=== PATIENT | male | born 1980 | race Caucasian/White ===

== ENCOUNTER 2016-09-06 03:46 | Inpatient (IN) | payer OTHER ==
[~2016-09-06] VITALS: Ht 157.5 cm; Wt 67.4 kg
--- NOTE | 2016-09-06 03:48 | ED.ADGEN ---
Adult General Chief Complaint Chief Complaint chest pain HPI HPI Patient is a 35 year old male who presents with with chest pressure that started about 2 hours ago. He states nothing makes it better or worse. Facial short of breath even sitting. He states it feels like somebody sitting on his chest. She's either had this sensation before. He denies any calf pain or long car trips prior to this. He did just get out of emergency department after trying to cut his wrist yesterday for suicide attempt. He states he was cleared by and didn't need hospitalization for psychiatric illness. He does smoke cigarettes and has since the age of 13 and averages about half a pack per day. He states is on no medications. Has a family history of coronary disease with his dad who got a stent about 5 years ago. Review of Systems Review of Systems Constitutional: Denies fever or chills [] Eyes: Denies change in visual acuity, redness, or eye pain [] HENT: Denies nasal congestion or sore throat [] Respiratory: Denies cough or shortness of breath [] Cardiovascular: No additional information not addressed in HPI [] GI: Denies abdominal pain, nausea, vomiting, bloody stools or diarrhea [] : Denies dysuria or hematuria [] Musculoskeletal: Denies back pain or joint pain [] Integument: Denies rash or skin lesions [] Neurologic: Denies headache, focal weakness or sensory changes [] Endocrine: Denies polyuria or polydipsia [] Current Medications Current Medications Current Medications Medications (Trade) Dose Ordered Sig/Harry Start Time Stop Time Status Last Admin Dose Admin Albuterol Sulfate (Ventolin) 2.5 mg STK-MED ONCE 09/06/16 04:43 09/06/16 04:44 DC Albuterol/ Ipratropium (Duoneb) 3 ml 1X ONCE 09/06/16 04:30 09/06/16 04:51 DC 09/06/16 04:30 3 ML Info (Do NOT chart on this entry -- for MONITORING) 1 each PRN DAILY PRN 09/06/16 05:00 09/08/16 04:59 Iohexol (Omnipaque 300 Mg/ml) 75 ml 1X ONCE 09/06/16 05:00 09/06/16 05:01 DC 09/06/16 04:56 75 ML Morphine Sulfate (Morphine 4mg Syringe) 4 mg PRN Q15MIN PRN 09/06/16 04:30 09/07/16 04:29 09/06/16 04:35 4 MG Ondansetron HCl (Zofran) 4 mg PRN Q4HRS PRN 09/06/16 06:15 09/07/16 06:14 Sodium Chloride 1,000 ml @ 1,000 mls/hr 1X ONCE 09/06/16 05:30 09/06/16 06:29 09/06/16 04:45 1,000 MLS/HR Allergies Allergies Allergies Uncoded Allergies Type Severity Reaction Last Updated Verified NOVACAINE Allergy Unknown 09/06/16 Physical Exam Physical Exam Constitutional: Well developed, well nourished, no acute distress, non-toxic appearance. [] HENT: Normocephalic, atraumatic, bilateral external ears normal, oropharynx moist, no oral exudates, nose normal. [] Eyes: PERRLA, EOMI, conjunctiva normal, no discharge. [] Neck: Normal range of motion, no tenderness, supple, no stridor. [] Cardiovascular:Heart rate regular rhythm, no murmur [] Lungs & Thorax: Mild expiratory wheezing bilaterally, good air flow bilaterally [] Abdomen: Bowel sounds normal, soft, no tenderness, no masses, no pulsatile masses. [] Skin: Warm, dry, no erythema, no rash. [] Back: No tenderness, no CVA tenderness. [] Extremities: No tenderness, no cyanosis, no clubbing, ROM intact, no edema. [] Neurologic: Alert and oriented X 3, normal motor function, normal sensory function, no focal deficits noted. [] Psychologic: Affect normal, judgement normal, mood normal. [] Current Patient Data Vital Signs Vital Signs Date Time Temp Pulse Resp B/P (MAP) Pulse Ox O2 Delivery O2 Flow Rate FiO2 09/06/16 04:35 22 96 Room Air Lab Results Laboratory Tests Test 09/06/16 04:15 White Blood Count 9.7 x10^3/uL (4.0-11.0) Red Blood Count 2.98 x10^6/uL (4.30-5.70) L Hemoglobin 9.5 g/dL (13.0-17.5) L Hematocrit 27.5 % (39.0-53.0) L Mean Corpuscular Volume 92 fL (79-100) Mean Corpuscular Hemoglobin 32 pg (25-35) Mean Corpuscular Hemoglobin Concent 35 g/dL (31-37) Red Cell Distribution Width 13.2 % (11.5-14.5) Platelet Count 200 x10^3/uL (140-400) Neutrophils (%) (Auto) 69 % (31-73) Lymphocytes (%) (Auto) 22 % (24-48) L Monocytes (%) (Auto) 6 % (0-9) Eosinophils (%) (Auto) 2 % (0-3) Basophils (%) (Auto) 1 % (0-3) Neutrophils # (Auto) 6.7 x10^3uL (1.8-7.7) Lymphocytes # (Auto) 2.2 x10^3/uL (1.0-4.8) Monocytes # (Auto) 0.6 x10^3/uL (0.0-1.1) Eosinophils # (Auto) 0.2 x10^3/uL (0.0-0.7) Basophils # (Auto) 0.0 x10^3/uL (0.0-0.2) Prothrombin Time 9.9 SEC (9.4-11.4) Prothrombin Time INR 1.0 (0.9-1.1) PTT 26 SEC (23-33) Urine Collection Type Unknown Urine Color Yellow Urine Clarity Clear Urine pH 5.5 Urine Specific [place] 1.010 Urine Protein 30 mg/dl (NEG-TRACE) Urine Glucose (UA) Neg mg/dL (NEG) Urine Ketones (Stick) Neg mg/dL (NEG) Urine Blood Small (NEG) Urine Nitrite Neg (NEG) Urine Bilirubin Neg (NEG) Urine Urobilinogen Dipstick 0.2 mg/dL (0.2 mg/dL) Urine Leukocyte Esterase Neg (NEG) Urine RBC 0 /HPF (0-2) Urine WBC Occ /HPF (0-4) Urine Squamous Epithelial Cells Occ /LPF Urine Bacteria Few /HPF (0-FEW) Sodium Level 140 mmol/L (136-145) Potassium Level 3.8 mmol/L (3.5-5.1) Chloride Level 106 mmol/L (98-107) Carbon Dioxide Level 26 mmol/L (21-32) Anion Gap 8 (6-14) Blood Urea Nitrogen 12 mg/dL (8-26) Creatinine 1.1 mg/dL (0.7-1.3) Estimated GFR (Cockcroft-Gault) 75.7 Glucose Level 105 mg/dL (70-99) H Calcium Level 8.1 mg/dL (8.5-10.1) L Magnesium Level 1.5 mg/dL (1.8-2.4) L Total Bilirubin 0.3 mg/dL (0.2-1.0) Direct Bilirubin 0.1 mg/dL (0.0-0.2) Aspartate Amino Transferase (AST) 63 U/L (15-37) H Alanine Aminotransferase (ALT) 32 U/L (16-63) Alkaline Phosphatase 65 U/L (46-116) Creatine Kinase 2888 U/L (39-308) H Creatine Kinase MB (Mass) 6.6 ng/mL (0.0-3.6) H Creatine Kinase MB Relative Index 0.2 % (0-4) Troponin I Quantitative < 0.017 ng/mL (0-0.055) JA-Uhf-M-Type Natriuretic Peptide 59 pg/mL (0-124) Total Protein 6.3 g/dL (6.4-8.2) L Albumin 3.0 g/dL (3.4-5.0) L Lipase 240 U/L (73-393) Urine Opiates Screen Pos (NEG) Urine Methadone Screen Neg (NEG) Urine Barbiturates Neg (NEG) Urine Phencyclidine Screen Neg (NEG) Urine Amphetamine/Methamphetamine Neg (NEG) Urine Benzodiazepines Screen Neg (NEG) Urine Cocaine Screen Neg (NEG) Urine Cannabinoids Screen Pos (NEG) Urine Ethyl Alcohol Neg (NEG) EKG EKG EKG shows sinus tachycardia the rate of 115 bpm, no ST elevations or T-wave inversions appreciated, normal axis, QTC 414 ms, as interpreted by me. Radiology/Procedures Radiology/Procedures [address] [address] IMAGING REPORT Signed PATIENT: ALLI RITTER ACCOUNT: [id number] : 1980 LOCATION: ER AGE: 35 SEX: M EXAM STATUS: PRE ER ORD. PHYSICIAN: MAGDALENA NIX MD REASON: soa, tachy, chest pain PROCEDURE: CT ANGIOGRAPHY CHEST PROCEDURE CT chest with contrast, pulmonary angiogram. HISTORY Chest pain, shortness of air, dizziness, tachycardia. Recent surgery of wrist. TECHNIQUE Helical CT imaging of the chest is performed after 75 cc Omnipaque 300 IV contrast using pulmonary angiogram protocol. A coronal 3D MIP reconstruction is performed to better evaluate the pulmonary arteries. PQRS: One or more the following individualized dose reduction techniques were utilized for the study: 1. Automated exposure control. 2. Adjustment of the mA and/or kV according to patient size. 3. Use of iterative reconstruction technique. COMPARISON None. FINDINGS Pulmonary arteries are adequately contrast opacified. There is partial filling defect in 2 subsegmental pulmonary arteries in the left upper lobe, image 57. No other filling defect is seen. No thoracic aortic dissection. There is ectasia of the ascending thoracic aorta. Thyroid is symmetric. Subcentimeter mediastinal lymph nodes. No hilar adenopathy. Cardiac size normal, no pericardial effusion. Respiratory motion artifact. Central airways are patent. Small areas of ground-glass opacity are seen in the left upper lobe and superior segment of right lower lobe and in the bilateral lower lobes. Discoid atelectasis in the bilateral basilar lower lobes. Mild mucous plugging basilar right lower lobe. No pleural effusion. Visualized upper abdomen is unremarkable. No compression fracture in the thoracic spine. IMPRESSION 1. Study is mildly positive for pulmonary embolus. There are partial filling defects in 2 subsegmental pulmonary arteries in the left upper lobe. 2. Mild right lower lobe bronchitis. 3. There are mild scattered ground-glass opacities in the lungs. Finding may be infectious/inflammatory or atelectatic. Electronically signed by: Tae Rodriguez MD (September 06, 2016 05:20:27) DICTATED AND SIGNED BY: TAE RODRIGUEZ MD DATE: 09/06/16 0520 CC: MAGDALENA NIX MD; PCP,NO ~ Course & Med Decision Making Course & Med Decision Making Pertinent Labs and Imaging studies reviewed. (See chart for details) CT angiogram confirms 2 small PEs. Patient is tachycardic and needed oxygen when he was sleeping. He received DuoNeb's, 2 L IV fluids and is being started on heparin and be admitted to Dr. Mosqueda. He is in stable condition at this time. Final Impression Final Impression Chest pain Pulmonary embolism Rhabdomyolysis Problems: Dragon Disclaimer Dragon Disclaimer This electronic medical record was generated, in whole or in part, using a voice recognition dictation system. MAGDALENA NIX MD September 06, 2016 03:48
[2016-09-06] MEDS ORDERED: IV NORMAL SALINE 1,000ML 1,000 ML IV SCH (04:05)
[2016-09-06] MEDS ORDERED: ONDANSETRON PF 4 MG/2 ML VIAL. IV ONE (04:30)
[2016-09-06] MEDS ORDERED: MORPHINE SULFATE 4 MG/ML DISP.SYRIN. IV/SQ PRN (04:30)
[2016-09-06] MEDS ORDERED: IPRATRPIUM/ALBUTEROL 0.5/2.5MG 3 ML NEBU. NEB ONE (04:30)
[2016-09-06 04:32] LABS: BASO % 1 % (0-3); EOS # 0.2 x10^3/uL (0.0-0.7); EOS % 2 % (0-3); HEMATOCRIT 27.5 % (39.0-53.0); HEMOGLOBIN 9.5 g/dL (13.0-17.5); LYMPH # 2.2 x10^3/uL (1.0-4.8); LYMPH % 22 % (24-48); MEAN CORPUSCULAR HEMOGLOBIN 32 pg (25-35); MEAN CORPUSCULAR HGB CONC 35 g/dL (31-37); MEAN CORPUSCULAR VOLUME 92 fL (79-100); MONO # 0.6 x10^3/uL (0.0-1.1); MONO % 6 % (0-9); NEUT # 6.7 x10^3uL (1.8-7.7); NEUT % 69 % (31-73); PLATELET COUNT 200 x10^3/uL (140-400); RED BLOOD COUNT 2.98 x10^6/uL (4.30-5.70); RED CELL DISTRIBUTION WIDTH 13.2 % (11.5-14.5); WHITE BLOOD COUNT 9.7 x10^3/uL (4.0-11.0)
[2016-09-06 04:40] LABS: BILIRUBIN,URINE NEG (NEG); CLARITY,URINE CLEAR; COLOR,URINE YELLOW; GLUCOSE,URINE NEG (NEG)
[2016-09-06 04:41] LABS: BACTERIA,URINE FEW /HPF (0-FEW); NITRITE,URINE NEG (NEG); RBC,URINE 0 /HPF (0-2); SQUAMOUS EPITHELIAL CELL,UR OCC /LPF; UROBILINOGEN,URINE 0.2 mg/dL (0.2 mg/dL); WBC,URINE OCC /HPF (0-4)
[2016-09-06] MEDS ORDERED: ALBUTEROL SULFATE 2.5 MG/3 ML NEBU. ONE (04:43)
[2016-09-06 04:51] LABS: BARBITURATES NEG (NEG); BENZODIAZEPINES NEG (NEG); CANNABINOIDS POS (NEG); COCAINE NEG (NEG); METHADONE NEG (NEG); OPIATES POS (NEG); PHENCYCLIDINE NEG (NEG)
[2016-09-06 04:54] LABS: AMPHETAMINE/METHAMPHETAMINE NEG (NEG)
[2016-09-06] MEDS ORDERED: CONTRAST GIVEN MC PRN (05:00)
[2016-09-06] MEDS ORDERED: IOHEXOL 300 MG/ML 75 ML VIAL. IV ONE (05:00)
[2016-09-06 05:05] LABS: CALCIUM 8.1 mg/dL (8.5-10.1); CREATININE 1.1 mg/dL (0.7-1.3); DIRECT BILIRUBIN 0.1 mg/dL (0.0-0.2); GFR 75.7; MAGNESIUM 1.5 mg/dL (1.8-2.4); POTASSIUM 3.8 mmol/L (3.5-5.1); TOTAL BILIRUBIN 0.3 mg/dL (0.2-1.0); TOTAL PROTEIN 6.3 g/dL (6.4-8.2)
--- NOTE | 2016-09-06 05:22 | RAD ---
PROCEDURE CT chest with contrast, pulmonary angiogram. HISTORY Chest pain, shortness of air, dizziness, tachycardia. Recent surgery of wrist. TECHNIQUE Helical CT imaging of the chest is performed after 75 cc Omnipaque 300 IV contrast using pulmonary angiogram protocol. A coronal 3D MIP reconstruction is performed to better evaluate the pulmonary arteries. PQRS: One or more the following individualized dose reduction techniques were utilized for the study: 1. Automated exposure control. 2. Adjustment of the mA and/or kV according to patient size. 3. Use of iterative reconstruction technique. COMPARISON None. FINDINGS Pulmonary arteries are adequately contrast opacified. There is partial filling defect in 2 subsegmental pulmonary arteries in the left upper lobe, image 57. No other filling defect is seen. No thoracic aortic dissection. There is ectasia of the ascending thoracic aorta. Thyroid is symmetric. Subcentimeter mediastinal lymph nodes. No hilar adenopathy. Cardiac size normal, no pericardial effusion. Respiratory motion artifact. Central airways are patent. Small areas of ground-glass opacity are seen in the left upper lobe and superior segment of right lower lobe and in the bilateral lower lobes. Discoid atelectasis in the bilateral basilar lower lobes. Mild mucous plugging basilar right lower lobe. No pleural effusion. Visualized upper abdomen is unremarkable. No compression fracture in the thoracic spine. IMPRESSION 1. Study is mildly positive for pulmonary embolus. There are partial filling defects in 2 subsegmental pulmonary arteries in the left upper lobe. 2. Mild right lower lobe bronchitis. 3. There are mild scattered ground-glass opacities in the lungs. Finding may be infectious/inflammatory or atelectatic. Electronically signed by: Tae Rodriguez MD (September 06, 2016 05:20:27)
[2016-09-06] MEDS ORDERED: IV NORMAL SALINE 1,000ML 1,000 ML IV ONE (05:30)
[2016-09-06] MEDS ORDERED: ONDANSETRON PF 4 MG/2 ML VIAL. IV PRN (06:15)
[2016-09-06] MEDS ORDERED: HEPARIN for IV BOLUS 10,000 UNIT/10 ML VIAL. IV PRN ×2 (06:30)
[2016-09-06] MEDS ORDERED: HEPARIN for IV BOLUS 10,000 UNIT/10 ML VIAL. IV ONE ×2 (06:30→09:00)
[2016-09-06] MEDS ORDERED: HEPARIN 25,000UTS/500ML PREMIX 500 ML IV PRN (06:30)
--- NOTE | 2016-09-06 06:41 | EKG ---
[address] [address] Test Date: 2016-09-06 Test Time: 04:11:03 Pat Name: ALLI RITTER Department: Room: 111 A Gender: M Frame Nailer: JESSICA : 1980 Requested By: MAGDALENA NIX Order Number: [id number] Reading MD: Ned Carrizales Measurements Intervals [place] Rate: 115 P: 60 IA: 108 QRS: 42 QRSD: 82 T: 39 QT: 298 QTc: 414 Interpretive Statements SINUS TACHYCARDIA Electronically Signed On 09-12-2016 9:03:04 CDT by Ned Carrizales
--- NOTE | 2016-09-06 06:59 | RAD ---
Indication: Chest pain and shortness of air. Time of exam 0431 hours. FINDINGS: The heart size is normal. The lungs are clear. No pleural effusion or pneumothorax is identified. The pulmonary vascularity is normal. IMPRESSION: No acute abnormality detected.
--- NOTE | 2016-09-06 07:47 | ACF ---
Admission Criteria Forms PULMONARY EMBOLISM Clinical Indications for Admission to Inpatient Care (Place 'X' for any and all applicable criteria): Admission is indicated by ANY ONE of the following 1,2,3,4,5 [ ]I. Onset of hypoxia [ ]II. Hemodynamic instability 5 [ ]III. Massive pulmonary embolism (eg, acute embolism causing sustained hypotension, pulselessness, or bradycardia)5 [ ]IV. Need for IV narcotics (eg, to treat dyspnea) [ ]V. Current use of home oxygen therapy [ ]. Active bleeding [ ]VII. Recent surgery [ ]VIII. Active peptic ulcer disease [ ]IX. Documented extensive thrombosis (eg, clot in vena cava or above iliofemoral bifurcation) [ ]X. Embolism while on anticoagulation [ ]XI. 6 [X]XII. Appropriate monitoring and therapy cannot be provided in home or outpatient setting. [ ]XIII. Systemic or catheter-directed thrombolysis 5,7 [ ]XIV. Catheter embolectomy and fragmentation 6 [ ]XV. Vena cava filter placement5 [ ]XVI. Severely diminished cardiopulmonary reserve (eg, cor pulmonale, pulmonary hypertension) [ ]XVII. Severe renal failure (eg, GFR less than 30 mL/min/1.73m2 (0.5 mL/sec/ 1.73m2)) [ ]XVIII.Right ventricular dysfunction (eg, by echocardiogram) 6,11 [ ]XIX. Positive cardiac biomarker (eg, troponin T or I > 0.1 ng/mL (mcg/L), highly sensitive troponin I assay greater than 0.014 ng/mL (mcg/L), BNP or NT proBNP > assay threshold)5,8,9 [ ]XX. Known clotting abn or def (eg, liver disease, antithrombin III, protein C, or protein S abnormality) [ ]XXI. History of heparin-induced thrombocytopenia [ ]XXII. Inpatient admission required rather than observation care (Also use Pulmonary Embolism: Observation Care guideline as appropriate) because of ANY ONE of the following: [ ] a) Significant autoimmune (thrombocytopenia) or coagulopathic reaction occurs in response to anticoagulation [ ] b) Respiratory symptoms (eg, tachypnea, dyspnea) that are severe or persistent [ ] c) Other condition, treatment, or monitoring requiring inpatient admission Extended stay beyond goal length of stay may be needed for 3,28 [ ]a) Hemorrhage or recent surgery [ ]b) Recurrent thromboembolism [ ]c) Persistent hypoxemia [ ]d) Heparin-induced thrombocytopenia The original [facility] content created by [facility] has been revised. The portions of the content which have been revised are identified through the use of italic text or in bold, and [facility] has neither reviewed nor approved the modified material. All other unmodified content is copyright [facility]. Please see references footnoted in the original [facility] edition 2016 Admission Criteria Met?: Yes NOLBERTO YOUNG September 06, 2016 07:47
[2016-09-06] MEDS ORDERED: DOXY100C PO (08:54)
[2016-09-06] MEDS ORDERED: SENN-37 PO (08:54)
[2016-09-06] MEDS ORDERED: OXYC5TAB PO (08:56)
[2016-09-06 09:31] VITALS: BP 120/82
--- NOTE | 2016-09-06 09:41 | PDOC2 ---
LEONEL FARMER PROJECT MANAGEMENT INSTRUCTOR 09/06/16 0941: CONSULT Date of Admission DATE: 09/06/16 TIME: 09:38 Reason for Consult: cp Problem List Problems Medical Problems: (1) Pulmonary emboli Status: Acute History of Present Illness Mr Nation is a 35 year old male just discharged from yesterday after suicide attempt and surgical repair of left wrist. He presents today with complaints of chest pressure and sharp pain. Discomfort is worsened with deep inspiration. He denies discomfort if he lays quietly. He denies increase with exertion or position change. He denies any other complaints. Pulmonary: Asthma Psych: Other (recent suicide attempt) Past Surgical History surgical repair left wrist post suicide attempt, completed at in the last 48 hours. Past Surgical History: Appendectomy Family History CAD - father Mother - diabetes and cancer Social History + smoker, denies illicit drugs or significant ETOH, suicide attempt requiring surgical repair left wrist at within the last 48 hours. treated and released by . Current Medications Current Medications Sodium Chloride 1,000 ml @ 1,000 mls/hr Q1H IV Last administered on 09/06/16 04:35; Start 09/06/16 at 04:05; Stop 09/06/16 at 05:04; Status DC Morphine Sulfate (Morphine 4mg Syringe) 4 mg PRN Q15MIN PRN IV/SQ PAIN GREATER THAN 3/10 Last administered on 09/06/16 04:35; Start 09/06/16 at 04:30; Stop 02/14 at 04:29 Ondansetron HCl (Zofran) 4 mg 1X ONCE IV Last administered on 09/06/16 04:35; Start 09/06/16 at 04:30; Stop 09/06/16 at 04:51; Status DC Iohexol (Omnipaque 300 Mg/ml) 75 ml 1X ONCE IV Last administered on 09/06/16 04:56; Start 09/06/16 at 05:00; Stop 09/06/16 at 05:01; Status DC Albuterol/ Ipratropium (Duoneb) 3 ml 1X ONCE NEB Last administered on 04:30; Start 09/06/16 at 04:30; Stop 09/06/16 at 04:51; Status DC Albuterol Sulfate (Ventolin) 2.5 mg STK-MED ONCE .ROUTE ; Start 09/06/16 at 04:43 ; Stop 09/06/16 at 04:44; Status DC Info (Do NOT chart on this entry -- for MONITORING) 1 each PRN DAILY PRN MC SEE COMMENTS; Start 09/06/16 at 05:00; Stop 09/08/16 at 04:59 Sodium Chloride 1,000 ml @ 1,000 mls/hr 1X ONCE IV Last administered on 04:45; Start 09/06/16 at 05:30; Stop 09/06/16 at 06:29; Status DC Ondansetron HCl (Zofran) 4 mg PRN Q4HRS PRN IV NAUSEA/VOMITING; Start 09/06/16 at 06:15; Stop 09/07/16 at 06:14 Heparin Sodium/ Dextrose 500 ml @ 0 mls/hr CONT PRN IV SEE I/O RECORD Last administered on 09/06/16 09:07; Start 09/06/16 at 06:30 Heparin Sodium (Porcine) 5,000 unit 1X ONCE IV ; Start 09/06/16 at 06:30; Stop 09/06/16 at 06:34; Status DC Heparin Sodium (Porcine) 2,000 unit PRN Q6HRS PRN IV FOLLOW PROTOCOL GUIDELINES ; Start 09/06/16 at 06:30 Heparin Sodium (Porcine) 1,000 unit PRN Q6HRS PRN IV FOLLOW PROTOCOL GUIDELINES ; Start 09/06/16 at 06:30 Heparin Sodium (Porcine) 5,000 unit 1X ONCE IV Last administered on 09/06/16 09:10; Start 09/06/16 at 09:00; Stop 09/06/16 at 09:01; Status DC Active Scripts Active Reported Oxycodone Hcl 5 Mg Tablet 1-2 Tab PO PRN Q6HRS PRN Vibramycin (Doxycycline Hyclate) 100 Mg Capsule 1 Cap PO BID 10 Days Senokot-S Tablet (Sennosides/Docusate Sodium) 1 Each Tablet 1 Tab PO BID Allergies: Uncoded Allergies: NOVACAINE (Allergy, Unknown, 09/06/16) Review of System as per HPI General: Alert, Oriented X3, Cooperative, No acute distress HEENT: Atraumatic, EOMI, Mucous membr. moist/pink Lungs: Other (expiratory wheezing throughout) Heart: Regular rate, Normal S1, Normal S2, Other (no gallops, clicks or rubs) Abdomen: Normal bowel sounds, Soft, No tenderness Extremities: No clubbing, No cyanosis, Normal pulses, Other (left wrist splint and ACEI in place) Neuro: Normal speech, Strength at 5/5 X4 ext Psych/Mental Status: Mental status NL, Mood NL VITALS Vital Signs Date Time Temp Pulse Resp B/P (MAP) Pulse Ox O2 Delivery O2 Flow Rate FiO2 09/06/16 09:31 98.5 106 20 120/82 (95) 94 Room Air 09/06/16 06:24 3.0 Labs Laboratory Tests Test 09/06/16 04:15 White Blood Count 9.7 x10^3/uL (4.0-11.0) Red Blood Count 2.98 x10^6/uL (4.30-5.70) Hemoglobin 9.5 g/dL (13.0-17.5) Hematocrit 27.5 % (39.0-53.0) Mean Corpuscular Volume 92 fL (79-100) Mean Corpuscular Hemoglobin 32 pg (25-35) Mean Corpuscular Hemoglobin Concent 35 g/dL (31-37) Red Cell Distribution Width 13.2 % (11.5-14.5) Platelet Count 200 x10^3/uL (140-400) Neutrophils (%) (Auto) 69 % (31-73) Lymphocytes (%) (Auto) 22 % (24-48) Monocytes (%) (Auto) 6 % (0-9) Eosinophils (%) (Auto) 2 % (0-3) Basophils (%) (Auto) 1 % (0-3) Neutrophils # (Auto) 6.7 x10^3uL (1.8-7.7) Lymphocytes # (Auto) 2.2 x10^3/uL (1.0-4.8) Monocytes # (Auto) 0.6 x10^3/uL (0.0-1.1) Eosinophils # (Auto) 0.2 x10^3/uL (0.0-0.7) Basophils # (Auto) 0.0 x10^3/uL (0.0-0.2) Prothrombin Time 9.9 SEC (9.4-11.4) Prothromb Time International Ratio 1.0 (0.9-1.1) Activated Partial Thromboplast Time 26 SEC (23-33) Urine Collection Type Unknown Urine Color Yellow Urine Clarity Clear Urine pH 5.5 Urine Specific [place] 1.010 Urine Protein 30 mg/dl (NEG-TRACE) Urine Glucose (UA) Neg mg/dL (NEG) Urine Ketones (Stick) Neg mg/dL (NEG) Urine Blood Small (NEG) Urine Nitrite Neg (NEG) Urine Bilirubin Neg (NEG) Urine Urobilinogen Dipstick 0.2 mg/dL (0.2 mg/dL) Urine Leukocyte Esterase Neg (NEG) Urine RBC 0 /HPF (0-2) Urine WBC Occ /HPF (0-4) Urine Squamous Epithelial Cells Occ /LPF Urine Bacteria Few /HPF (0-FEW) Sodium Level 140 mmol/L (136-145) Potassium Level 3.8 mmol/L (3.5-5.1) Chloride Level 106 mmol/L (98-107) Carbon Dioxide Level 26 mmol/L (21-32) Anion Gap 8 (6-14) Blood Urea Nitrogen 12 mg/dL (8-26) Creatinine 1.1 mg/dL (0.7-1.3) Estimated GFR (Cockcroft-Gault) 75.7 Glucose Level 105 mg/dL (70-99) Calcium Level 8.1 mg/dL (8.5-10.1) Magnesium Level 1.5 mg/dL (1.8-2.4) Total Bilirubin 0.3 mg/dL (0.2-1.0) Direct Bilirubin 0.1 mg/dL (0.0-0.2) Aspartate Amino Transf (AST/SGOT) 63 U/L (15-37) Alanine Aminotransferase (ALT/SGPT) 32 U/L (16-63) Alkaline Phosphatase 65 U/L (46-116) Creatine Kinase 2888 U/L (39-308) Creatine Kinase MB (Mass) 6.6 ng/mL (0.0-3.6) Creatine Kinase MB Relative Index 0.2 % (0-4) Troponin I Quantitative < 0.017 ng/mL (0-0.055) HT-Glz-N-Type Natriuretic Peptide 59 pg/mL (0-124) Total Protein 6.3 g/dL (6.4-8.2) Albumin 3.0 g/dL (3.4-5.0) Lipase 240 U/L (73-393) Urine Opiates Screen Pos (NEG) Urine Methadone Screen Neg (NEG) Urine Barbiturates Neg (NEG) Urine Phencyclidine Screen Neg (NEG) Urine Amphetamine/Methamphetamine Neg (NEG) Urine Benzodiazepines Screen Neg (NEG) Urine Cocaine Screen Neg (NEG) Urine Cannabinoids Screen Pos (NEG) Urine Ethyl Alcohol Neg (NEG) Images EKG - sinus tachycardia, no acute ischemic changes. CTA - 1. Study is mildly positive for pulmonary embolus. There are partial filling defects in 2 subsegmental pulmonary arteries in the left upper lobe. 2. Mild right lower lobe bronchitis. 3. There are mild scattered ground-glass opacities in the lungs. Finding may be infectious/inflammatory or atelectatic. CXR - IMPRESSION: No acute abnormality detected. Assessment/Plan 1. Chest pain, pleuritic - normal EKG. initial troponin normal. Suggest echocardiogram to evaluate LV function and pulmonary pressure. 2. PE - on heparin. 2 partial subsegmental PE noted on CT. MGMT per PCP 3. family history of CAD 4. asthma- per PCP 5. tobaccoism - cessation encouraged Problems: JOSE MONGE MD 09/06/16 1340: CONSULT Allergies: Uncoded Allergies: NOVACAINE (Allergy, Unknown, 09/06/16) Assessment/Plan Patient seen and examined. Agree with ALFALFA DEHYDRATOR OPERATOR's assessment and plan. CP pleuritic probably related to PE CT ruled out Check 2D echo to assess LV function and r/o wall motion abnormalities Thank you for your consultation Problems: LEONEL FARMER APRN September 06, 2016 09:41 JOSE MONGE MD September 06, 2016 13:40
[2016-09-06 10:15] VITALS: BP 135/90
[2016-09-06] MEDS ORDERED: MAGNESIUM SULFATE 2GM 50 ML IV ONE (10:30)
[2016-09-06] MEDS: oxyCODONE IR 5 MG TABLET PO PRN ×2 (11:54→18:13)
--- NOTE | 2016-09-06 14:48 | CARD ---
APPROVED REPORT EXAM: Two-dimensional and M-mode echocardiogram with Doppler and color Doppler. Other Information Quality : GoodHR: 103bpm Rhythm : Tachycardia INDICATION Chest Pain Pulmonary embolism LEFT VENTRICLE The left ventricle is normal size. There is normal left ventricular wall thickness. The left ventricu lar systolic function is normal and the ejection fraction is within normal range. The Ejection Fracti on is 60-65%. There is normal LV segmental wall motion. The left ventricular diastolic function and f illing is normal for age. RIGHT VENTRICLE The right ventricle is normal size. There is normal right ventricular wall thickness. The right ventr icular systolic function is normal. ATRIA The left atrium size is normal. The right atrium size is normal. The interatrial septum is intact wit h no evidence for an atrial septal defect or patent foramen ovale as noted on 2-D or Doppler imaging. AORTIC VALVE The aortic valve is normal in structure and function. Doppler and Color Flow revealed no significant aortic regurgitation. There is no significant aortic valvular stenosis. MITRAL VALVE The mitral valve is normal in structure and function. There is no evidence of mitral valve prolapse. There is no mitral valve stenosis. TRICUSPID VALVE Doppler and Color Flow revealed no tricuspid valve regurgitation noted. Unable to calculate the pulmo nary artery pressure. PULMONIC VALVE Doppler and Color Flow revealed trace pulmonic valvular regurgitation. There is no pulmonic valvular stenosis. GREAT VESSELS The aortic root is normal in size. The ascending aorta is mildly dilated at 3.5 cm. The pulmonary art maverick is normal. The IVC is normal in size and collapses >50% with inspiration. PERICARDIAL EFFUSION There is no evidence of significant pericardial effusion. Critical Notification Critical Value: No <Conclusion> The left ventricular systolic function is normal and the ejection fraction is within normal range. Th e Ejection Fraction is 60-65%. There is normal LV segmental wall motion. The ascending aorta is mildly dilated at 3.5 cm.
[2016-09-06 15:26] VITALS: BP 154/86
[2016-09-06] MEDS: IV NORMAL SALINE 1,000ML 1,000 ML IV SCH (16:41)
[2016-09-06] MEDS: RIVAROXABAN 15 MG TABLET. PO SCH (16:42)
[2016-09-06] MEDS: NICOTINE 14MG PATCH. TD SCH (17:33)
[2016-09-06 18:28] VITALS: BP 153/73
--- NOTE | 2016-09-06 18:50 | HP ---
ADMIT DATE: 09/06/2016 HISTORY OF PRESENT ILLNESS: The patient is a 35-year-old male patient who was just discharged from [facility] yesterday after suicidal attempt and surgical repair of his left chest. He presents today with a complaint of chest pressure and sharp pain, discomfort is worse with deep inspiration. He denies any discomfort. He relays quietly. Denies increased with exertion or position changes. Denies any other complaints. He apparently was evaluated in the Emergency Room and a CT scan of the chest with PE protocol showed that he has pulmonary emboli with feeling defect in ____ pulmonary artery in his left upper lobe. He was also noted to have mild elevated CK and mild rhabdomyolysis and was admitted with diagnosis of PE and rhabdomyolysis. PAST MEDICAL HISTORY: Significant for bronchial asthma. PAST SURGICAL HISTORY: Significant for surgical repair of left chest, post-suicide attempt completed in less than 48 hours. He has also had appendectomy. FAMILY HISTORY: Significant for coronary artery disease and bronchial asthma in his father. The mother has had diabetes and cancer. SOCIAL HISTORY: He is has a son and daughter. He smokes, but denied any illicit drugs or significant ETOH. He has had a suicidal attempt requiring surgical repair of his left chest at [facility] within the last 48 hours. ALLERGIES: He is allergic to NOVOCAIN. MEDICATIONS: He is currently on following medications: He was at least on doxycycline 100 mg p.o. b.i.d., oxycodone 5 mg tablet every 6 hours, senna docusate 1 tablet twice a day. PHYSICAL EXAMINATION: GENERAL: On examining him, he looked well and was clearly in no apparent respiratory distress. He was pale, but no jaundice, cyanosis, or thyromegaly. No jugular venous distention. No limb edema. VITAL SIGNS: His heart rate was 121, blood pressure was 127/85, temperature was 98.8, respiratory rate 22, and oxygen saturation was 96% on 3 liters of oxygen by nasal cannula. HEAD, EYES, EARS, NOSE AND THROAT: Showed normocephalic, atraumatic. NECK: Supple. HEART: Showed normal first and second heart sounds with no gallop, rub or murmur. CHEST: Shows central trachea, equal bilateral expansion, air entry, expansion. Bilateral scattered rhonchi. I could not appreciate any crepitation. ABDOMEN: Distended, soft, nontender. No guarding or rigidity. No organomegaly. Hernial orifices intact. Bowel sounds normal. NEUROLOGIC: He was awake, alert, responding appropriately. Cranial nerves intact. EXTREMITIES: He moves extremities without difficulty. His left ____ is covered with dressing. LABORATORY DATA: His lab work on admission showed a white cell count of 9700, hemoglobin 9.5, hematocrit 37.5, MCV 92, and platelet count 200,000. His chemistry showed a serum sodium 140, potassium 3.8, chloride 106, bicarbonate 26, anion gap of 8, BUN 12, creatinine 1.2, estimated GFR was 76 mL per minute, his glucose was 105, calcium was 8.1, magnesium 1.5. Total bilirubin, AST, ALT, alkaline phosphatase were normal. His CPK was high at 2888. His total protein was 6.3, albumin was 3 and lipase was 114. TSH was 1.720. His first set of troponin was less than 0.017. ASSESSMENT AND PLAN: The patient was admitted and started on heparin as per protocol. Continue with pain medication and we will continue also his doxycycline and decide on further management accordingly. CANDE MCKINNEY MD DR: NILES/valdo JOB#: [id number] / [id number]
[2016-09-06] MEDS: DOXYCYCLINE HYCLATE 100 MG TABLET PO SCH (20:27)
[2016-09-06] MEDS: SENNOSIDES/DOCUSATE 8.6/50MG TABLET. PO SCH (20:27)
[2016-09-06 22:56] VITALS: BP 168/82
[2016-09-07 01:00] VITALS: BP 138/89
[2016-09-07] MEDS: IV NORMAL SALINE 1,000ML 1,000 ML IV SCH (01:06)
[2016-09-07] MEDS: oxyCODONE IR 5 MG TABLET PO PRN ×2 (01:06→08:23)
[2016-09-07 05:01] VITALS: BP 118/85
[2016-09-07 06:31] LABS: BASO # 0.1 x10^3/uL (0.0-0.2); BASO % 1 % (0-3); EOS # 0.3 x10^3/uL (0.0-0.7); EOS % 4 % (0-3); HEMATOCRIT 24.7 % (39.0-53.0); HEMOGLOBIN 8.5 g/dL (13.0-17.5); LYMPH # 2.1 x10^3/uL (1.0-4.8); LYMPH % 27 % (24-48); MEAN CORPUSCULAR HEMOGLOBIN 32 pg (25-35); MEAN CORPUSCULAR HGB CONC 35 g/dL (31-37); MEAN CORPUSCULAR VOLUME 92 fL (79-100); MONO # 0.5 x10^3/uL (0.0-1.1); MONO % 7 % (0-9); NEUT # 4.9 x10^3uL (1.8-7.7); NEUT % 62 % (31-73); PLATELET COUNT 186 x10^3/uL (140-400); RED BLOOD COUNT 2.69 x10^6/uL (4.30-5.70); RED CELL DISTRIBUTION WIDTH 13.7 % (11.5-14.5); WHITE BLOOD COUNT 7.9 x10^3/uL (4.0-11.0)
[2016-09-07 06:49] LABS: ALBUMIN 2.6 g/dL (3.4-5.0); ALBUMIN/GLOBULIN RATIO 0.8 (1.0-1.7); C REACTIVE PROTEIN 81.3 mg/L (0-3.3); CALCIUM 7.8 mg/dL (8.5-10.1); GFR 84.5; POTASSIUM 3.9 mmol/L (3.5-5.1); TOTAL BILIRUBIN 0.3 mg/dL (0.2-1.0); TOTAL PROTEIN 5.9 g/dL (6.4-8.2)
[2016-09-07] MEDS: RIVAROXABAN 15 MG TABLET. PO SCH (08:23)
[2016-09-07] MEDS: DOXYCYCLINE HYCLATE 100 MG TABLET PO SCH (08:24)
[2016-09-07] MEDS: NICOTINE 14MG PATCH. TD SCH (08:24)
[2016-09-07] MEDS: SENNOSIDES/DOCUSATE 8.6/50MG TABLET. PO SCH (08:26)
--- NOTE | 2016-09-07 10:49 | PDOC ---
PROGRESS NOTES Diagnosis Problem Problems Medical Problems: (1) Pulmonary emboli Status: Acute Assessment Problems Medical Problems: (1) Pulmonary emboli Status: Acute 1. PE - mgmt per PCP. 2. chest pain, pleuritic - normal LVEF and wall motion. SC ruled out. 3. asthma - mgmt per PCP No further cardiac recommendations. FU PRN. Problems: Subjective chest pain improved. no dyspnea. wants to go home. Objective Vital Signs Date Time Temp Pulse Resp B/P (MAP) Pulse Ox O2 Delivery O2 Flow Rate FiO2 09/07/16 07:45 Room Air 09/07/16 05:01 97.6 96 20 118/85 (96) 97 2.0 Intake and Output 09/07/16 07:00 Intake Total 779.31 ml Balance 779.31 ml Intake Oral 460 ml IV Total 319.31 ml # Voids 5 Abdomen: Normal bowel sounds, Soft, No tenderness Heart: Regular rate, Normal S1, Normal S2, No murmurs, Gallops Extremities: No cyanosis, No edema, Normal pulses, Other (left wrist splinted and estefanía wrapped) General: Alert, Oriented X3, Cooperative, No acute distress HEENT: Atraumatic, EOMI, Mucous membr. moist/pink Lungs: Other (decreased with expiratory wheezing throughout) Neuro: Normal speech, Reflexes 2+ Psych/Mental Status: Mental status NL, Mood NL Review of Relevant I have reviewed the following items patricia (where applicable) has been applied. Labs Laboratory Tests Test 09/06/16 04:15 09/06/16 11:00 09/06/16 15:00 09/06/16 17:00 White Blood Count 9.7 x10^3/uL (4.0-11.0) Red Blood Count 2.98 x10^6/uL (4.30-5.70) Hemoglobin 9.5 g/dL (13.0-17.5) Hematocrit 27.5 % (39.0-53.0) Mean Corpuscular Volume 92 fL (79-100) Mean Corpuscular Hemoglobin 32 pg (25-35) Mean Corpuscular Hemoglobin Concent 35 g/dL (31-37) Red Cell Distribution Width 13.2 % (11.5-14.5) Platelet Count 200 x10^3/uL (140-400) Neutrophils (%) (Auto) 69 % (31-73) Lymphocytes (%) (Auto) 22 % (24-48) Monocytes (%) (Auto) 6 % (0-9) Eosinophils (%) (Auto) 2 % (0-3) Basophils (%) (Auto) 1 % (0-3) Neutrophils # (Auto) 6.7 x10^3uL (1.8-7.7) Lymphocytes # (Auto) 2.2 x10^3/uL (1.0-4.8) Monocytes # (Auto) 0.6 x10^3/uL (0.0-1.1) Eosinophils # (Auto) 0.2 x10^3/uL (0.0-0.7) Basophils # (Auto) 0.0 x10^3/uL (0.0-0.2) Prothrombin Time 9.9 SEC (9.4-11.4) Prothromb Time International Ratio 1.0 (0.9-1.1) Activated Partial Thromboplast Time 26 SEC (23-33) 43 SEC (23-33) Urine Collection Type Unknown Urine Color Yellow Urine Clarity Clear Urine pH 5.5 Urine Specific [place] 1.010 Urine Protein 30 mg/dl (NEG-TRACE) Urine Glucose (UA) Neg mg/dL (NEG) Urine Ketones (Stick) Neg mg/dL (NEG) Urine Blood Small (NEG) Urine Nitrite Neg (NEG) Urine Bilirubin Neg (NEG) Urine Urobilinogen Dipstick 0.2 mg/dL (0.2 mg/dL) Urine Leukocyte Esterase Neg (NEG) Urine RBC 0 /HPF (0-2) Urine WBC Occ /HPF (0-4) Urine Squamous Epithelial Cells Occ /LPF Urine Bacteria Few /HPF (0-FEW) Sodium Level 140 mmol/L (136-145) Potassium Level 3.8 mmol/L (3.5-5.1) Chloride Level 106 mmol/L (98-107) Carbon Dioxide Level 26 mmol/L (21-32) Anion Gap 8 (6-14) Blood Urea Nitrogen 12 mg/dL (8-26) Creatinine 1.1 mg/dL (0.7-1.3) Estimated GFR (Cockcroft-Gault) 75.7 Glucose Level 105 mg/dL (70-99) Calcium Level 8.1 mg/dL (8.5-10.1) Magnesium Level 1.5 mg/dL (1.8-2.4) Total Bilirubin 0.3 mg/dL (0.2-1.0) Direct Bilirubin 0.1 mg/dL (0.0-0.2) Aspartate Amino Transf (AST/SGOT) 63 U/L (15-37) Alanine Aminotransferase (ALT/SGPT) 32 U/L (16-63) Alkaline Phosphatase 65 U/L (46-116) Creatine Kinase 2888 U/L (39-308) Creatine Kinase MB (Mass) 6.6 ng/mL (0.0-3.6) Creatine Kinase MB Relative Index 0.2 % (0-4) Troponin I Quantitative < 0.017 ng/mL (0-0.055) < 0.017 ng/mL (0-0.055) < 0.017 ng/mL (0-0.055) SC-Uyd-R-Type Natriuretic Peptide 59 pg/mL (0-124) Total Protein 6.3 g/dL (6.4-8.2) Albumin 3.0 g/dL (3.4-5.0) Lipase 240 U/L (73-393) Thyroid Stimulating Hormone (TSH) 1.720 uIU/mL (0.358-3.740) Urine Opiates Screen Pos (NEG) Urine Methadone Screen Neg (NEG) Urine Barbiturates Neg (NEG) Urine Phencyclidine Screen Neg (NEG) Urine Amphetamine/Methamphetamine Neg (NEG) Urine Benzodiazepines Screen Neg (NEG) Urine Cocaine Screen Neg (NEG) Urine Cannabinoids Screen Pos (NEG) Urine Ethyl Alcohol Neg (NEG) Test 09/07/16 06:10 White Blood Count 7.9 x10^3/uL (4.0-11.0) Red Blood Count 2.69 x10^6/uL (4.30-5.70) Hemoglobin 8.5 g/dL (13.0-17.5) Hematocrit 24.7 % (39.0-53.0) Mean Corpuscular Volume 92 fL (79-100) Mean Corpuscular Hemoglobin 32 pg (25-35) Mean Corpuscular Hemoglobin Concent 35 g/dL (31-37) Red Cell Distribution Width 13.7 % (11.5-14.5) Platelet Count 186 x10^3/uL (140-400) Neutrophils (%) (Auto) 62 % (31-73) Lymphocytes (%) (Auto) 27 % (24-48) Monocytes (%) (Auto) 7 % (0-9) Eosinophils (%) (Auto) 4 % (0-3) Basophils (%) (Auto) 1 % (0-3) Neutrophils # (Auto) 4.9 x10^3uL (1.8-7.7) Lymphocytes # (Auto) 2.1 x10^3/uL (1.0-4.8) Monocytes # (Auto) 0.5 x10^3/uL (0.0-1.1) Eosinophils # (Auto) 0.3 x10^3/uL (0.0-0.7) Basophils # (Auto) 0.1 x10^3/uL (0.0-0.2) Erythrocyte Sedimentation Rate 38 (0-15) Activated Partial Thromboplast Time 25 SEC (23-33) Sodium Level 141 mmol/L (136-145) Potassium Level 3.9 mmol/L (3.5-5.1) Chloride Level 106 mmol/L (98-107) Carbon Dioxide Level 28 mmol/L (21-32) Anion Gap 7 (6-14) Blood Urea Nitrogen 8 mg/dL (8-26) Creatinine 1.0 mg/dL (0.7-1.3) Estimated GFR (Cockcroft-Gault) 84.5 BUN/Creatinine Ratio 8 (6-20) Glucose Level 92 mg/dL (70-99) Calcium Level 7.8 mg/dL (8.5-10.1) Total Bilirubin 0.3 mg/dL (0.2-1.0) Aspartate Amino Transf (AST/SGOT) 37 U/L (15-37) Alanine Aminotransferase (ALT/SGPT) 28 U/L (16-63) Alkaline Phosphatase 61 U/L (46-116) Creatine Kinase 980 U/L (39-308) C-Reactive Protein 81.3 mg/L (0-3.3) Total Protein 5.9 g/dL (6.4-8.2) Albumin 2.6 g/dL (3.4-5.0) Albumin/Globulin Ratio 0.8 (1.0-1.7) Medications Current Medications Sodium Chloride 1,000 ml @ 1,000 mls/hr Q1H IV Last administered on 5/9/17at 04:35; Start 09/06/16 at 04:05; Stop 09/06/16 at 05:04; Status DC Morphine Sulfate (Morphine 4mg Syringe) 4 mg PRN Q15MIN PRN IV/SQ PAIN GREATER THAN 3/10 Last administered on 09/06/16 04:35; Start 09/06/16 at 04:30; Stop 02/14 at 04:29; Status DC Ondansetron HCl (Zofran) 4 mg 1X ONCE IV Last administered on 09/06/16 04:35; Start 09/06/16 at 04:30; Stop 09/06/16 at 04:51; Status DC Iohexol (Omnipaque 300 Mg/ml) 75 ml 1X ONCE IV Last administered on 09/06/16 04:56; Start 09/06/16 at 05:00; Stop 09/06/16 at 05:01; Status DC Albuterol/ Ipratropium (Duoneb) 3 ml 1X ONCE NEB Last administered on 04:30; Start 09/06/16 at 04:30; Stop 09/06/16 at 04:51; Status DC Albuterol Sulfate (Ventolin) 2.5 mg STK-MED ONCE .ROUTE ; Start 09/06/16 at 04:43 ; Stop 09/06/16 at 04:44; Status DC Info (Do NOT chart on this entry -- for MONITORING) 1 each PRN DAILY PRN MC SEE COMMENTS; Start 09/06/16 at 05:00; Stop 09/08/16 at 04:59 Sodium Chloride 1,000 ml @ 1,000 mls/hr 1X ONCE IV Last administered on 04:45; Start 09/06/16 at 05:30; Stop 09/06/16 at 06:29; Status DC Ondansetron HCl (Zofran) 4 mg PRN Q4HRS PRN IV NAUSEA/VOMITING; Start 09/06/16 at 06:15; Stop 09/07/16 at 06:14; Status DC Heparin Sodium/ Dextrose 500 ml @ 0 mls/hr CONT PRN IV SEE I/O RECORD Last administered on 09/06/16 09:07; Start 09/06/16 at 06:30; Stop 09/06/16 at 16:19; Status DC Heparin Sodium (Porcine) 5,000 unit 1X ONCE IV ; Start 09/06/16 at 06:30; Stop 09/06/16 at 16:19; Status DC Heparin Sodium (Porcine) 2,000 unit PRN Q6HRS PRN IV FOLLOW PROTOCOL GUIDELINES ; Start 09/06/16 at 06:30; Stop 09/06/16 at 16:19; Status DC Heparin Sodium (Porcine) 1,000 unit PRN Q6HRS PRN IV FOLLOW PROTOCOL GUIDELINES ; Start 09/06/16 at 06:30; Stop 09/06/16 at 16:19; Status DC Heparin Sodium (Porcine) 5,000 unit 1X ONCE IV Last administered on 09/06/16 09:10; Start 09/06/16 at 09:00; Stop 09/06/16 at 09:01; Status DC Magnesium Sulfate 50 ml @ 25 mls/hr 1X ONCE IV Last administered on 09/06/16 10:45; Start 09/06/16 at 10:30; Stop 09/06/16 at 12:29; Status DC Oxycodone HCl (Roxicodone) 5 mg PRN Q6HRS PRN PO PAIN Last administered on 09/07 08:23; Start 09/06/16 at 12:00 Senna/Docusate Sodium (Senna Plus) 1 tab BID PO Last administered on 09/07/16 08:26; Start 09/06/16 at 21:00 Doxycycline Hyclate (Vibra-Tab) 100 mg BID PO Last administered on 09/07/16 08 :24; Start 09/06/16 at 21:00 Rivaroxaban (Xarelto) 15 mg BIDWMEALS PO Last administered on 09/07/16 08:23; Start 09/06/16 at 17:00 Sodium Chloride 1,000 ml @ 100 mls/hr Q10H IV Last administered on 09/07/16 01:06; Start 09/06/16 at 16:30 Nicotine (Nicoderm Cq 14mg) 1 patch DAILY TD Last administered on 09/07/16 08: 24; Start 09/06/16 at 17:45 Active Scripts Active Reported Oxycodone Hcl 5 Mg Tablet 1 Tab PO PRN Q6HRS PRN Vibramycin (Doxycycline Hyclate) 100 Mg Capsule 1 Cap PO BID 10 Days Senokot-S Tablet (Sennosides/Docusate Sodium) 1 Each Tablet 1 Tab PO BID Vitals/I & O Vital Sign - Last 24 Hours 09/06/16 09/06/16 09/06/16 09/06/16 11:15 15:26 18:28 20:30 Temp 98.7 98.9 Pulse 103 105 Resp 20 20 B/P (MAP) 154/86 (108) 153/73 (99) Pulse Ox 4 92 O2 Delivery Nasal Cannula Room Air Room Air Room Air O2 Flow Rate 1.0 09/06/16 09/07/16 09/07/16 09/07/16 22:56 01:00 01:05 01:06 Pulse 92 115 Resp 14 24 22 B/P (MAP) 168/82 (110) 138/89 (105) Pulse Ox 95 92 95 O2 Delivery Room Air Room Air Nasal Cannula Room Air O2 Flow Rate 2.0 09/07/16 09/07/16 09/07/16 02:06 05:01 07:45 Temp 97.6 Pulse 96 Resp 20 B/P (MAP) 118/85 (96) Pulse Ox 97 O2 Delivery Nasal Cannula Nasal Cannula Room Air O2 Flow Rate 2.0 Intake and Output 09/06/16 09/06/16 09/07/16 15:00 23:00 07:00 Intake Total 220 ml 559.31 ml 0 ml Balance 220 ml 559.31 ml 0 ml LEONEL FARMER APRN September 07, 2016 10:49
[2016-09-07 10:54] VITALS: BP 137/76
[2016-09-07] MEDS ORDERED: RIVA10TA PO (13:10)
--- NOTE | 2016-09-07 20:32 | DS ---
DATE OF DISCHARGE: 09/07/2016 HOSPITAL COURSE: The patient is a 35-year-old male patient who came to the Emergency Room complaining of chest pain. He was just discharged from [facility] after a suicidal attempt and surgical repair of his left chest and in the Emergency Room he complained of chest pressure and sharp pain and discomfort that is worse with deep breath. He denied any cough, phlegm or hemoptysis. He did have a CT scan of the chest with PE protocol, which showed he has pulmonary emboli with filling defects in the pulmonary artery of his left upper lobe. He was also noted to have mildly elevated CK and mild rhabdomyolysis and was admitted, started on heparin and IV fluid and he actually did very well. We did switch him to Xarelto 15 mg twice a day for 3 weeks and then subsequently to go on 20 mg once a day. CK came down nicely, although not yet completely from almost 3000 to 980. PHYSICAL EXAMINATION: GENERAL: When I examined him this afternoon, he looked well and was clearly in no apparent respiratory distress, slightly pale, but no jaundice, cyanosis, or thyromegaly. No jugular venous distention. No limb edema. VITAL SIGNS: His heart rate was 106, blood pressure 137/76, temperature was 98.4, respiratory rate 20 and oxygen saturation was 94% on room air. The rest of clinical examination is unremarkable, has not really changed. His left chest is covered with dressing with the strict order from the surgical team not to change the dressing. LABORATORY DATA: His lab work this morning showed a serum sodium 141, potassium 3.9, chloride 106, bicarbonate 28, anion gap of 7, BUN 8, creatinine 1, estimated GFR was 85 mL per minute. His glucose was 92, calcium was 7.8. Total bilirubin, AST, ALT, alkaline phosphatase were normal. CK is down at 980. His total protein was 5.9, albumin was 2.6. His TSH was 1.72. White cell count 7900, hemoglobin 8.5, hematocrit 24.7, MCV 92 and platelet count of 186,000. Sedimentation rate was high at 38. C-reactive protein was 81 mg/dL. DISCHARGE MEDICATIONS: The patient was discharged home to continue on rivaroxaban, Xarelto 15 mg twice a day for 3 weeks and then 20 mg once a day. He was given a month's supply with 5 refills. He should continue on doxycycline 100 mg twice a day for 10 days, Oxycodone 5 mg every 6 hours for pain and Senna-S 1 tablet twice a day. FINAL DISCHARGE DIAGNOSES: 1. Unprovoked pulmonary embolism. 2. Bronchial asthma. 3. Suicidal attempt slashing his left chest that was surgically repaired at [facility]. CANDE MCKINNEY MD DR: NILES/valdo JOB#: [id number] / [id number]
== END 2016-09-07 13:35 | disposition home or self-care (01) | DRG 176 ==
LOC: ER 03:46 → 1 SOUTH 06:15
PROVIDERS: ADMIT Internal Medicine; ATTEND Internal Medicine
DX: I26.99 Other pulmonary embolism without acute cor pulmonale (principal); M62.82 Rhabdomyolysis; F17.210 Nicotine dependence, cigarettes, uncomplicated; J45.909 Unspecified asthma, uncomplicated; R07.89 Other chest pain; T14.91 Suicide attempt; Z82.49 Family history of ischemic heart disease and other diseases of the circulatory system; Z82.5 Family history of asthma and other chronic lower respiratory diseases; Z83.3 Family history of diabetes mellitus; Z88.7 Allergy status to serum and vaccine; Z90.49 Acquired absence of other specified parts of digestive tract
CPT/HCPCS: 36415; 71010; 71275; 80048; 80053; 80076; 81001; 82550; 82553; 83690; 83735; 83880; 84443; 84484; 85027; 85610; 85651; 85730; 86140; 93005; 93306; 94640; 96361; 96374; 99406; G0481; J1644; J2270; J2405; J3475; J7620; Q9967; 99285-25; J7030

== ENCOUNTER 2017-09-20 11:09 | Emergency (ER) | payer OTHER ==
[~2017-09-20] VITALS: Ht 157.5 cm; Wt 67.1 kg
[~2017-09-20 11:09] MED LIST: DOXY100C PO; OXYC5TAB95 PO; RIVA10TA PO; SENN-37 PO
[2017-09-20] MEDS ORDERED: IV NORMAL SALINE 1,000ML 1,000 ML IV ONE (11:30)
[2017-09-20 11:49] LABS: BASO # 0.1 x10^3/uL (0.0-0.2); BASO % 1 % (0-3); EOS # 0.2 x10^3/uL (0.0-0.7); EOS % 4 % (0-3); HEMOGLOBIN 15.8 g/dL (13.0-17.5); LYMPH # 1.7 x10^3/uL (1.0-4.8); LYMPH % 31 % (24-48); MEAN CORPUSCULAR HEMOGLOBIN 32 pg (25-35); MEAN CORPUSCULAR HGB CONC 34 g/dL (31-37); MEAN CORPUSCULAR VOLUME 93 fL (79-100); MONO # 0.4 x10^3/uL (0.0-1.1); MONO % 8 % (0-9); NEUT % 56 % (31-73); PLATELET COUNT 253 x10^3/uL (140-400); RED BLOOD COUNT 4.94 x10^6/uL (4.30-5.70); RED CELL DISTRIBUTION WIDTH 13.9 % (11.5-14.5); WHITE BLOOD COUNT 5.4 x10^3/uL (4.0-11.0)
[2017-09-20 11:58] LABS: ALBUMIN 3.6 g/dL (3.4-5.0); ALK PHOS 81 U/L (46-116); ALT (SGPT) 34 U/L (16-63); ANION GAP 9 (6-14); AST (SGOT) 18 U/L (15-37); BLOOD UREA NITROGEN 19 mg/dL (8-26); CALCIUM 8.5 mg/dL (8.5-10.1); CARBON DIOXIDE 26 mmol/L (21-32); CHLORIDE 106 mmol/L (98-107); CREATININE 1.6 mg/dL (0.7-1.3); DIRECT BILIRUBIN < 0.1 mg/dL (0.0-0.2); GFR 48.9; GLUCOSE 109 mg/dL (70-99); POTASSIUM 4.2 mmol/L (3.5-5.1); SODIUM 141 mmol/L (136-145); TOTAL BILIRUBIN 0.2 mg/dL (0.2-1.0)
[2017-09-20] MEDS ORDERED: DEXAMETHASONE SOD PHOS 10 MG/ML VIAL IV ONE (12:00)
[2017-09-20] MEDS ORDERED: METOCLOPRAMIDE HCL 10 MG/2 ML VIAL. IV ONE (12:00)
[2017-09-20] MEDS ORDERED: diphenhydrAMINE 50 MG/ML VIAL IVP ONE (12:00)
--- NOTE | 2017-09-20 12:20 | RAD ---
PQRS Compliance Statement: One or more of the following individualized dose reduction techniques were utilized for this examination: 1. Automated exposure control 2. Adjustment of the mA and/or kV according to patient size 3. Use of iterative reconstruction technique CT HEAD WITHOUT CONTRAST History: HEADACHE WITH LIGHT SENSITIVITY TIMES 3 DAYS Comparison: None. Procedure: Axial images are obtained of the head from the skull base through the vertex without IV contrast. Findings: There are 2 7 mm indeterminate hypodensities in the left cerebellum. The ventricles and sulci are normal for the patient's age. No mass-effect, midline shift, hemorrhage, or extra-axial fluid collection is identified. Basilar cisterns are patent. Bone windows demonstrate no acute calvarial abnormality. Mucosal thickening bilateral ethmoid sinuses. The other visualized paranasal sinuses are clear. Mastoid air cells are well aerated. IMPRESSION: There are 2 subcentimeter hypodensities in the left cerebellum. Considerations include age-indeterminate infarcts versus nonspecific edema versus subacute trauma. Recommend further evaluation with MR brain. Electronically signed by: Tae Rodriguez MD (09/20/2017 12:16 PM) [id number]
--- NOTE | 2017-09-20 12:29 | PHYS DOC ---
Past History Past Medical History: Asthma, Bronchitis Past Surgical History: Appendectomy, Other Alcohol Use: Occasionally Drug Use: Marijuana Adult General Chief Complaint Chief Complaint: HEADACHE HPI HPI 36-year-old male presenting to the emergency department today with a headache. His headache was slow in onset and not sudden in onset. He is tried Aleve and ibuprofen home with mild relief. He reports pain as moderate to severe. The headache is a sharp shooting pain nonradiating intermittent. He denies any neck stiffness or fevers. He denies any new rashes. He denies any recent tick bites. He denies a family history of brain aneurysms or subarachnoid hemorrhage. Review of systems is negative for chest pain shortness of breath abdominal pain nausea vomiting fevers or chills. All other review of systems is negative unless otherwise noted in history of present illness. ED course: 36-year-old male presenting the emergency department with a headache. On arrival the patient is afebrile and well-appearing with mild tachycardia likely secondary to headache. On examination he is well-appearing and nontoxic. No nuchal rigidity. Lungs are clear bilaterally. Normal neurologic exam. Abdomen is soft and nontender. IV established. Headache medications ordered. Head CT and blood work obtained which show mildly increased Cr without recent for comparison (1 year ago was around 1, now 1.6). Otherwise bloodwork was unremarkable. On reexamination, the patient is feeling better. head ct shows 2 subcentimeter hypodensities in the cerebellum. I discussed the case with our neurologist Dr. Franco. I instructed him that the patient is neurologically intact without any recent head injury and read the radiology report to him asking him for his position consultation and further consultation on the care of the patient. He recommends to have the patient follow-up with him in clinic tomorrow or the next day. On reexamination the patient he continues to be neurologically intact. He will follow-up with our neurologist tomorrow for probable MRI and further referral for evaluation treatment and care. [id number] discharge instructions and return precautions were given. Patient's questions were answered to their satisfaction. Patient is comfortable with plan. Review of Systems Review of Systems SEE ABOVE. Current Medications Current Medications Current Medications Medications (Trade) Dose Ordered Sig/Harry Start Time Stop Time Status Last Admin Dose Admin Dexamethasone Sodium Phosphate (Decadron) 10 mg 1X ONCE 09/20/17 12:00 09/20/17 12:01 DC 09/20/17 11:44 10 MG Diphenhydramine HCl (Benadryl) 25 mg 1X ONCE 09/20/17 12:00 09/20/17 12:01 DC 09/20/17 11:46 25 MG Metoclopramide HCl (Reglan Vial) 10 mg 1X ONCE 09/20/17 12:00 09/20/17 12:01 DC 09/20/17 11:45 10 MG Sodium Chloride 1,000 ml @ 1,000 mls/hr 1X ONCE 09/20/17 11:30 09/20/17 12:29 09/20/17 11:42 1,000 MLS/HR Allergies Allergies Allergies Coded Allergies Type Severity Reaction Last Updated Verified procaine Allergy Unknown 09/06/16 Yes Physical Exam Physical Exam SEE ABOVE Constitutional: Well developed, well nourished, no acute distress, non-toxic appearance. [] HENT: Normocephalic, atraumatic, bilateral external ears normal, oropharynx moist, no oral exudates, nose normal. [] Eyes: PERRLA, EOMI, conjunctiva normal, no discharge. [] Neck: Normal range of motion, no tenderness, supple, no stridor. [] Cardiovascular:Heart rate regular rhythm, no murmur [] Lungs & Thorax: Bilateral breath sounds clear to auscultation [] Abdomen: Bowel sounds normal, soft, no tenderness, no masses, no pulsatile masses. [] Skin: Warm, dry, no erythema, no rash. [] Back: No tenderness, no CVA tenderness. [] Extremities: No tenderness, no cyanosis, no clubbing, ROM intact, no edema. [] Neurologic: Mental status: Awake oriented and alert x3 Cranial nerves: Extraocular movements intact, eyebrows cynthia bilaterally, smile symmetric, uvula elevation nl, shoulder shrug intact bilaterally, tongue protrusion normal DTRs: 2+ Sensation: equal and normal in all extremities Strength: 5/5 in upper and lower extremities bilaterally Psychologic: Affect normal, judgement normal, mood normal. [] Current Patient Data Vital Signs Vital Signs Date Time Temp Pulse Resp B/P (MAP) Pulse Ox O2 Delivery O2 Flow Rate FiO2 09/20/17 11:45 98 16 124/84 (97) 97 Room Air 09/20/17 11:15 98.5 Lab Results Laboratory Tests Test 09/20/17 11:32 White Blood Count 5.4 x10^3/uL (4.0-11.0) Red Blood Count 4.94 x10^6/uL (4.30-5.70) Hemoglobin 15.8 g/dL (13.0-17.5) Hematocrit 46.0 % (39.0-53.0) Mean Corpuscular Volume 93 fL (79-100) Mean Corpuscular Hemoglobin 32 pg (25-35) Mean Corpuscular Hemoglobin Concent 34 g/dL (31-37) Red Cell Distribution Width 13.9 % (11.5-14.5) Platelet Count 253 x10^3/uL (140-400) Neutrophils (%) (Auto) 56 % (31-73) Lymphocytes (%) (Auto) 31 % (24-48) Monocytes (%) (Auto) 8 % (0-9) Eosinophils (%) (Auto) 4 % (0-3) H Basophils (%) (Auto) 1 % (0-3) Neutrophils # (Auto) 3.0 x10^3uL (1.8-7.7) Lymphocytes # (Auto) 1.7 x10^3/uL (1.0-4.8) Monocytes # (Auto) 0.4 x10^3/uL (0.0-1.1) Eosinophils # (Auto) 0.2 x10^3/uL (0.0-0.7) Basophils # (Auto) 0.1 x10^3/uL (0.0-0.2) Sodium Level 141 mmol/L (136-145) Potassium Level 4.2 mmol/L (3.5-5.1) Chloride Level 106 mmol/L (98-107) Carbon Dioxide Level 26 mmol/L (21-32) Anion Gap 9 (6-14) Blood Urea Nitrogen 19 mg/dL (8-26) Creatinine 1.6 mg/dL (0.7-1.3) H Estimated GFR (Cockcroft-Gault) 48.9 Glucose Level 109 mg/dL (70-99) H Calcium Level 8.5 mg/dL (8.5-10.1) Total Bilirubin 0.2 mg/dL (0.2-1.0) Direct Bilirubin < 0.1 mg/dL (0.0-0.2) Aspartate Amino Transferase (AST) 18 U/L (15-37) Alanine Aminotransferase (ALT) 34 U/L (16-63) Alkaline Phosphatase 81 U/L (46-116) Total Protein 7.0 g/dL (6.4-8.2) Albumin 3.6 g/dL (3.4-5.0) EKG EKG [] Radiology/Procedures Radiology/Procedures [] Course & Med Decision Making Course & Med Decision Making Pertinent Labs and Imaging studies reviewed. (See chart for details) [] Dragon Disclaimer Dragon Disclaimer This electronic medical record was generated, in whole or in part, using a voice recognition dictation system. Departure Departure: Impression: Primary Impression: Headache Additional Impression: Complicated headache syndromes Disposition: HOME, SELF-CARE Condition: STABLE Referrals: PCP,NO (PCP) DIANA DOUGLAS MD, FARIZ MD in 1-2 days. Patient Instructions: General Headache Without Cause Additional Instructions: Thank you for allowing us to participate in your care today. Followup with Dr. Franco tomorrow or the next day for ct head results and possible MRI. Call your Primary Doctor tomorrow and inform them of your visit today. If you do not have a primary care provider you can ask for a list of our primary care providers. Return to the emergency department you have any new or concerning findings. This should be evaluated by the primary care physician and any necessary consulting services for continued management within a few days after discharge. Return to emergency room if you have any new or concerning symptoms including but not limited to fever, chills, nausea, vomiting, intractable pain, any new rashes, chest pain, shortness of air, uncontrolled bleeding, difficulty breathing, and/or vision loss. If at any time, you are having difficulty getting into your primary care doctor or a specialist, return to the emergency department. Problem Qualifiers EVELYN RICARDO MD September 20, 2017 12:29
[2017-09-20 12:50] VITALS: BP 127/53
== END 2017-09-20 12:56 | disposition home or self-care (01) ==
LOC: ER 11:09
DX: G44.59 Other complicated headache syndrome (principal); J45.909 Unspecified asthma, uncomplicated; F12.10 Cannabis abuse, uncomplicated; Z88.4 Allergy status to anesthetic agent
CPT/HCPCS: 36415; 70450; 80048; 80076; 85025; 96374; 96375; 99285; J1100; J1200; J2765; J7030

== ENCOUNTER 2019-01-08 17:34 | Emergency (ER) | payer SELFPAY ==
[~2019-01-08] VITALS: Ht 157.5 cm; Wt 66.2 kg
[~2019-01-08 17:34] MED LIST changes: +OXYC5TAB4 PO; -OXYC5TAB95 PO
[2019-01-08] MEDS ORDERED: IV NORMAL SALINE 1,000ML 1,000 ML IV ONE (18:15)
[2019-01-08] MEDS ORDERED: KETOROLAC 30 MG/ML VIAL. IV ONE (18:30)
[2019-01-08] MEDS ORDERED: BUTORPHANOL 2 MG VIAL. IV ONE (18:30)
[2019-01-08] MEDS ORDERED: DEXAMETHASONE SOD PHOS 10 MG/ML VIAL IV ONE (18:30)
[2019-01-08] MEDS ORDERED: METOCLOPRAMIDE HCL 10 MG/2 ML VIAL. IV ONE (18:30)
[2019-01-08] MEDS ORDERED: SUMAtriptan SUCC 6 MG/0.5 ML VIAL SQ ONE (18:30)
[2019-01-08] MEDS ORDERED: diphenhydrAMINE 50 MG/ML VIAL IVP ONE (18:30)
--- NOTE | 2019-01-08 18:59 | PHYS DOC ---
Past History Past Medical History: Asthma, Bronchitis, Depression, Diabetes Past Surgical History: Appendectomy, Other Additional Past Surgical Histo: left wrist Alcohol Use: None Drug Use: None, Marijuana Adult General Chief Complaint Chief Complaint: HEADACHE HPI HPI Patient is a 38-year-old male presents with complaint of headache for the last 4 days. Patient states that he has a history of migraine headaches and this once different from his typical migraines, stating that this time his headache is throughout his entire head. He reports photosensitivity. He rates headache is severe and states that he has been nauseated for the majority of the time but denies having had any vomiting. He states that pain is worsened with noise and with walking or bending over. He does indicate that he felt like he was given a pass out at work a couple of days ago. He states that nothing is helping with the headache.[] Review of Systems Review of Systems Constitutional: Denies fever or chills [] Eyes: Denies change in visual acuity, redness, or eye pain [] Respiratory: Denies cough or shortness of breath [] Cardiovascular: No additional information not addressed in HPI [] Neurologic: Complains of headache without focal weakness or sensory changes [] All other systems were reviewed and found to be within normal limits, except as documented in this note. Current Medications Current Medications Current Medications Medications (Trade) Dose Ordered Sig/[facility] Start Time Stop Time Status Last Admin Dose Admin Butorphanol Tartrate (Stadol) 1 mg 1X ONCE 01/08/19 18:30 01/08/19 18:31 DC 01/08/19 18:42 1 MG Dexamethasone Sodium Phosphate (Decadron) 10 mg 1X ONCE 01/08/19 18:30 01/08/19 18:31 DC 01/08/19 18:42 10 MG Diphenhydramine HCl (Benadryl) 25 mg 1X ONCE 01/08/19 18:30 01/08/19 18:31 DC 01/08/19 18:42 25 MG Ketorolac Tromethamine (Toradol 30mg Vial) 30 mg 1X ONCE 01/08/19 18:30 01/08/19 18:31 DC 01/08/19 18:42 30 MG Metoclopramide HCl (Reglan Vial) 10 mg 1X ONCE 01/08/19 18:30 01/08/19 18:31 DC 9/10/19 18:42 10 MG Sodium Chloride 1,000 ml @ 1,000 mls/hr 1X ONCE 01/08/19 18:15 01/08/19 19:14 01/08/19 18:42 1,000 MLS/HR Sumatriptan Succinate (Imitrex) 6 mg 1X ONCE 01/08/19 18:30 01/08/19 18:31 DC 01/08/19 18:42 6 MG Allergies Allergies Allergies Coded Allergies Type Severity Reaction Last Updated Verified procaine Allergy Unknown 09/06/16 Yes Physical Exam Physical Exam Constitutional: Well developed, well nourished, no acute distress, non-toxic appearance. [] HENT: Normocephalic, atraumatic, bilateral external ears normal, oropharynx moist, no oral exudates, nose normal. [] Eyes: PERRLA, EOMI, conjunctiva normal, no discharge. [] Neck: Normal range of motion, no tenderness, supple, no stridor. [] Cardiovascular: Regular rate and rhythm[] Lungs & Thorax: Bilateral breath sounds clear to auscultation [] Abdomen: Bowel sounds normal, soft. [] Skin: Warm, dry, no erythema, no rash. [] Extremities: No tenderness, no cyanosis, no clubbing, ROM intact, no edema. [] Neurologic: Alert and oriented X 3, no focal deficits noted. [] Current Patient Data Vital Signs Vital Signs Date Time Temp Pulse Resp B/P (MAP) Pulse Ox O2 Delivery O2 Flow Rate FiO2 01/08/19 17:41 98.4 97 18 96 Room Air EKG EKG [] Radiology/Procedures Radiology/Procedures [] Impressions: PROCEDURE: CT HEAD WO CONTRAST Exam: CT head INDICATION: Severe headaches for 3 or 4 days TECHNIQUE: Sequential axial images through the head were obtained without the administration of IV contrast. Comparisons: 09/20/2017 FINDINGS: No focal parenchymal lesion or hemorrhage is identified. There is no midline shift or sulcal effacement. 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 No acute vascular territory infarction is identified. Quinn-white distinction is preserved. The ventricular system is within normal limits without compression hydrocephalus. The basal cisterns are well maintained. The visualized portions of the paranasal sinuses and mastoid air cells are well-pneumatized. No acute fractures. IMPRESSION: No acute intracranial abnormality. Exposure: One or more of the following in the visualized dose reduction techniques were utilized for this examination: 1. Automated exposure control 2. Adjustment of the MA and/or KV according to patient size Use of iterative of reconstructive technique Electronically signed by: Nicole Crenshaw MD (01/08/2019 7:05 PM) [facility] DICTATED AND SIGNED BY: NICOLE CRENSHAW MD DATE: 01/08/19 190 Course & Med Decision Making Course & Med Decision Making Pertinent Labs and Imaging studies reviewed. (See chart for details) [] Dragon Disclaimer Dragon Disclaimer This electronic medical record was generated, in whole or in part, using a voice recognition dictation system. Departure Departure: Impression: Primary Impression: Migraine headache Disposition: HOME, SELF-CARE Condition: STABLE Referrals: PCP,NO (PCP) Patient Instructions: Form - Excuse from Work, School, or Physical Activity, Migraine Headache Scripts Butalbital/Aspirin/Caffeine (FIORINAL 50-325-40 MG CAPSULE) 1 Each Capsule 1 EACH PO Q6HRS PRN for HEADACHE, #20 CAP Prov: JACLYN LYON Jr. DO 01/08/19 Problem Qualifiers Primary Impression: Migraine headache Migraine type: unspecified Status migrainosus presence: without status migrainosus Intractability: not intractable Qualified Codes: G43.909 - Migraine, unspecified, not intractable, without status migrainosus JACLYN LYON Jr. DO Jan 08, 2019 18:59
--- NOTE | 2019-01-08 19:08 | RAD ---
Exam: CT head INDICATION: Severe headaches for 3 or 4 days TECHNIQUE: Sequential axial images through the head were obtained without the administration of IV contrast. Comparisons: 09/20/2017 FINDINGS: No focal parenchymal lesion or hemorrhage is identified. There is no midline shift or sulcal effacement. 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 No acute vascular territory infarction is identified. Quinn-white distinction is preserved. The ventricular system is within normal limits without compression hydrocephalus. The basal cisterns are well maintained. The visualized portions of the paranasal sinuses and mastoid air cells are well-pneumatized. No acute fractures. IMPRESSION: No acute intracranial abnormality. Exposure: One or more of the following in the visualized dose reduction techniques were utilized for this examination: 1. Automated exposure control 2. Adjustment of the MA and/or KV according to patient size Use of iterative of reconstructive technique Electronically signed by: Beatrice Carter MD (01/08/2019 7:05 PM) [facility]
[2019-01-08 20:09] VITALS: BP 109/74
[2019-01-08] MEDS ORDERED: BUTA1CAP31 PO (20:42)
== END 2019-01-08 20:55 | disposition home or self-care (01) ==
LOC: ER 17:34
DX: G43.909 Migraine, unspecified, not intractable, without status migrainosus (principal); J45.909 Unspecified asthma, uncomplicated; E11.9 Type 2 diabetes mellitus without complications; Z90.89 Acquired absence of other organs; Z88.4 Allergy status to anesthetic agent
CPT/HCPCS: 70450; 96372; 96374; 96375; 99284; J0595; J1100; J1200; J1885; J2765; J3030; J7030

== ENCOUNTER 2019-05-31 22:14 | Emergency (ER) | payer SELFPAY ==
[~2019-05-31] VITALS: Ht 157.5 cm; Wt 70.1 kg
[~2019-05-31 22:14] MED LIST changes: +BUTA1CAP31 PO
[2019-05-31 22:30] VITALS: BP 130/99
[2019-05-31] MEDS ORDERED: HYDROcodone/APAP 5/325MG 1 TAB TABLET ONE (22:40)
[2019-05-31] MEDS ORDERED: ONDANSETRON ODT 4 MG TAB.RAPDIS PO ONE (23:00)
[2019-05-31] MEDS ORDERED: DEXAMETHASONE 4 MG TABLET PO ONE (23:00)
[2019-05-31] MEDS ORDERED: ALBU2.5V8 IH (23:20)
[2019-05-31] MEDS ORDERED: PRED20TA PO (23:20)
[2019-05-31] MEDS ORDERED: ONDA4TAB12 PO (23:20)
--- NOTE | 2019-05-31 23:21 | PHYS DOC ---
Past History Past Medical History: Asthma, Bronchitis, Depression, Diabetes Past Surgical History: Appendectomy, Other Additional Past Surgical Histo: left wrist Smoking: Cigarettes Alcohol Use: None Drug Use: None, Marijuana Adult General Chief Complaint Chief Complaint: FLU SYMPTOM HPI HPI 38-year-old male presents with 2 day history of URI-type symptoms including nasal congestion, cough, and body aches. Denies known sick contacts. Patient does report some associated nausea and vomiting. Reports not feeling well and his girlfriend "made him come up here ". Denies trauma. Denies fever. Review of Systems Review of Systems Constitutional: Denies fever or chills; reports body aches and malaise Eyes: Denies redness or eye pain HENT: Reports nasal congestion and sore throat Respiratory: Reports cough; denies shortness of breath Cardiovascular: Denies chest pain or palpitations GI: Denies abdominal pain; reports nausea and vomiting : Denies dysuria or hematuria Musculoskeletal: Denies back pain or joint pain Integument: Denies rash or skin lesions Neurologic: Denies headache, focal weakness or sensory changes Complete systems were reviewed and found to be within normal limits, except as documented in this note. Current Medications Current Medications Current Medications Medications (Trade) Dose Ordered Sig/Harry Start Time Stop Time Status Last Admin Dose Admin Acetaminophen/ Hydrocodone Bitart (Lortab 5/325) 1 tab STK-MED ONCE 05/31/19 22:40 05/31/19 22:41 DC Dexamethasone (Decadron) 10 mg 1X ONCE 05/31/19 23:00 05/31/19 23:01 DC Ondansetron HCl (Zofran Odt) 4 mg 1X ONCE 05/31/19 23:00 05/31/19 23:01 DC Allergies Allergies Allergies Coded Allergies Type Severity Reaction Last Updated Verified procaine Allergy Unknown 09/06/16 Yes Physical Exam Physical Exam Constitutional: Well developed, well nourished, uncomfortable, non-toxic appearance HENT: Normocephalic, atraumatic, oropharynx moist, pharynx erythematous consistent for postnasal drip, no tonsillar exudate, TMs clear bilaterally Eyes: Conjunctiva normal, no discharge Neck: Normal range of motion, no tenderness, supple, no meningeal signs Cardiovascular: Heart rate normal, regular rhythm Lungs & Thorax: Bilateral breath sounds equal, scattered wheezing Abdomen: Soft, no tenderness, no guarding/rebound tenderness/distention Skin: Warm, dry, no erythema, no rash Extremities: No tenderness, ROM intact Neurologic: Alert and oriented X 3, no focal deficits noted Psychologic: Affect normal, judgement normal EKG EKG [] Radiology/Procedures Radiology/Procedures [] Course & Med Decision Making Course & Med Decision Making Pertinent Lab studies reviewed. (See chart for details) Patient presents with URI type symptoms with associated nausea and vomiting. Abdomen non-peritoneal. Patient currently afebrile. Symptomatic treatment provided with oral steroid and Zofran ODT. Rapid influenza negative. Likely viral in nature. Patient stable for discharge with outpatient follow-up with PCP. Discussed findings and plan with patient, who acknowledges understanding and agreement. Kenzie Disclaimer Kenzie Disclaimer This electronic medical record was generated, in whole or in part, using a voice recognition dictation system. Departure Departure: Impression: Primary Impression: Bronchitis Additional Impression: Nausea & vomiting Disposition: 01 HOME, SELF-CARE Condition: STABLE Referrals: PCP,VITALIY (PCP) Patient Instructions: Acute Bronchitis, [id number], Nausea and Vomiting, [id number] Scripts Albuterol Sulfate (PROAIR HFA INHALER) 8.5 Gm Hfa.aer.ad 2 PUFF IH PRN Q4-6HRS PRN for wheezing, #1 INHALER 0 Refills Prov: RODOLFO MOORE DO 05/31/19 Ondansetron (ONDANSETRON ODT) 4 Mg Tab.rapdis 1 TAB PO PRN Q6-8HRS PRN for NAUSEA, #16 TAB Prov: RODOLFO MOORE DO 05/31/19 Prednisone (PREDNISONE) 20 Mg Tablet 2 TAB PO DAILY for Bronchitis, #8 TAB Start this prescription tomorrow, 06/01/2019 Prov: RODOLFO MOORE DO 05/31/19 Problem Qualifiers Additional Impression: Nausea & vomiting Vomiting type: unspecified Vomiting Intractability: non-intractable Qualified Codes: R11.2 - Nausea with vomiting, unspecified RODOLFO MOORE DO May 31, 2019 23:20
[2019-05-31 23:30] LABS: INFLUENZA A PATIENT NEGATIVE (NEGATIVE); INFLUENZA B PATIENT NEGATIVE (NEGATIVE)
== END 2019-05-31 23:45 | disposition home or self-care (01) ==
LOC: ER 22:14
DX: J45.909 Unspecified asthma, uncomplicated (principal); R11.2 Nausea with vomiting, unspecified; E11.9 Type 2 diabetes mellitus without complications; F17.210 Nicotine dependence, cigarettes, uncomplicated; Z88.4 Allergy status to anesthetic agent
CPT/HCPCS: 87804; 99284; J8540; Q0162

== ENCOUNTER 2020-07-22 19:52 | Emergency (ER) | payer SELFPAY ==
[~2020-07-22] VITALS: Ht 157.5 cm; Wt 70.1 kg
[~2020-07-22 19:52] MED LIST changes: +ALBU2.5V8 IH; +ONDA4TAB12 PO; +PRED20TA PO
--- NOTE | 2020-07-22 19:55 | PHYS DOC ---
Past History Past Medical History: Asthma, Bronchitis, Depression, Diabetes Past Surgical History: Appendectomy, Other Additional Past Surgical Histo: left wrist Smoking: Cigarettes Alcohol Use: None Drug Use: None, Marijuana General Adult HPI: HPI: ".. I got one my migraines.. it been off and on the last three days... I took Tylenol and Ibuprofen..." Patient is a 39 year old male who presents with above hx and complaints of a migraine headache. Patient complains of photophobia, visual changes, nausea, malaise. Patient has had migraines all his life. Usually respond to Tylenol or ibuprofen. Patient denies any head trauma. No recent travel. No specific ill contacts. Does have a significant history for bronchial asthma, depression suicidal ideation, diabetes, chest pain, rhabdomyolysis, pulmonary embolism, pleurisy and migraines. Patient has past history of surgical repair left chest wall in a suicide attempt and appendectomy. Patient does smoke and use marijuana. The patient denies headache more severe than his usual migraine but similar characteristics. No history of immunosuppression. Review of Systems: Review of Systems: Constitutional: Denies fever or chills Eyes: Denies change in visual acuity HENT: Denies nasal congestion or sore throat Respiratory: Denies cough or shortness of breath Cardiovascular: Denies chest pain or edema GI: Denies abdominal pain, nausea, vomiting, bloody stools or diarrhea : Denies dysuria Musculoskeletal: Denies back pain or joint pain Integument: Denies rash Neurologic: Complains of headache,. Denies focal weakness or sensory changes Endocrine: Denies polyuria or polydipsia Lymphatic: Denies swollen glands Psychiatric: Denies depression or anxiety Family History: Family History: Family history of coronary artery disease and bronchial asthma father. Mother of diabetes and cancer. Current Medications: Current Meds: See nursing for home meds Allergies: Allergies: Allergies Coded Allergies Type Severity Reaction Last Updated Verified procaine Allergy Intermediate Unknown 06/01/19 Yes Physical Exam: PE: Constitutional: Moderate acute distress, non-toxic appearance. [] HENT: Normocephalic, atraumatic, bilateral external ears normal, oropharynx moist, no oral exudates, nose normal. [] Eyes: PERRLA, EOMI, conjunctiva normal, no discharge. Glasses. No field defect determined. Neck: Normal range of motion, no tenderness, supple, no stridor. [] Cardiovascular:Heart rate regular rhythm, no murmur [] Lungs & Thorax: Bilateral breath sounds equal apex with scattered wheezes auscultation [] old surgical scar. Abdomen: Bowel sounds normal, soft, no tenderness, no masses, no pulsatile masses. [] Skin: Warm, dry, no erythema, no rash. [] Back: No tenderness, no CVA tenderness. [] Extremities: No tenderness, no cyanosis, no clubbing, ROM intact, no edema. [] Neurologic: Alert and oriented X 3, normal motor function, normal sensory function, no focal deficits noted. [] DTRs +2 patella and brachial brachial. Has no drift. Amatory without problems. [place] equal. Right-hand dominant. Psychologic: Affect anxious judgement normal, mood normal. [] EKG: EKG: [] Radiology/Procedures: Radiology/Procedures: [][place] [address] IMAGING REPORT Signed PATIENT: ALLI CAST ACCOUNT: [id number] : 1980 LOCATION: ER AGE: 39 SEX: M EXAM STATUS: REG ER ORD. PHYSICIAN: ALLI WEISS MD REASON: Severe headahce, Hx intractable head ache PROCEDURE: CT HEAD WO CONTRAST Exam: CT head INDICATION: Severe headache TECHNIQUE: Sequential axial images through the head were obtained without the administration of IV contrast. Comparisons: 01/08/2019 FINDINGS: No focal parenchymal lesion or hemorrhage is identified. There is no midline shift or sulcal effacement. No acute vascular territory infarction is identified. Quinn-white distinction is preserved. The ventricular system is within normal limits without compression hydrocephalus. The basal cisterns are well maintained. The visualized portions of the paranasal sinuses and mastoid air cells are well- pneumatized. No acute fractures. IMPRESSION: No acute intracranial abnormality. Exposure: One or more of the following in the visualized dose reduction techniques were utilized for this examination: 1. Automated exposure control 2. Adjustment of the MA and/or KV according to patient size Use of iterative of reconstructive technique Electronically signed by: Nicole Crenshaw MD (07/22/2020 8:33 PM) [facility] DICTATED AND SIGNED BY: NICOLE CRENSHAW MD DATE: 07/22/202029 CC: ALLI WEISS MD; PCP,NO ~MTH0 0 Heart Score: C/O Chest Pain: N/A Risk Factors: Risk Factors: DM, Current or recent (<one month) smoker, HTN, HLP, family history of CAD, obesity. Risk Scores: Score 0 - 3: 2.5% MACE over next 6 weeks - Discharge Home Score 4 - 6: 20.3% MACE over next 6 weeks - Admit for Clinical Observation Score 7 - 10: 72.7% MACE over next 6 weeks - Early Invasive Strategies Course & Med Decision Making: Course & Med Decision Making Pertinent Labs and Imaging studies reviewed. (See chart for details) Patient reports complete resolution of headache at time of discharge. Patient offered spinal tap, risk and benefits discussed. Patient however declines at this time. Patient follow-up with primary care. Consider follow-up with neurology. Take Tylenol and ibuprofen for pain. May do a trial of Imitrex 100 mg to take at the beginning of the headache. Take no more than 200 mg in a 24-hour. Patient to follow-up primary care. Patient return if any concerns Impression 1. Migraine Head ache 2. Mild Elevation CRP 7.8 [] Dragon Disclaimer: Dragon Disclaimer: This electronic medical record was generated, in whole or in part, using a voice recognition dictation system. Departure Departure: Referrals: PCP,NO (PCP) Scripts Sumatriptan Succinate (IMITREX) 100 Mg Tablet 100 MG PO DAILY for migraine, #10 TAB Prov: ALLI WEISS MD 07/22/20 Dragon Disclaimer This chart was dictated in whole or in part using Voice Recognition software in a busy, high-work load, and often noisy Emergency Department environment. It may contain unintended and wholly unrecognized errors or omissions. ALLI WEISS MD Jul 22, 2020 19:55
[2020-07-22] MEDS ORDERED: PROCHLORPERAZINE 10 MG/2 ML VIAL. IV ONE (20:15)
[2020-07-22] MEDS ORDERED: diphenhydrAMINE 50 MG/ML VIAL IV ONE (20:15)
--- NOTE | 2020-07-22 20:35 | RAD ---
Exam: CT head INDICATION: Severe headache TECHNIQUE: Sequential axial images through the head were obtained without the administration of IV co ntrast. Comparisons: 01/08/2019 FINDINGS: No focal parenchymal lesion or hemorrhage is identified. There is no midline shift or sulcal effaceme nt. No acute vascular territory infarction is identified. Quinn-white distinction is preserved. The ventricular system is within normal limits without compression hydrocephalus. The basal cisterns are well maintained. The visualized portions of the paranasal sinuses and mastoid air cells are well-pneumatized. No acute fractures. IMPRESSION: No acute intracranial abnormality. Exposure: One or more of the following in the visualized dose reduction techniques were utilized for this examination: 1. Automated exposure control 2. Adjustment of the MA and/or KV according to patient size Use of iterative of reconstructive technique Electronically signed by: Beatrice Carter MD (07/22/2020 8:33 PM) [facility]
[2020-07-22 20:45] LABS: BASO # 0.1 x10^3/uL (0.0-0.2); BASO % 1 % (0-3); EOS # 0.3 x10^3/uL (0.0-0.7); EOS % 4 % (0-3); HEMATOCRIT 42.5 % (39.0-53.0); HEMOGLOBIN 14.2 g/dL (13.0-17.5); LYMPH # 2.8 x10^3/uL (1.0-4.8); LYMPH % 34 % (24-48); MEAN CORPUSCULAR HEMOGLOBIN 31 pg (25-35); MEAN CORPUSCULAR HGB CONC 33 g/dL (31-37); MEAN CORPUSCULAR VOLUME 91 fL (79-100); MONO # 0.7 x10^3/uL (0.0-1.1); MONO % 8 % (0-9); NEUT # 4.5 x10^3uL (1.8-7.7); NEUT % 54 % (31-73); PLATELET COUNT 287 x10^3/uL (140-400); RED BLOOD COUNT 4.65 x10^6/uL (4.30-5.70); WHITE BLOOD COUNT 8.3 x10^3/uL (4.0-11.0)
[2020-07-22 21:08] LABS: CALCIUM 9.4 mg/dL (8.5-10.1); CREATININE 1.3 mg/dL (0.7-1.3); GFR 61.1; POTASSIUM 3.8 mmol/L (3.5-5.1)
[2020-07-22 21:09] LABS: C REACTIVE PROTEIN 7.8 mg/L (0-3.3); MAGNESIUM 1.8 mg/dL (1.8-2.4)
[2020-07-22 21:17] VITALS: BP 126/71
[2020-07-22] MEDS ORDERED: SUMAtriptan SUCC 6 MG/0.5 ML VIAL SQ ONE (21:30)
[2020-07-22 22:05] LABS: BARBITURATES NEG (NEG); BENZODIAZEPINES NEG (NEG); CANNABINOIDS POS (NEG); COCAINE NEG (NEG); METHADONE NEG (NEG); OPIATES NEG (NEG); PHENCYCLIDINE NEG (NEG)
[2020-07-22] MEDS ORDERED: SUMA100T3 PO (22:10)
[2020-07-22 22:16] LABS: BACTERIA,URINE 0 /HPF (0-FEW); BILIRUBIN,URINE NEG (NEG); CLARITY,URINE CLEAR; COLOR,URINE COLORLESS; GLUCOSE,URINE NEG (NEG); NITRITE,URINE NEG (NEG); RBC,URINE RARE /HPF (0-2); UROBILINOGEN,URINE 0.2 mg/dL (0.2 mg/dL); WBC,URINE RARE /HPF (0-4)
[2020-07-22 22:18] LABS: AMPHETAMINE/METHAMPHETAMINE NEG (NEG)
== END 2020-07-22 22:20 | disposition home or self-care (01) ==
LOC: ER 19:52
DX: G43.909 Migraine, unspecified, not intractable, without status migrainosus (principal); R79.82 Elevated C-reactive protein (CRP); J45.909 Unspecified asthma, uncomplicated; F32.9 Major depressive disorder, single episode, unspecified; E11.9 Type 2 diabetes mellitus without complications; F17.210 Nicotine dependence, cigarettes, uncomplicated; Z88.4 Allergy status to anesthetic agent
CPT/HCPCS: 36415; 70450; 80048; 80307; 81001; 83735; 85025; 85610; 85730; 86140; 96372; 96374; 96375; 99284; J0780; J1200; J3030

== ENCOUNTER 2020-09-02 12:17 | Emergency (ER) | payer SELFPAY ==
[~2020-09-02] VITALS: Ht 157.5 cm; Wt 75.0 kg
[~2020-09-02 12:17] MED LIST changes: +SUMA100T3 PO
--- NOTE | 2020-09-02 12:39 | EKG ---
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
[2020-09-02] MEDS: ASPIRIN CHEWABLE 81 MG TABLET. PO ONE (12:46)
[2020-09-02] MEDS: IV NORMAL SALINE 1,000ML 1,000 ML IV SCH (12:47)
[2020-09-02] MEDS: 0.9 % SODIUM CHLORIDE 10 ML DISP.SYRIN. IV PRN (12:47)
[2020-09-02 12:49] LABS: BASO % 0 % (0-3); EOS % 0 % (0-3); HEMATOCRIT 39.1 % (39.0-53.0); LYMPH # 2.2 x10^3/uL (1.0-4.8); LYMPH % 12 % (24-48); MEAN CORPUSCULAR HEMOGLOBIN 31 pg (25-35); MEAN CORPUSCULAR HGB CONC 33 g/dL (31-37); MEAN CORPUSCULAR VOLUME 92 fL (79-100); MONO # 1.2 x10^3/uL (0.0-1.1); MONO % 6 % (0-9); NEUT # 15.1 x10^3uL (1.8-7.7); NEUT % 82 % (31-73); PLATELET COUNT 293 x10^3/uL (140-400); RED BLOOD COUNT 4.22 x10^6/uL (4.30-5.70); RED CELL DISTRIBUTION WIDTH 14.2 % (11.5-14.5); WHITE BLOOD COUNT 18.4 x10^3/uL (4.0-11.0)
[2020-09-02 12:59] LABS: CALCIUM 9.2 mg/dL (8.5-10.1); CREATININE 1.8 mg/dL (0.7-1.3); POTASSIUM 4.1 mmol/L (3.5-5.1)
--- NOTE | 2020-09-02 13:09 | PHYS DOC ---
Past History Past Medical History: Asthma, Other Additional Past Medical Histor: Blood clots in brain (RODOLFO MENSAH APRN) Past Surgical History: Appendectomy Additional Past Surgical Histo: ORIF wrist (RODOLFO MENSAH APRN) Smoking: Cigarettes Alcohol Use: Occasionally Drug Use: None, Marijuana (RODOLFO MENSAH APRN) Adult General Chief Complaint Chief Complaint: CHEST PAIN HPI HPI Patient is a 39-year-old male who presents emergency department with sudden onset of left-sided chest pain that radiates to his left shoulder and upper arm that started at approximately 1030 this morning while he was mowing his lawn. Patient denies any nausea vomiting diarrhea [place] abdominal pain or constipation. Patient states he is short of breath however he states he is often short of breath, patient states he noticed last night a runny nose with a nonproductive cough. Patient denies having any exposure to the COVID-19 virus and has not had a COVID-19 virus vaccine this year, denies having a flu vaccine in 2019. Patient states he has no allergies to medications, however had oral surgery yesterday with 3 teeth extractions, was prescribed oxycodone, 600 mg ibuprofen, and an oral antibiotic which she took this morning prior to his lawnmowing activity. Patient reports his chest pain was a 9/10 on a 1-10 pain scale, did not take any other medications or tried any other therapies to relieve pain and states it is now a 2/10 on a 1-10 pain scale. Patient reports a past medical history of blood clots in his brain and asthma. Patient states he is supposed to take a blood thinner, albuterol MDI, and other medications but quit taking his prescribed medications related to losing his job and losing his insurance last year. Patient states his primary care physician was Dr. Alan however has not seen Dr. Alan since losing his insurance. Patient denies any other physical complaints or physical concerns. Patient states he is a cigarette smoker, denies illicit drug use, states he drinks alcoholic beverages occasionally on the weekends. (RODOLFO MENSAH APRN) Review of Systems Review of Systems 14 body systems of review of systems have been reviewed. See HPI for pertinent positives and negative responses, otherwise all other systems are negative, nonpertinent or noncontributory. (RODOLFO MENSAH APRN) Current Medications Current Medications Current Medications Medications (Trade) Dose Ordered Sig/Harry Start Time Stop Time Status Last Admin Dose Admin Aspirin (Aspirin Chewable) 324 mg 1X ONCE 09/02/20 12:45 09/02/20 12:46 DC 09/02/20 12:46 324 MG Sodium Chloride (Normal Saline Flush) 10 ml QSHIFT PRN 09/02/20 12:45 09/02/20 12:47 10 ML (RODOLFO MENSAH APRN) Allergies Allergies Allergies Coded Allergies Type Severity Reaction Last Updated Verified No Known Drug Allergies 09/02/20 No (RODOLFO MENSAH APRN) Physical Exam Physical Exam Constitutional: Well developed, well nourished, no acute distress, non-toxic appearance. 39-year-old male in no apparent distress. HENT: Normocephalic, atraumatic, bilateral external ears normal, oropharynx mois t, no oral exudates, nose normal. Oropharynx moist, pink, no deep tissue infectious process appreciated, no postnasal drip appreciated, bilateral nasal turbinates moist, no drainage appreciated, no lymphadenopathy of the head or neck appreciated, no trismus, no drooling appreciated. Eyes: PERRLA, EOMI, conjunctiva normal, no discharge. Neck: Normal range of motion, no tenderness, supple, no stridor. No meningismus signs, no nuchal rigidity appreciated. Cardiovascular:Heart rate regular rhythm, no murmur, heart rate tachycardic, heart sounds S1-S2 to auscultation. Lungs & Thorax: Breath sounds coarse all lung chavis to auscultation. No other adventitious lung sounds appreciated. Abdomen: Bowel sounds normal, soft, no tenderness, no masses, no pulsatile masses. Skin: Warm, dry, no erythema, no rash. Back: No tenderness, no CVA tenderness. Extremities: No tenderness, no cyanosis, no clubbing, ROM intact, no edema. Distal cap refill less than 2 seconds, +2/4 pulses. Neurologic: Alert and oriented X 3, normal motor function, normal sensory function, no focal deficits noted. Psychologic: Affect normal, judgement normal, mood normal. (RODOLFO MENSAH APRN) Current Patient Data Vital Signs Vital Signs Date Time Temp Pulse Resp B/P (MAP) Pulse Ox O2 Delivery O2 Flow Rate FiO2 09/02/20 12:20 98.5 128 20 134/90 (105) 95 Lab Results Laboratory Tests Test 09/02/20 12:20 White Blood Count 18.4 x10^3/uL (4.0-11.0) H Red Blood Count 4.22 x10^6/uL (4.30-5.70) L Hemoglobin 13.0 g/dL (13.0-17.5) Hematocrit 39.1 % (39.0-53.0) Mean Corpuscular Volume 92 fL (79-100) Mean Corpuscular Hemoglobin 31 pg (25-35) Mean Corpuscular Hemoglobin Concent 33 g/dL (31-37) Red Cell Distribution Width 14.2 % (11.5-14.5) Platelet Count 293 x10^3/uL (140-400) Neutrophils (%) (Auto) 82 % (31-73) H Lymphocytes (%) (Auto) 12 % (24-48) L Monocytes (%) (Auto) 6 % (0-9) Eosinophils (%) (Auto) 0 % (0-3) Basophils (%) (Auto) 0 % (0-3) Neutrophils # (Auto) 15.1 x10^3uL (1.8-7.7) H Lymphocytes # (Auto) 2.2 x10^3/uL (1.0-4.8) Monocytes # (Auto) 1.2 x10^3/uL (0.0-1.1) H Eosinophils # (Auto) 0.0 x10^3/uL (0.0-0.7) Basophils # (Auto) 0.0 x10^3/uL (0.0-0.2) Platelet Estimate Pending (RODOLFO MENSAH APRN) EKG EKG EKG performed at 1221 by house respiratory therapy staff, shows sinus tachycardia without ectopy heart rate 132 bpm, NM interval 0.114, QTc interval 0.433, no acute STEMI, no ACS, no acute ischemia appreciated, EKG interpreted by ED attending physician Dr. Moore. (RODOLFO MENSAH APRN) Radiology/Procedures Radiology/Procedures PATIENT: ALLI CAST ACCOUNT: [id number] : 1980 LOCATION: ER AGE: 39 SEX: M EXAM STATUS: REG ER ORD. PHYSICIAN: RODOLFO MENSAH APRN REASON: CHEST PAIN PROCEDURE: CHEST PA & LATERAL XR CHEST 2V History: Reason: CHEST PAIN / Spl. Instructions: / History: Comparison: September 06, 2016 Findings: No consolidation or pleural effusion. Normal heart size. No pneumothorax. Impression: 1. No acute cardiopulmonary process. Electronically signed by: Jd Sanchez DO (09/02/2020 2:42 PM) [id number] DICTATED AND SIGNED BY: JD SANCHEZ DO DATE: 09/02/20 144 CC: RODOLFO MENSAH APRN; PCP,NO; RODOLFO MOORE DO ~MTH0 0 (RODOLFO MENSAH APRN) Heart Score C/O Chest Pain: Yes HEART Score for Chest Pain: HEART Score for Chest Pain Response (Comments) Value History Slighlty/Non-Suspicious 0 ECG Normal 0 Age < 45 0 Risk Factors 1 or 2 Risk Factors 1 Troponin < Normal Limit 0 Total 1 Risk Factors: Risk Factors: DM, Current or recent (<one month) smoker, HTN, HLP, family history of CAD, obesity. Risk Scores: Risk Factors: DM, Current or recent (<one month) smoker, HTN, HLP, family history of CAD, obesity. (RODOLFO MENSAH APRN) Course & Med Decision Making Course & Med Decision Making Pertinent Labs and Imaging studies reviewed. (See chart for details) 39-year-old male, vital signs reviewed, presents emergency department concerning sudden onset of chest pain this morning while mowing the lawn. Physical examination concerning for possible cardiorespiratory process, ED cardiac work- up ordered, will defer chest x-ray imaging pending D-dimer result, COVID-19 testing ordered. 30 mg IV Toradol given for pain. Pending results at this time. Patient denies illicit drug use, however patient has no history of tachycardic events, urine drug screen ordered to rule out illicit drug reasons for tachycardia and chest pain. Will initiate 1 L normal saline wide open bolus concerning possible dehydration related to physical activity with patient reporting no fluid intake prior to mowing his lawn. Patient is D-dimer negative, ordered PA lateral chest related to chest pain. Patient's second serial troponin enzyme elevated, discussed patient case with ED attending Dr. Moore, will call this an NSTEMI, will start on heparin protocol, discussed findings with patient, patient is amendable to being transferred to [facility] via ambulance for admission to inpatient management Dr. Mosqueda and cardiology consult for NSTEMI. Upon reevaluation of the patient the patient is pain-free and symptom-free. The patient remains nontoxic in appearance. Discussed patient case with hospital inpatient management Dr. Mosqueda who has agreed to accept patient in transfer to [facility] with the information he was given by me. Per Dr. Mosqueda's request, called and discussed case with [facility] software qa system specialist Dr. Renae who had no further orders or recommendations to given patient transfer to [facility]. Patient awaiting transfer to [facility] at this time, Dr. Mosqueda has assumed patient care. (RODOLFO MENSAH APRN) Dragon Disclaimer Dragon Disclaimer This electronic medical record was generated, in whole or in part, using a voice recognition dictation system. (RODOLFO MENSAH APRN) Departure Departure: Impression: Primary Impression: NSTEMI (non-ST elevated myocardial infarction) Disposition: 02 SHORT TERM HOSPITAL Admitting Physician: Evelin Mosqueda (Admit to [facility] and transfer to Dr. Mosqueda telemetry unit for NSTEMI.) (RODOLFO MENSAH APRN) Condition: GUARDED Referrals: PCP,NO (PCP) Attending Signature Attending Signature I have reviewed the PA/INFERTILITY MEDICAL ASSISTANT's note and plan of care. I was available for consultation as needed during the patient's visit in the emergency department. I agree with the clinical impression, plan, and disposition. (RODOLFO MOORE DO) RODOLFO MENSAH APRN September 02, 2020 13:09 RODOLFO MOORE DO September 03, 2020 06:16
[2020-09-02 13:16] LABS: ALBUMIN 3.6 g/dL (3.4-5.0); ALBUMIN/GLOBULIN RATIO 1.1 (1.0-1.7); DIRECT BILIRUBIN 0.1 mg/dL (0.0-0.2); MAGNESIUM 1.7 mg/dL (1.8-2.4); TOTAL BILIRUBIN 0.2 mg/dL (0.2-1.0); TOTAL PROTEIN 6.9 g/dL (6.4-8.2)
[2020-09-02] MEDS: KETOROLAC 30 MG/ML VIAL. IVP ONE (13:29)
--- NOTE | 2020-09-02 14:45 | RAD ---
XR CHEST 2V History: Reason: CHEST PAIN / Spl. Instructions: / History: Comparison: September 06, 2016 Findings: No consolidation or pleural effusion. Normal heart size. No pneumothorax. Impression: 1. No acute cardiopulmonary process. Electronically signed by: Jd Sanchez DO (09/02/2020 2:42 PM) [id number]
[2020-09-02 15:20] LABS: BARBITURATES NEG (NEG); BENZODIAZEPINES POS (NEG); CANNABINOIDS POS (NEG); COCAINE NEG (NEG); METHADONE NEG (NEG); OPIATES NEG (NEG); PHENCYCLIDINE NEG (NEG)
[2020-09-02 15:26] LABS: BILIRUBIN,URINE NEG (NEG); CLARITY,URINE CLEAR; COLOR,URINE YELLOW; GLUCOSE,URINE NEG (NEG); NITRITE,URINE NEG (NEG); UROBILINOGEN,URINE 0.2 mg/dL (0.2 mg/dL)
[2020-09-02 15:30] LABS: BACTERIA,URINE 0 /HPF (0-FEW); SQUAMOUS EPITHELIAL CELL,UR OCC /LPF
[2020-09-02 15:33] LABS: GRANULAR CASTS,URINE FEW /HPF; HYALINE CASTS, URINE MOD /HPF
[2020-09-02 15:35] LABS: AMPHETAMINE/METHAMPHETAMINE NEG (NEG)
[2020-09-02 16:46] LABS: % BANDS 2 % (0-9); % LYMPHS 11 % (24-48); % MONOS 6 % (0-10); % SEGS 81 % (35-66); PLT ESTIMATE ADEQUATE (ADEQUATE)
[2020-09-02] MEDS: HEPARIN for IV BOLUS 10,000 UNIT/10 ML VIAL. IV ONE (17:37)
[2020-09-02] MEDS: HEPARIN 25,000UTS/250ML PREMIX 250 ML IV PRN (17:41)
[2020-09-02 20:00] VITALS: BP 128/88
== END 2020-09-02 19:30 | disposition short-term general hospital (02) ==
LOC: ER 12:17
DX: I21.4 Non-ST elevation (NSTEMI) myocardial infarction (principal); J45.909 Unspecified asthma, uncomplicated; F17.210 Nicotine dependence, cigarettes, uncomplicated; Z20.822 Contact with and (suspected) exposure to COVID-19
CPT/HCPCS: 36415; 71046; 80053; 80076; 80307; 81001; 82553; 83690; 83735; 83880; 84484; 85007; 85025; 85379; 85610; 85730; 93005; 96361; 96365; 96375; 96376; 99285; J1644; J1885; J7030; U0003

== ENCOUNTER 2020-11-04 09:27 | Emergency (ER) | payer SELFPAY ==
[~2020-11-04] VITALS: Ht 157.5 cm; Wt 75.0 kg
--- NOTE | 2020-11-04 09:37 | PHYS DOC ---
Past History Past Medical History: Asthma, Other Additional Past Medical Histor: Blood clots in brain Past Surgical History: Appendectomy Additional Past Surgical Histo: ORIF wrist Smoking: Cigarettes Alcohol Use: Occasionally Drug Use: None, Marijuana Adult General Chief Complaint Chief Complaint: CHEST PAIN [facility] HPI Patient is a 40-year-old male presenting for chest pain. Onset was approxi mately 1-1/2 hours prior to arrival. 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 Reports numbness was transient in self resolved in 15 minutes, states his substernal chest pressure is still present and currently 3/10 severity but has lessened in severity since onset. Patient immediately sat down and told coworkers, was subsequently advised to present to the ER for evaluation. Patient took all home medications prior to work, he is on 81 mg aspirin daily, metoprolol and high intensity statin. He has known history of CAD with recent [facility], reports he had some blockage but no intervention performed. Denies any recent sick contacts or concerning exposures, no recent travel, fever, cough or other concerning signs or symptoms. Review of Systems Review of Systems Fourteen body systems of review of systems have been reviewed. See HPI for pertinent positives and negative responses, other [place] all other systems are negative, non-pertinent or non-contributory Allergies Allergies Allergies Coded Allergies Type Severity Reaction Last Updated Verified No Known Drug Allergies 09/02/20 No Physical Exam Physical Exam Constitutional: Well developed, well nourished, no acute distress, non-toxic appearance. HENT: Normocephalic, atraumatic, bilateral external ears normal, oropharynx melisa st, no oral exudates, nose normal. Eyes: PERRLA, EOMI, conjunctiva normal, no discharge. Neck: Normal range of motion, no tenderness, supple, no stridor. Cardiovascular: Heart rate regular, sinus rhythm, no murmurs rubs or gallops Lungs & Thorax: Bilateral breath sounds clear to auscultation Abdomen: Bowel sounds normal, soft, no tenderness, no masses, no pulsatile masses. Nonsurgical abdomen, no peritoneal signs Skin: Warm, dry, no erythema, no rash. Back: No tenderness, no CVA tenderness. Extremities: No tenderness, no cyanosis, no clubbing, ROM intact, no edema. Neurologic: Alert and oriented X 3, grossly normal motor & sensory function, no focal deficits noted. Psychologic: Affect normal, judgement normal, mood normal. Current Patient Data Vital Signs Vital Signs Date Time Temp Pulse Resp B/P (MAP) Pulse Ox O2 Delivery O2 Flow Rate FiO2 11/04/20 09:30 97.9 89 16 139/97 94 Room Air Vital Signs Date Time Temp Pulse Resp B/P (MAP) Pulse Ox O2 Delivery O2 Flow Rate FiO2 11/04/20 10:20 97 138/95 11/04/20 09:30 97.9 16 94 Room Air Lab Results Laboratory Tests Test 11/04/20 09:40 White Blood Count 6.1 x10^3/uL Red Blood Count 4.41 x10^6/uL Hemoglobin 13.8 g/dL Hematocrit 40.6 % Mean Corpuscular Volume 92 fL Mean Corpuscular Hemoglobin 31 pg Mean Corpuscular Hemoglobin Concent 34 g/dL Red Cell Distribution Width 14.6 % Platelet Count 251 x10^3/uL Neutrophils (%) (Auto) 58 % Lymphocytes (%) (Auto) 30 % Monocytes (%) (Auto) 8 % Eosinophils (%) (Auto) 4 % Basophils (%) (Auto) 1 % Neutrophils # (Auto) 3.5 x10^3uL Lymphocytes # (Auto) 1.8 x10^3/uL Monocytes # (Auto) 0.5 x10^3/uL Eosinophils # (Auto) 0.2 x10^3/uL Basophils # (Auto) 0.1 x10^3/uL Sodium Level 145 mmol/L Potassium Level 4.5 mmol/L Chloride Level 109 mmol/L Carbon Dioxide Level 25 mmol/L Anion Gap 11 Blood Urea Nitrogen 18 mg/dL Creatinine 1.6 mg/dL Estimated GFR (Cockcroft-Gault) 47.9 Glucose Level 111 mg/dL Calcium Level 8.8 mg/dL Troponin I Quantitative < 0.017 ng/mL PF-Lnv-Q-Type Natriuretic Peptide 39 pg/mL Current Medications Medications (Trade) Dose Ordered Sig/Harry Route PRN Reason Start Time Stop Time Status Last Admin Dose Admin Nitroglycerin (Nitrostat) 0.4 mg PRN Q5MIN PRN SL CP RATING > 1/10 11/04/20 10:00 11/04/20 11:34 DC 11/04/20 10:20 Aspirin (Aspirin Chewable) 162 mg 1X ONCE PO 11/04/20 10:00 11/04/20 10:17 DC 11/04/20 10:19 EKG EKG EKG ordered and interpreted by myself at 0940 hrs. as sinus rhythm at 96 bpm, unremarkable intervals, no axis deviation, no acute ischemic findings, no STEMI EKG ordered and interpreted by myself 1041 hrs. as sinus rhythm at 89 bpm, unremarkable intervals, no axis deviation, no acute ischemic findings, no STEMI Radiology/Procedures Radiology/Procedures AP portable chest radiograph 11/04/2020 Clinical History: Chest pain. An AP erect portable digital radiograph of the chest was obtained. Comparison study is dated 09/02/2020. The cardiac and mediastinal silhouettes are within normal limits in size and configuration. No pulmonary infiltrate is seen. No pleural effusion or pneumothorax is noted. The osseous structures are grossly intact. Impression: No acute abnormality is seen. Electronically signed by: Rodolfo Villareal MD (11/04/2020 10:13 AM) [id number] Heart Score C/O Chest Pain: Yes HEART Score for Chest Pain: HEART Score for Chest Pain Response (Comments) Value History Moderately Suspicious 1 ECG Normal 0 Age < 45 0 Risk Factors 1 or 2 Risk Factors 1 Troponin < Normal Limit 0 Total 2 Risk Factors: Risk Factors: DM, Current or recent (<one month) smoker, HTN, HLP, family history of CAD, obesity. Risk Scores: Risk Factors: DM, Current or recent (<one month) smoker, HTN, HLP, family history of CAD, obesity. Course & Med Decision Making Course & Med Decision Making ABCs unremarkable. I disclosed entirety of ER findings and discussed most likely diagnosis of chest pain. ER work-up unremarkable for any emergent or surgical issues. Nitroglycerin x1 administered while in ER improved patient's pain entirely. I discussed heart score, given his history of recent cardiac catheterization that was negative for any intervention he felt comfortable with work-up performed while in ER. 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 As such, I stressed need for close outpatient follow-up to review today's ER visit and have prescribed patient a new prescription for nitroglycerin. Strict return precautions were also discussed at length with good understanding by patient. Patient voiced under standing and agreement with the plan. Patient knows to come back for repeat evaluation if concerning signs or symptoms present prior to outpatient follow- up. Hemodynamically stable, ambulatory and well-appearing at time of disposition. Dragon Disclaimer Dragon Disclaimer This electronic medical record was generated, in whole or in part, using a voice recognition dictation system. Departure Departure: Impression: Primary Impression: Chest pain Disposition: HOME / SELF CARE / HOMELESS Condition: STABLE Referrals: PCP,VITALIY (PCP) Patient Instructions: Chest Pain (Nonspecific) Additional Instructions: You were seen for chest pain. Your workup did not show any acute abnormalities today, but does not indicate that you do not have underlying cardiovascular disease or will not suffer from an adverse cardiac event after ER departure. I discussed and recommended admission for cardiac observation but you deferred, as such, you do need to follow up with your primary doctor and route sales driver for further evaluation and treatment. You should return to the ED if you develop worsening chest pain, shortness of breath, fever, abnormal sweating, leg swelling, or any other new or concerning symptoms. Scripts Nitroglycerin (NITROGLYCERIN SubLingual) 0.4 Mg Tab.subl 1 TAB SL UD for chest pain, #25 TAB 0 Refills 1st sign of attack; may repeat every 5 mins; if pain persists after 3 in 15 min, medical attention is recommended Prov: REY CONCEPCION DO 11/04/20 REY CONCEPCION DO Nov 04, 2020 09:37
[2020-11-04] MEDS ORDERED: ASPIRIN CHEWABLE 81 MG TABLET. PO ONE (10:00)
[2020-11-04] MEDS ORDERED: NITROGLYCERIN SUBLINGUAL 0.4 MG BOTTLE OF 25. SL PRN (10:00)
[2020-11-04 10:04] LABS: BASO # 0.1 x10^3/uL (0.0-0.2); BASO % 1 % (0-3); EOS # 0.2 x10^3/uL (0.0-0.7); EOS % 4 % (0-3); HEMATOCRIT 40.6 % (39.0-53.0); HEMOGLOBIN 13.8 g/dL (13.0-17.5); LYMPH # 1.8 x10^3/uL (1.0-4.8); LYMPH % 30 % (24-48); MEAN CORPUSCULAR HEMOGLOBIN 31 pg (25-35); MEAN CORPUSCULAR HGB CONC 34 g/dL (31-37); MEAN CORPUSCULAR VOLUME 92 fL (79-100); MONO # 0.5 x10^3/uL (0.0-1.1); MONO % 8 % (0-9); NEUT # 3.5 x10^3uL (1.8-7.7); NEUT % 58 % (31-73); PLATELET COUNT 251 x10^3/uL (140-400); RED BLOOD COUNT 4.41 x10^6/uL (4.30-5.70); RED CELL DISTRIBUTION WIDTH 14.6 % (11.5-14.5); WHITE BLOOD COUNT 6.1 x10^3/uL (4.0-11.0)
[2020-11-04 10:15] LABS: CALCIUM 8.8 mg/dL (8.5-10.1); CREATININE 1.6 mg/dL (0.7-1.3); GFR 47.9; POTASSIUM 4.5 mmol/L (3.5-5.1)
--- NOTE | 2020-11-04 10:16 | RAD ---
AP portable chest radiograph 11/04/2020 Clinical History: Chest pain. An AP erect portable digital radiograph of the chest was obtained. Comparison study is dated 09/02/2020. The cardiac and mediastinal silhouettes are within normal limits in size and configuration. No pulmon hawa infiltrate is seen. No pleural effusion or pneumothorax is noted. The osseous structures are carey sly intact. Impression: No acute abnormality is seen. Electronically signed by: Rodolfo Villareal MD (11/04/2020 10:13 AM) [id number]
--- NOTE | 2020-11-04 10:39 | EKG ---
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
--- NOTE | 2020-11-04 10:40 | EKG ---
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
[2020-11-04] MEDS ORDERED: NITR0.4T22 SL (11:10)
[2020-11-04 11:29] VITALS: BP 125/87
== END 2020-11-04 11:34 | disposition home or self-care (01) ==
LOC: ER 09:27
DX: R07.2 Precordial pain (principal); R20.0 Anesthesia of skin; J45.909 Unspecified asthma, uncomplicated; F17.210 Nicotine dependence, cigarettes, uncomplicated
CPT/HCPCS: 36415; 71045; 80048; 83880; 84484; 85025; 93005; 99285

== ENCOUNTER 2021-02-01 20:41 | Emergency (ER) | payer SELFPAY ==
[~2021-02-01] VITALS: Ht 157.5 cm; Wt 77.0 kg
[~2021-02-01 20:41] MED LIST changes: +NITR0.4T22 SL
[2021-02-01] MEDS ORDERED: IV NORMAL SALINE 1,000ML 1,000 ML IV ONE (21:45)
[2021-02-01] MEDS ORDERED: ACETAMINOPHEN 325 MG TABLET PO ONE (21:45)
--- NOTE | 2021-02-01 21:53 | PHYS DOC ---
Past History Past Medical History: Asthma, Other Additional Past Medical Histor: Blood clots in brain Past Surgical History: Appendectomy Additional Past Surgical Histo: ORIF wrist Smoking: Cigarettes Alcohol Use: None Drug Use: None, Marijuana General Adult EDM: Chief Complaint: COUGH HPI: HPI: Patient is a 40-year-old male who presents to the ER for multiple complaints including a nonproductive cough, shortness of breath, generalized chest wall pain with cough, sore throat that started yesterday. Patient reports that he has had sick exposures at home, he states that his children have the same symptoms. Patient has been taking DayQuil and NyQuil without any relief in his symptoms. He is a current smoker. He is unvaccinated for COVID-19. Patient is noted to be tachycardic but not hypoxic. Patient denies fever, loss of taste or smell, nausea or vomiting. Review of Systems: Review of Systems: 14 body systems of the review of systems have been reviewed. See HPI for pertinent positive and negative responses, otherwise all other systems are negative, nonpertinent or noncontributory Allergies: Allergies: Allergies Coded Allergies Type Severity Reaction Last Updated Verified No Known Drug Allergies 09/02/20 No Physical Exam: PE: Constitutional: Well developed, well nourished, no acute distress, non-toxic appearance. [] HENT: Normocephalic, atraumatic, bilateral external ears normal, oropharynx moist, no oral exudates, nose normal. [] Eyes: PERRL, EOMI, conjunctiva normal, no discharge. [] Neck: Normal range of motion, no tenderness, supple, no stridor. [] Cardiovascular:Heart rate regular rhythm, no murmur [] Lungs & Thorax: Bilateral upper lobes clear, mild wheezes noted lower lobes Abdomen: Bowel sounds normal, soft, no tenderness, no masses, no pulsatile masses. [] Skin: Warm, dry, no erythema, no rash. [] Back: Normal range of motion Extremities: No tenderness, no cyanosis, no clubbing, ROM intact, no edema. [] Neurologic: Alert and oriented X 3, normal motor function, normal sensory function, no focal deficits noted. [] Psychologic: Affect normal, judgement normal, mood normal. [] EKG: EKG: EKG performed by ER staff at 2158 shows sinus tachycardia with a rate of 120, no STEMI read by physician at 2205[] Radiology/Procedures: Radiology/Procedures: [] Heart Score: C/O Chest Pain: Yes HEART Score for Chest Pain: HEART Score for Chest Pain Response (Comments) Value History Slighlty/Non-Suspicious 0 ECG Normal 0 Age < 45 0 Risk Factors 1 or 2 Risk Factors 1 Troponin < Normal Limit 0 Total 1 Risk Factors: Risk Factors: DM, Current or recent (<one month) smoker, HTN, HLP, family history of CAD, obesity. Risk Scores: Score 0 - 3: 2.5% MACE over next 6 weeks - Discharge Home Score 4 - 6: 20.3% MACE over next 6 weeks - Admit for Clinical Observation Score 7 - 10: 72.7% MACE over next 6 weeks - Early Invasive Strategies Course & Med Decision Making: Course & Med Decision Making Pertinent Labs and Imaging studies reviewed. (See chart for details) Patient is a 40-year-old male who presents to the ER for nonproductive cough, shortness of breath, sore throat, chest wall pain with cough and deep inspiration. Patient has sick exposures at home. Patient was noted to be tachycardic. Work-up in the ER consisted of chest x-ray, blood work, EKG. Patient has a history of a LA. Patient will be Covid tested, advised to self isolate until he receives these results. Patient treated with a liter of normal saline and Tylenol as his temperature in the ER was 99.9. Following treatment, patient's heart rate is within normal limits at a rate of 96. Patients oxygen saturation remains 97% on room air. His CBC and CMP are unremarkable. Negative troponin. Heart score is 1 due to prior history. Chest x-ray negative for any acute findings. It is likely that patient has a COVID-19 viral illness. He was advised to self isolate, increase fluids, take Tylenol or ibuprofen and follow- up with primary care provider. Patient discharged home with albuterol inhaler. Educated on smoking cessation. I discussed with patient all findings and diagnostic testing as well as the need to follow-up with PCP for further evaluation and treatment or return to the ER if any new or worsening symptoms. Strict return precautions were also discussed at length. Patient voiced understanding and agreement with the plan. Patient is hemodynamically stable at the time of disposition. Dragon Disclaimer: Dragon Disclaimer: This electronic medical record was generated, in whole or in part, using a voice recognition dictation system. Departure Departure: Impression: Primary Impression: Person under investigation for COVID-19 Disposition: 01 HOME / SELF CARE / HOMELESS Condition: GOOD Referrals: PCPVITALIY (PCP) Patient Instructions: Cough, Adult Additional Instructions: You were seen in the ER today for cough with sore throat and shortness of breath. Your work-up in the ER was unremarkable, your chest x-ray was negative for pneumonia. You were tested for COVID-19 in the ER. I think it is likely that you do have a COVID-19 viral illness. You will be notified of your results when they become available in approximately 2 days, please self isolate until you receive the results. You can take Tylenol or ibuprofen at home for any pain or fevers. You can take Delsym [id number] for your cough. I would advise you to discontinue smoking as that could be contributing to your shortness of breath. You are being discharged home with an inhaler that you can use for shortness of breath or wheezing. Use this as directed. Increase your fluids and rest. Follow-up with your primary care provider tomorrow regarding your ER visit. Return to the ER if you develop worsening of your shortness of breath, chest pain, worsening of your cough, high fevers refractory to treatment, intractable nausea or vomiting or any new or worsening concerns. EMERGENCY DEPARTMENT GENERAL DISCHARGE INSTRUCTIONS Thank you for coming to [facility] (ED) today and trusting us with you care. We trust that you had a positivie experience in our Emergency Department. If you wish to speak to the department management, you may call the director at [phone]. YOUR FOLLOW UP INSTRUCTIONS ARE FOLLOWS: 1. Do you have a private Doctor? If you do not have a private doctor, please ask for a resource list of physicians or clinics that may be able to assist you with follow up care. 2. The Emergency Physician has interpreted your x-rays. The X-Ray specialist will also review them. If there is a change in the findings, you will be notified in 48 hours when at all possible. 3. A lab test or culture has been done, your results will be reviewed and you will be notified if you need a change in treatment. ADDITIONAL INSTRUCTIONS AND INFORMATION: 1. Your care today has been supervised by a physician who is specially trained in emergency care. Many problems require more than one evaluation for a complete diagnosis and treatment. We recommend that you schedule your follow up appointment as recommended to ensure complete treatment of you illness or injury. If you are unable to obtain follow up care and continue to have a problem, or if your condition worsens, we recommend that you return to the ED. 2. We are not able to safely determine your condition over the phone nor are we able to give sound medical advice over the phone. For these safety reasons, if you call for medical advice we will ask you to come to the ED for further evaluation. 3. If you have any questions regarding these discharge instructions please call the ED at [phone]. SAFETY INFORMATION: In the interest of safety, wellness, and injury prevention; we encourage you to wear your sealbelt, if you smoke; quite smoking, and we encourage family to use a protective helmet for bicycling and other sporting events that present an increased risk for head injury. IF YOUR SYMPTOMS WORSEN OR NEW SYMPTOMS DEVELOP, OR YOU HAVE CONCERNS ABOUT YOUR CONDITION; OR IF YOUR CONDITION WORSENS WHILE YOU ARE WAITING FOR YOUR FOLLOW UP APPOINTMENT; EITHER CONTACT YOUR PRIMARY CARE DOCTOR, THE PHYSICIAN WHOSE NAME AND NUMBER YOU WERE GIVEN, OR RETURN TO THE ED IMMEDIATELY. Scripts Albuterol Sulfate (PROAIR HFA INHALER) 8.5 Gm Hfa.aer.ad 2 PUFF IH PRN Q4-6HRS PRN for wheezing for 21 Days, #1 INHALER 0 Refills as needed for wheezing Prov: ARCELIA HUFF APRN 02/01/21 ARCELIA HUFF APRN Feb 01, 2021 21:53
--- NOTE | 2021-02-01 22:32 | EKG ---
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
[2021-02-01 22:44] LABS: BASO # 0.1 x10^3/uL (0.0-0.2); BASO % 1 % (0-3); EOS # 0.4 x10^3/uL (0.0-0.7); EOS % 4 % (0-3); HEMATOCRIT 43.3 % (39.0-53.0); HEMOGLOBIN 14.6 g/dL (13.0-17.5); LYMPH # 1.3 x10^3/uL (1.0-4.8); LYMPH % 15 % (24-48); MEAN CORPUSCULAR HEMOGLOBIN 31 pg (25-35); MEAN CORPUSCULAR HGB CONC 34 g/dL (31-37); MEAN CORPUSCULAR VOLUME 92 fL (79-100); MONO # 0.8 x10^3/uL (0.0-1.1); MONO % 9 % (0-9); NEUT # 6.3 x10^3uL (1.8-7.7); NEUT % 71 % (31-73); PLATELET COUNT 265 x10^3/uL (140-400); RED BLOOD COUNT 4.71 x10^6/uL (4.30-5.70); RED CELL DISTRIBUTION WIDTH 14.6 % (11.5-14.5); WHITE BLOOD COUNT 8.8 x10^3/uL (4.0-11.0)
[2021-02-01 22:50] LABS: CALCIUM 8.9 mg/dL (8.5-10.1); CREATININE 1.3 mg/dL (0.7-1.3); GFR 60.8
[2021-02-01 22:56] LABS: ALBUMIN 3.6 g/dL (3.4-5.0); TOTAL BILIRUBIN 0.2 mg/dL (0.2-1.0); TOTAL PROTEIN 7.2 g/dL (6.4-8.2)
--- NOTE | 2021-02-01 23:17 | RAD ---
Single view chest dated 02/01/2021 11:14 PM: COMPARISON: 09/02/2020 and 11/04/2020 Clinical Indication: Cough and shortness of breath. Findings: Single upright portable exam of the chest was performed. Heart size and mediastinal contours are with in normal limits. Lungs are clear. No consolidation or pleural effusion. No pneumothorax. IMPRESSION: No acute radiographic abnormality. Electronically signed by: Erick Valverde MD (02/01/2021 11:14 PM) DENNY
[2021-02-01] MEDS ORDERED: ALBU2.5V8 IH (23:29)
[2021-02-01 23:40] VITALS: BP 126/72
== END 2021-02-01 23:44 | disposition home or self-care (01) ==
LOC: ER 20:41
DX: R05.9 Cough, unspecified (principal); R06.02 Shortness of breath; R07.89 Other chest pain; J02.9 Acute pharyngitis, unspecified; J45.909 Unspecified asthma, uncomplicated; F17.210 Nicotine dependence, cigarettes, uncomplicated; Z20.822 Contact with and (suspected) exposure to COVID-19
CPT/HCPCS: 71045; 80053; 84484; 85025; 93005; 96360; 99285; C9803; J7030; U0003

== ENCOUNTER 2021-05-17 00:08 | Emergency (ER) | payer SELFPAY ==
[~2021-05-17] VITALS: Ht 157.5 cm; Wt 79.0 kg
--- NOTE | 2021-05-17 00:16 | PHYS DOC ---
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 coughing ... I hurt all over.. got chest pain.. dizzy..." Patient is a 40 year old male who presents with above hx and complaints of fever, chills, malaise, arthralgia, myalgia, cough that is nonproductive, dizzy and fatigue. Patient states he only been sick for the last 24 hours. Patient has been exposed to daughter who had an upper respiratory infection his daughter was also exposed to COVID test results are pending on his daughter. Patient has not gotten COVID vaccination or flu vaccination . Patient has had previous OR and unprovoked pulmonary embolisms. Patient currently not on any anticoagulants. Patient does take a daily baby aspirin. 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 Patient does continue to smoke. Patient has past medical history of unprovoked pulmonary embolism, bronchial asthma, myocardial infarction, depression, and asthma.. Review of Systems: Review of Systems: Constitutional: Complains of fever or chills Eyes: Denies change in visual acuity HENT: Complains of nasal congestion Respiratory: Complains of cough or shortness of breath Cardiovascular: Complains of chest pain GI: Denies abdominal pain, vomiting, bloody stools or diarrhea. Complains of : Denies dysuria Musculoskeletal: Complains of generalized myalgia and arthralgia Integument: Denies rash Neurologic: Denies headache, focal weakness or sensory changes Endocrine: Denies polyuria or polydipsia Lymphatic: Denies swollen glands Psychiatric: Denies depression or anxiety Family History: Family History: Daughter was recently sick with an upper respiratory infection Current Medications: Current Meds: See nursing for home meds Allergies: Allergies: Allergies Coded Allergies Type Severity Reaction Last Updated Verified No Known Drug Allergies 09/02/20 No Physical Exam: PE: Constitutional: no acute distress, ill appearance. [] HENT: Normocephalic, atraumatic, bilateral external ears normal, oropharynx moist, no oral exudates, nose swollen turbinates clear rhinorrhea. Postnasal drip and mild erythema Eyes: PERRLA, EOMI, conjunctiva normal, no discharge. [] Neck: Normal range of motion, no tenderness, supple, no stridor. [] Cardiovascular tachycardia:Heart rate regular rhythm, no murmur [] bedside monitor shows sinus tachycardia. Lungs & Thorax: Bilateral breath sounds equal apex with scattered wheezes on auscultation [] Abdomen: Bowel sounds decreased, soft, no tenderness, no masses, no pulsatile masses. [] Skin: Warm, dry, no erythema, no rash. Tattoos Back: No tenderness, no CVA tenderness. [] Extremities: No tenderness, no cyanosis, no clubbing, ROM intact, no edema. No cording appreciated Neurologic: Alert and oriented X 3, normal motor function, normal sensory function, no focal deficits noted. [] Psychologic: Affect anxious, judgement normal, mood normal. [] EKG: EKG: My interpretation EKG shows a sinus tachycardia 120 bpm. No findings acute STEMI of contralateral changes. Time of EKG is 00 17 minutes .[] Radiology/Procedures: Radiology/Procedures: [address] [address] IMAGING REPORT Signed PATIENT: ALLI CAST ACCOUNT: [id number] : 1980 LOCATION: ER AGE: 40 SEX: M EXAM STATUS: REG ER ORD. PHYSICIAN: ALLI WEISS MD REASON: Chest pain, fever, PE hx Omni 350 100cc PROCEDURE: CT ANGIOGRAPHY CHEST CTA chest with contrast dated 05/17/2021. COMPARISON: None. CLINICAL INDICATION: Chest pain and fever. Possible pulmonary embolus. TECHNIQUE: Contiguous axial imaging the chest performed following the intravenous demonstration of 100 cc Omnipaque 350. Study was performed as dedicated PE protocol with thin cut coronal MIPS 3-D reconstruction. One or more of the following individualized dose reduction techniques were utilized for this examination: 1. Automated exposure control 2. Adjustment of the mA and/or kV according to patient size 3. Use of iterative reconstruction technique FINDINGS: Contrast bolus is adequate. No evidence of central, lobar or segmental pulmonary embolus. Subsegmental branches are not well evaluated based on technique. Heart size is within normal limits. No pericardial effusion. Scattered coronary calcifications. Mild aneurysmal dilation of the ascending thoracic aorta measuring 4.3 cm. No intimal flap. Borderline enlarged precarinal, subcarinal and bilateral hilar lymph nodes, unchanged. Central airways are patent. Lungs are clear. No consolidation or pleural effusion. No pneumothorax. Limited images of the upper abdomen are unremarkable. There is diffuse low- density liver suggesting mild fatty infiltration. No apparent mass. Bone window show no acute finding. Mild multilevel spondylosis. IMPRESSION: 1. No evidence of central, lobar or segmental pulmonary embolus. 2. Clear lungs. 3. Coronary artery calcifications and mild aneurysmal dilation of the ascending thoracic aorta. 4. Mild fatty infiltration of the liver. Electronically signed by: Erick Valverde MD (05/17/2021 1:21 AM) [facility] DICTATED AND SIGNED BY: ERICK VALVERDE MD DATE: 05/17/21116 CC: ALLI WEISS MD; PCP,NO ~MTH0 0 [][place] [id number] IMAGING REPORT Signed PATIENT: ALLI CAST ACCOUNT: [id number] : 1980 LOCATION: ER AGE: 40 SEX: M EXAM STATUS: DEP ER ORD. PHYSICIAN: ALLI WEISS MD REASON: Chest pain, fever PROCEDURE: PORTABLE CHEST 1V Single view chest dated 05/17/2021 2:51 AM: COMPARISON: 02/01/2021 Clinical Indication: Chest pain and fever. Findings: Single upright portable exam of the chest was performed. Heart size and mediastinal contours are within normal limits. Lungs are clear. No consolidation or pleural effusion. No pneumothorax. IMPRESSION: No acute radiographic abnormality. Electronically signed by: Erick Valverde MD (05/17/2021 2:51 AM) [facility] DICTATED AND SIGNED BY: ERICK VALVERDE MD DATE: 05/17/21250 CC: ALLI WEISS MD; PCP,NO ~MTH0 0 Heart Score: C/O Chest Pain: Yes HEART Score for Chest Pain: HEART Score for Chest Pain Response (Comments) Value History Slighlty/Non-Suspicious 0 ECG Nonspecific Repolarizatio 1 Age < 45 0 Risk Factors 1 or 2 Risk Factors 1 Troponin < Normal Limit 0 Total 2 Risk Factors: Risk Factors: DM, Current or recent (<one month) smoker, HTN, HLP, family history of CAD, obesity. Risk Scores: Score 0 - 3: 2.5% MACE over next 6 weeks - Discharge Home Score 4 - 6: 20.3% MACE over next 6 weeks - Admit for Clinical Observation Score 7 - 10: 72.7% MACE over next 6 weeks - Early Invasive Strategies Course & Med Decision Making: Course & Med Decision Making Pertinent Labs and Imaging studies reviewed. (See chart for details) Self isolate x5 days. Retest in 5 days if required for work. Wear a mask at all times to cover nose and mouth and interaction with others.. Use MDI 2 puffs 4 times a day. Take Zithromax 250 a day for the next 5 days. Push fluids. Tylenol ibuprofen for discomfort. Follow-up primary care. Return if any concerns. Stop smoking. Went over this acute illness. Get COVID vaccination in 4 to 6 months. Get Pneumovax. Get flu vaccination. Impression: 1. Chest Pain 2. COVID [] Dragon Disclaimer: Dragon Disclaimer: This electronic medical record was generated, in whole or in part, using a voice recognition dictation system. Departure Departure: Referrals: PCP,VITALIY (PCP) Scripts Apixaban (ELIQUIS) 5 Mg Tablet 5 MG PO BID for hx dvt, pe, covid for 14 Days, #28 TAB Prov: ALLI WEISS MD 05/17/21 Azithromycin (ZITHROMAX) 250 Mg Tablet 250 MG PO DAILY for ANTI-BIOTIC for 5 Days, #5 TAB 0 Refills Prov: ALLI WEISS MD 05/17/21 Kenzie Disclaimer This chart was dictated in whole or in part using Voice Recognition software in a busy, high-work load, and often noisy Emergency Department environment. It may contain unintended and wholly unrecognized errors or omissions. ALLI WEISS MD May 17, 2021 00:16
--- NOTE | 2021-05-17 00:29 | EKG ---
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
[2021-05-17] MEDS ORDERED: CONTRAST GIVEN. MC PRN (00:30)
[2021-05-17] MEDS ORDERED: IOHEXOL 350 MG/ML 100 ML VIAL. IV ONE (01:00)
[2021-05-17] MEDS ORDERED: IV RINGERS SOLUTION,LACTATED 1,000 ML IV SCH (01:00)
[2021-05-17] MEDS ORDERED: ALBUTEROL SULFATE 8GM INHALER. INH ONE (01:00)
[2021-05-17 01:04] LABS: INFLUENZA A PATIENT NEGATIVE (NEGATIVE); INFLUENZA B PATIENT NEGATIVE (NEGATIVE)
[2021-05-17 01:13] LABS: CALCIUM 8.4 mg/dL (8.5-10.1); CREATININE 1.4 mg/dL (0.7-1.3); GFR 55.8
--- NOTE | 2021-05-17 01:23 | RAD ---
CTA chest with contrast dated 05/17/2021. COMPARISON: None. CLINICAL INDICATION: Chest pain and fever. Possible pulmonary embolus. TECHNIQUE: Contiguous axial imaging the chest performed following the intravenous demonstration of 100 cc Omnipa que 350. Study was performed as dedicated PE protocol with thin cut coronal MIPS 3-D reconstruction. One or more of the following individualized dose reduction techniques were utilized for this examinat ion: 1. Automated exposure control 2. Adjustment of the mA and/or kV according to patient size 3. Use of iterative reconstruction technique FINDINGS: Contrast bolus is adequate. No evidence of central, lobar or segmental pulmonary embolus. Subsegmenta l branches are not well evaluated based on technique. Heart size is within normal limits. No pericardial effusion. Scattered coronary calcifications. Mild aneurysmal dilation of the ascending thoracic aorta measuring 4.3 cm. No intimal flap. Borderline enl arged precarinal, subcarinal and bilateral hilar lymph nodes, unchanged. Central airways are patent. Lungs are clear. No consolidation or pleural effusion. No pneumothorax. Limited images of the upper abdomen are unremarkable. There is diffuse low-density liver suggesting m ild fatty infiltration. No apparent mass. Bone window show no acute finding. Mild multilevel spondylosis. IMPRESSION: 1. No evidence of central, lobar or segmental pulmonary embolus. 2. Clear lungs. 3. Coronary artery calcifications and mild aneurysmal dilation of the ascending thoracic aorta. 4. Mild fatty infiltration of the liver. Electronically signed by: Erick Valverde MD (05/17/2021 1:21 AM) [facility]
[2021-05-17 01:25] LABS: ALBUMIN 3.4 g/dL (3.4-5.0); DIRECT BILIRUBIN 0.1 mg/dL (0.0-0.2); MAGNESIUM 1.9 mg/dL (1.8-2.4); TOTAL BILIRUBIN 0.2 mg/dL (0.2-1.0); TOTAL PROTEIN 7.1 g/dL (6.4-8.2)
[2021-05-17 01:27] LABS: BASO # 0.1 x10^3/uL (0.0-0.2); BASO % 1 % (0-3); EOS # 0.3 x10^3/uL (0.0-0.7); EOS % 4 % (0-3); HEMATOCRIT 39.4 % (39.0-53.0); HEMOGLOBIN 13.3 g/dL (13.0-17.5); LYMPH # 0.7 x10^3/uL (1.0-4.8); LYMPH % 10 % (24-48); MEAN CORPUSCULAR HEMOGLOBIN 31 pg (25-35); MEAN CORPUSCULAR HGB CONC 34 g/dL (31-37); MEAN CORPUSCULAR VOLUME 91 fL (79-100); MONO # 0.6 x10^3/uL (0.0-1.1); MONO % 9 % (0-9); NEUT # 5.5 x10^3uL (1.8-7.7); NEUT % 78 % (31-73); PLATELET COUNT 280 x10^3/uL (140-400); RED BLOOD COUNT 4.31 x10^6/uL (4.30-5.70); RED CELL DISTRIBUTION WIDTH 14.1 % (11.5-14.5); WHITE BLOOD COUNT 7.1 x10^3/uL (4.0-11.0)
[2021-05-17] MEDS ORDERED: ACETAMINOPHEN 500 MG TABLET PO ONE (01:30)
[2021-05-17] MEDS ORDERED: AZITHROMYCIN 250 MG TABLET. PO ONE (01:30)
[2021-05-17] MEDS ORDERED: ANTI-COAG MONITOR BY PHARMACY. MC PRN (01:45)
[2021-05-17] MEDS ORDERED: APIX5TAB3 PO (01:47)
[2021-05-17] MEDS ORDERED: AZIT250T PO (01:47)
[2021-05-17 01:56] LABS: BGAS PH 7.37 (7.35-7.46)
[2021-05-17] MEDS ORDERED: APIXABAN 5 MG TABLET. PO SCH (02:00)
[2021-05-17] MEDS ORDERED: IV RINGERS SOLUTION,LACTATED 1,000 ML IV ONE (02:00)
[2021-05-17] MEDS ORDERED: KETOROLAC 30 MG/ML VIAL. IVP ONE (02:00)
[2021-05-17 02:08] LABS: BARBITURATES NEG (NEG); BENZODIAZEPINES NEG (NEG); CANNABINOIDS POS (NEG); COCAINE NEG (NEG); METHADONE NEG (NEG); OPIATES NEG (NEG); PHENCYCLIDINE NEG (NEG)
[2021-05-17 02:10] LABS: BILIRUBIN,URINE NEG (NEG); CLARITY,URINE CLEAR; COLOR,URINE YELLOW; GLUCOSE,URINE NEG (NEG); NITRITE,URINE NEG (NEG); UROBILINOGEN,URINE 0.2 mg/dL (0.2 mg/dL)
[2021-05-17 02:11] LABS: AMPHETAMINE/METHAMPHETAMINE NEG (NEG); BACTERIA,URINE 0 /HPF (0-FEW); RBC,URINE OCC /HPF (0-2); WBC,URINE OCC /HPF (0-4)
[2021-05-17 02:42] VITALS: BP 117/75
--- NOTE | 2021-05-17 02:53 | RAD ---
Single view chest dated 05/17/2021 2:51 AM: COMPARISON: 02/01/2021 Clinical Indication: Chest pain and fever. Findings: Single upright portable exam of the chest was performed. Heart size and mediastinal contours are with in normal limits. Lungs are clear. No consolidation or pleural effusion. No pneumothorax. IMPRESSION: No acute radiographic abnormality. Electronically signed by: Erick Valverde MD (05/17/2021 2:51 AM) [facility]
== END 2021-05-17 02:48 | disposition home or self-care (01) ==
LOC: ER 00:08
DX: U07.1 COVID-19 (principal); R07.9 Chest pain, unspecified; J45.909 Unspecified asthma, uncomplicated; F17.210 Nicotine dependence, cigarettes, uncomplicated; I25.2 Old myocardial infarction; Z86.711 Personal history of pulmonary embolism
CPT/HCPCS: 36415; 71045; 71275; 80048; 80076; 80307; 81001; 82550; 82803; 83690; 83735; 83880; 84443; 84484; 85025; 85379; 85610; 85730; 87040; 87428; 93005; 94640; 96361; 96374; 99285; G0238; J1885; J7120; Q9967; 94664

== ENCOUNTER 2021-07-19 10:14 | Emergency (ER) | payer OTHER, SELFPAY ==
[~2021-07-19] VITALS: Ht 157.5 cm; Wt 79.0 kg
[~2021-07-19 10:14] MED LIST changes: +APIX5TAB3 PO; +AZIT250T PO
[2021-07-19 10:24] VITALS: BP 137/75
[2021-07-19] MEDS ORDERED: AMOX500C PO (10:30)
--- NOTE | 2021-07-19 10:31 | PHYS DOC ---
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 States that the pain in his ear is about 6 out of 10, dull and achy in nature. States he took some Tylenol yesterday. States he had not had time to see his primary care physician. States he is eating and drinking normally. States he is making urine and stool normally for him. Denies any recent traumas, travels, other illnesses, fevers or known ill contacts. Denies any chest pain, shortness of breath, abdominal pain, nausea, vomiting, diarrhea. States he has had his Covid vaccinations. Review of Systems Review of Systems Review of systems otherwise unremarkable except noted in HPI Allergies Allergies Allergies Coded Allergies Type Severity Reaction Last Updated Verified No Known Drug Allergies 09/02/20 No Physical Exam Physical Exam Constitutional: Well developed, well nourished, no acute distress, non-toxic appearance. [] HENT: Normocephalic, atraumatic, bilateral external ears normal, left tympanic m embrane erythematous, opaque and bulging, oropharynx moist, no oral exudates, nose normal. [] Eyes: conjunctiva normal, no discharge. [] Neck: Normal range of motion, no tenderness, supple, no stridor. [] Cardiovascular:Heart rate regular rhythm, no murmur [] Lungs & Thorax: No respiratory distress Skin: Warm, dry, no erythema, no rash. [] Neurologic: Alert and oriented X 3, no focal deficits noted. [] Psychologic: Affect normal, judgement normal, mood normal. [] EKG EKG [] Radiology/Procedures Radiology/Procedures [] Heart Score C/O Chest Pain: No Risk Factors: Risk Factors: DM, Current or recent (<one month) smoker, HTN, HLP, family history of CAD, obesity. Risk Scores: Risk Factors: DM, Current or recent (<one month) smoker, HTN, HLP, family history of CAD, obesity. Course & Med Decision Making Course & Med Decision Making Patient is a 40-year-old male presents with left ear pain and some nasal congestion Vital signs not concerning. Physical exam noted above. Given Tylenol, ibuprofen and Benadryl Started on amoxicillin for otitis media. Discussed symptom management at home. Advised to follow-up with primary care physician as soon as you can to update on ED visit Gave return precautions to the ED. Patient grateful, verbalized understanding and agreed with plan of discharge [] Dragon Disclaimer Dragon Disclaimer This electronic medical record was generated, in whole or in part, using a voice recognition dictation system. Departure Departure: Impression: Primary Impression: Otitis media Additional Impression: Nasal congestion Disposition: HOME / SELF CARE / HOMELESS Condition: STABLE Referrals: PCP,VITALIY (PCP) JOSSUE RAMOS MD Patient Instructions: Otitis Media, Adult Additional Instructions: Thank you for coming into the emergency department tonight and allowing us to take care of you. Please read the attached information carefully to go over things we discussed. Please take your antibiotics as prescribed and until gone. Please begin a Tylenol, ibuprofen and Benadryl regimen daily as needed. Please be sure to stay well-hydrated. Please follow-up with your primary care physician as soon as you can update on your ED visit and set up a follow-up visit. Please come back with new or concerning symptoms as discussed. Scripts Amoxicillin (AMOXICILLIN) 500 Mg Capsule 2 CAP PO TID for otitis media for 7 Days, #40 CAP Prov: CASEY WHITE MD 07/19/21 Problem Qualifiers CASEY WHITE MD Jul 19, 2021 10:31
[2021-07-19] MEDS: diphenhydrAMINE HCL 25 MG CAPSULE PO ONE (10:35)
[2021-07-19] MEDS: IBUPROFEN 800 MG TABLET. PO ONE (10:35)
[2021-07-19] MEDS: AMOXICILLIN 250 MG CAPSULE PO ONE (10:35)
[2021-07-19] MEDS: ACETAMINOPHEN 500 MG TABLET PO ONE (10:35)
== END 2021-07-19 10:45 | disposition home or self-care (01) ==
LOC: ER 10:14
DX: H66.92 Otitis media, unspecified, left ear (principal); R09.81 Nasal congestion; J45.909 Unspecified asthma, uncomplicated; F17.210 Nicotine dependence, cigarettes, uncomplicated
CPT/HCPCS: 99284; Q0163

== ENCOUNTER 2021-08-03 17:58 | Emergency (ER) | payer SELFPAY ==
[~2021-08-03 17:58] MED LIST changes: +AMOX500C PO
== END 2021-08-03 20:05 | disposition left against medical advice (07) ==
LOC: ER 17:58
DX: R51.9 Headache, unspecified (principal); Z53.21 Procedure and treatment not carried out due to patient leaving prior to being seen by health care provider

== ENCOUNTER 2021-08-04 08:55 | Inpatient (IN) | payer SELFPAY ==
[~2021-08-04] VITALS: Ht 157.5 cm; Wt 78.5 kg
--- NOTE | 2021-08-04 10:01 | PHYS DOC ---
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 Patient states it feels like something is sitting on his chest, feels similar to previous NSTEMI he had about 1 year ago. He states that he noticed when his woke him up from sleep, was not present when he went to bed. Patient states he also has a left-sided headache and eye redness. Patient states that the pain feels like an ice pick on the left side of his head and came on suddenly yesterday after he got off work. Denies any eye pain or vision changes, but does feel like there is some pressure in his eye. Denies any nausea, vomiting, diarrhea. Denies any cough or shortness of breath. Patient states he had a little bit of swelling in both of his feet yesterday. Taking aspirin and other medication that he does not member the name of for his high blood pressure. Has a family history of multiple MIs. Patient smokes 6 to 7 cigarettes daily, occasional alcohol use, denies drugs. Has not followed up with cardiology since his NSTEMI. Patient states he recently completed a course of antibiotics for an ear infection. Review of Systems: Review of Systems: All other systems within normal limits except for as noted in the HPI Allergies: Allergies: Allergies Coded Allergies Type Severity Reaction Last Updated Verified No Known Drug Allergies 09/02/20 No Physical Exam: PE: Constitutional: Well developed, well nourished, no acute distress, non-toxic ap pearance. [] HENT: Normocephalic, atraumatic, bilateral external ears normal, nose normal. Fluid behind left TM, TM injected. No mastoid tenderness or bogginess Eyes: PERRLA, conjunctiva normal, no discharge. Injection of left conjunctiva, no foreign body, abrasions, Priscila sign. IOP less than 20 in both eyes on 3 readings [] Neck: No rigidity, supple, no stridor. [] Cardiovascular: Regular rate and rhythm, brisk cap refill [] Lungs & Thorax: Non labored symmetric respirations, no tachypnea or respiratory distress [] Abdomen: Soft, nondistended. Skin: Warm, dry, no erythema, no rash. [] Back: Unremarkable Extremities: No deformities, range of motion grossly intact, no lower extremity edema [] Neurologic: Alert and oriented X 3, no focal deficits noted. [] Psychologic: Affect normal, judgement normal, mood normal. [] Current Patient Data: Vital Signs: Vital Signs Date Time Temp Pulse Resp B/P (MAP) Pulse Ox O2 Delivery O2 Flow Rate FiO2 08/04/21 09:17 97.8 92 18 135/104 (114) 95 Room Air EKG: EK: Sinus rhythm, heart rate 90 bpm, normal axis, no ST elevation or depression, no ectopy, normal intervals [] 1400: Sinus rhythm, heart rate 85 bpm, no STEMI, no changes from previous ECG Radiology/Procedures: Radiology/Procedures: [place] [address] IMAGING REPORT Signed PATIENT: ALLI CAST ACCOUNT: [id number] : 1980 LOCATION: ER AGE: 40 SEX: M EXAM STATUS: REG ER ORD. PHYSICIAN: ANNIE HILL MD REASON: left headache PROCEDURE: CT HEAD WO CONTRAST EXAMINATION: CT HEAD/BRAIN WO CLINICAL HISTORY: Left-sided headache. TECHNIQUE: Serial axial images without IV contrast were obtained from the vertex to the foramen magnum. CT Dose Reduction Employed: One or more of the following individualized dose reduction techniques were utilized for this examination: 1. Automated exposure control 2. Adjustment of the mA and/or kV according to patient size 3. Use of iterative reconstruction technique. COMPARISON: 07/22/2020 FINDINGS: Acute Change: No evidence of an acute infarct or other acute parenchymal process. Hemorrhage: No evidence of acute intracranial hemorrhage. Mass Lesion/Mass Effect: No evidence of intracranial mass or extraaxial fluid collection. No significant mass effect. Parenchyma: Parenchyma within normal limits for age. Ventricles: Ventricles within normal limits for age. Paranasal Sinuses and Skull Base: Mild secretions in the frontal and ethmoid sinuses. Opacified left mastoid air cells. Visualized skull base and soft tissues unremarkable. IMPRESSION: No evidence of acute intracranial abnormality. Left mastoid effusion, nonspecific but can be seen with otomastoiditis. Mild secretions in the frontal and ethmoid sinuses. Electronically signed by: Dilan Raman DO (08/04/2021 10:37 AM) [id number] DICTATED AND SIGNED BY: DILAN RAMAN DO DATE: 08/04/21 1035 CC: ANNIE HILL MD; PCP,NO ~ [address] [address] IMAGING REPORT Signed PATIENT: ALLI CAST ACCOUNT: [id number] : 1980 LOCATION: ER AGE: 40 SEX: M EXAM STATUS: REG ER ORD. PHYSICIAN: ANNIE HILL MD REASON: chest pain PROCEDURE: CHEST PA & LATERAL EXAMINATION: XR CHEST 2V CLINICAL HISTORY: Chest pain. EXAM DATE/TIME: 08/04/2021 10:22 AM COMPARISON: 05/17/2021 FINDINGS: Lines, Tubes, and Devices: None. Cardiomediastinal Silhouette: Heart size at upper limits of normal, similar to prior study. Lungs and Pleura: No evidence of focal airspace consolidation or pleural effusion. Pulmonary vasculature unremarkable. Bones and Soft Tissues: Degenerative changes in the thoracic spine. IMPRESSION: No evidence of acute cardiopulmonary abnormality or significant interval change. Electronically signed by: Dilan Raman DO (08/04/2021 10:42 AM) [id number] DICTATED AND SIGNED BY: DILAN RAMAN DO DATE: 08/04/21 1041 CC: ANNIE HILL MD; PCP,NO ~ [address] [address] IMAGING REPORT Signed PATIENT: ALLI CAST ACCOUNT: [id number] : 1980 LOCATION: ER AGE: 40 SEX: M EXAM STATUS: REG ER ORD. PHYSICIAN: ANNIE HILL MD REASON: pancreatitis-given 75 ml omni 300 PROCEDURE: CT ABD PELV W/ IV CONTRST ONLY CT ABDOMEN+PELVIS W History: pancreatitis Comparison: None. Technique: After administration of intravenous contrast, helical CT of the abdomen and pelvis was performed from the lung bases through the ischial tuberosities. Coronal and sagittal reconstructions were obtained. 75 mL of Omnipaque 300 were used. One or more of the following dose reduction techniques were utilized: Automated exposure control (AEC), Adjustment of mA and/or kV according to patient size, Use of iterative reconstruction technique such as ASiR, CT scan done according to ALARA and image gently/image wisely Abdomen Findings: The visualized lung bases are clear. The liver, gallbladder, pancreas, spleen, and bilateral adrenal glands are normal. Symmetric renal enhancement. There is no focal renal mass. There is no hydronephrosis. The visualized loops of small bowel are normal. Colonic diverticulosis. There is no evidence of bowel obstruction. Appendix is is not seen. There is no free fluid. There is no mesenteric or retroperitoneal adenopathy. The abdominal aorta is normal in caliber. Pelvis Findings: Urinary bladder is normal. No pelvic free fluid. There is no pelvic or inguinal adenopathy. There is no acute bony abnormality. IMPRESSION: 1. No acute findings. No peripancreatic inflammation or fluid collection. 2. Colonic diverticulosis Electronically signed by: Jenelle Weber MD (08/04/2021 2:54 PM) [facility] DICTATED AND SIGNED BY: JENELLE WEBER MD DATE: 08/04/21 145 CC: ANNIE HILL MD; PCP,NO ~ Heart Score: C/O Chest Pain: Yes HEART Score for Chest Pain: HEART Score for Chest Pain Response (Comments) Value History Highly Suspicious 2 ECG Normal 0 Age < 45 0 Risk Factors >3 Risk Factors or Hx CAD 2 Troponin < Normal Limit 0 Total 4 Risk Factors: Risk Factors: DM, Current or recent (<one month) smoker, HTN, HLP, family history of CAD, obesity. Risk Scores: Score 0 - 3: 2.5% MACE over next 6 weeks - Discharge Home Score 4 - 6: 20.3% MACE over next 6 weeks - Admit for Clinical Observation Score 7 - 10: 72.7% MACE over next 6 weeks - Early Invasive Strategies Course & Med Decision Making: Course & Med Decision Making Pertinent Labs and Imaging studies reviewed. (See chart for details) Chest pain relieved with 1 sublingual nitroglycerin [] Discussed mastoiditis finding on CT with Dr. Tran. Recommend patient started on clindamycin he can follow-up as an outpatient. Patient admitted to Dr. Panda Espino Disclaimer: Kenzie Disclaimer: This electronic medical record was generated, in whole or in part, using a voice recognition dictation system. Departure Departure: Impression: Primary Impression: Mastoiditis of left side Additional Impressions: Chest pain Conjunctivitis Pancreatitis Disposition: ADMITTED INPATIENT Admitting Physician: Evelin Mosqueda Condition: STABLE Referrals: PCP,NO (PCP) Additional Instructions: Call Dr. Tran to schedule an ENT follow-up appointment for left otomastoiditis Freddie Tran DO [address] [place] [id number] ANNIE HILL MD Aug 04, 2021 10:01
[2021-08-04] MEDS ORDERED: FLUORESCEIN 1MG EYE STRIP. OS ONE (10:30)
[2021-08-04] MEDS ORDERED: ASPIRIN CHEWABLE 81 MG TABLET. PO ONE (10:30)
[2021-08-04] MEDS ORDERED: TETRACAINE 0.5% OPHTH SOLUTION 4ML BOTTLE. OS ONE (10:30)
[2021-08-04] MEDS ORDERED: PANTOPRAZOLE IV 40 MG VIAL. IVP ONE (10:30)
--- NOTE | 2021-08-04 10:37 | EKG ---
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
[2021-08-04] MEDS: NITROGLYCERIN SUBLINGUAL 0.4 MG BOTTLE OF 25. SL PRN ×2 (10:39→10:43)
--- NOTE | 2021-08-04 10:40 | RAD ---
EXAMINATION: CT HEAD/BRAIN WO CLINICAL HISTORY: Left-sided headache. TECHNIQUE: Serial axial images without IV contrast were obtained from the vertex to the foramen magnu m. CT Dose Reduction Employed: One or more of the following individualized dose reduction techniques wer e utilized for this examination: 1. Automated exposure control 2. Adjustment of the mA and/or kV ac cording to patient size 3. Use of iterative reconstruction technique. COMPARISON: 07/22/2020 FINDINGS: Acute Change: No evidence of an acute infarct or other acute parenchymal process. Hemorrhage: No evidence of acute intracranial hemorrhage. Mass Lesion/Mass Effect: No evidence of intracranial mass or extraaxial fluid collection. No signific ant mass effect. Parenchyma: Parenchyma within normal limits for age. Ventricles: Ventricles within normal limits for age. Paranasal Sinuses and Skull Base: Mild secretions in the frontal and ethmoid sinuses. Opacified left mastoid air cells. Visualized skull base and soft tissues unremarkable. IMPRESSION: No evidence of acute intracranial abnormality. Left mastoid effusion, nonspecific but can be seen with otomastoiditis. Mild secretions in the frontal and ethmoid sinuses. Electronically signed by: Dilan Penny DO (08/04/2021 10:37 AM) [id number]
--- NOTE | 2021-08-04 10:44 | RAD ---
EXAMINATION: XR CHEST 2V CLINICAL HISTORY: Chest pain. EXAM DATE/TIME: 08/04/2021 10:22 AM COMPARISON: 05/17/2021 FINDINGS: Lines, Tubes, and Devices: None. Cardiomediastinal Silhouette: Heart size at upper limits of normal, similar to prior study. Lungs and Pleura: No evidence of focal airspace consolidation or pleural effusion. Pulmonary vasculat ure unremarkable. Bones and Soft Tissues: Degenerative changes in the thoracic spine. IMPRESSION: No evidence of acute cardiopulmonary abnormality or significant interval change. Electronically signed by: Dilan Penny DO (08/04/2021 10:42 AM) [id number]
[2021-08-04 10:57] LABS: BASO # 0.1 x10^3/uL (0.0-0.2); BASO % 1 % (0-3); EOS # 0.3 x10^3/uL (0.0-0.7); EOS % 5 % (0-3); HEMATOCRIT 44.1 % (39.0-53.0); HEMOGLOBIN 14.6 g/dL (13.0-17.5); LYMPH # 1.9 x10^3/uL (1.0-4.8); LYMPH % 34 % (24-48); MEAN CORPUSCULAR HEMOGLOBIN 30 pg (25-35); MEAN CORPUSCULAR HGB CONC 33 g/dL (31-37); MEAN CORPUSCULAR VOLUME 92 fL (79-100); MONO # 0.4 x10^3/uL (0.0-1.1); MONO % 6 % (0-9); NEUT % 53 % (31-73); PLATELET COUNT 280 x10^3/uL (140-400); RED BLOOD COUNT 4.82 x10^6/uL (4.30-5.70); RED CELL DISTRIBUTION WIDTH 14.4 % (11.5-14.5); WHITE BLOOD COUNT 5.6 x10^3/uL (4.0-11.0)
[2021-08-04 10:59] LABS: CALCIUM 8.9 mg/dL (8.5-10.1); CREATININE 1.2 mg/dL (0.7-1.3); GFR 66.7; POTASSIUM 4.4 mmol/L (3.5-5.1)
[2021-08-04 11:12] LABS: ALBUMIN 3.4 g/dL (3.4-5.0); MAGNESIUM 1.9 mg/dL (1.8-2.4); TOTAL BILIRUBIN 0.2 mg/dL (0.2-1.0); TOTAL PROTEIN 6.8 g/dL (6.4-8.2)
[2021-08-04] MEDS ORDERED: POLYMYXIN/TRIMETHOPRIM OPHTH SOLUTION 10ML BOTTLE. OS ONE (12:30)
[2021-08-04 12:50] LABS: BARBITURATES NEG (NEG); BENZODIAZEPINES NEG (NEG); CANNABINOIDS POS (NEG); COCAINE NEG (NEG); METHADONE NEG (NEG); OPIATES NEG (NEG); PHENCYCLIDINE NEG (NEG)
[2021-08-04 13:02] LABS: AMPHETAMINE/METHAMPHETAMINE NEG (NEG)
[2021-08-04 13:12] LABS: BACTERIA,URINE FEW /HPF (0-FEW); CLARITY,URINE CLEAR; COLOR,URINE YELLOW; GLUCOSE,URINE NEG (NEG); NITRITE,URINE NEG (NEG); SQUAMOUS EPITHELIAL CELL,UR OCC /LPF; UROBILINOGEN,URINE 0.2 mg/dL (0.2 mg/dL)
[2021-08-04] MEDS ORDERED: IOHEXOL 300 MG/ML 75 ML VIAL. IV ONE (14:00)
--- NOTE | 2021-08-04 14:07 | EKG ---
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
[2021-08-04] MEDS ORDERED: KETOROLAC 15 MG/ML VIAL. IVP ONE (14:15)
--- NOTE | 2021-08-04 14:57 | RAD ---
CT ABDOMEN+PELVIS W History: pancreatitis Comparison: None. Technique: After administration of intravenous contrast, helical CT of the abdomen and pelvis was per formed from the lung bases through the ischial tuberosities. Coronal and sagittal reconstructions wer e obtained. 75 mL of Omnipaque 300 were used. One or more of the following dose reduction techniques were utilized: Automated exposure control (AEC), Adjustment of mA and/or kV according to patient size , Use of iterative reconstruction technique such as ASiR, CT scan done according to ALARA and image g ently/image wisely Abdomen Findings: The visualized lung bases are clear. The liver, gallbladder, pancreas, spleen, and bilateral adrenal glands are normal. Symmetric renal enhancement. There is no focal renal mass. There is no hydronephrosis. The visualized loops of small bowel are normal. Colonic diverticulosis. There is no evidence of bowel obstruction. Appendix is is not seen. There is no free fluid. There is no mesenteric or retroperitoneal adenopathy. The abdominal aorta is normal in caliber. Pelvis Findings: Urinary bladder is normal. No pelvic free fluid. There is no pelvic or inguinal adenopathy. There is no acute bony abnormality. IMPRESSION: 1. No acute findings. No peripancreatic inflammation or fluid collection. 2. Colonic diverticulosis Electronically signed by: Zion Weber MD (08/04/2021 2:54 PM) [facility]
[2021-08-04] MEDS ORDERED: ONDANSETRON PF 4 MG/2 ML VIAL. IVP PRN ×2 (15:15→17:00)
[2021-08-04] MEDS ORDERED: ACETAMINOPHEN 325 MG TABLET PO PRN (15:15)
[2021-08-04] MEDS ORDERED: NITROGLYCERIN SUBLINGUAL 0.4 MG BOTTLE OF 25. SL PRN (15:15)
[2021-08-04] MEDS ORDERED: MORPHINE SULFATE 4 MG/ML DISP.SYRIN. IVP PRN (15:15)
[2021-08-04 17:52] VITALS: BP 158/114
[2021-08-04] MEDS: IV NORMAL SALINE 1,000ML 1,000 ML IV SCH (18:20)
[2021-08-04] MEDS ORDERED: LABETALOL 20 MG/4 ML DISP.SYRIN. IVP PRN (18:45)
[2021-08-04] MEDS ORDERED: cloNIDine TTS-2 1 PATCH PATCH TD SCH (19:00)
[2021-08-04 19:42] VITALS: BP 140/103
[2021-08-04 23:45] VITALS: BP 122/79
[2021-08-05] MEDS: IV NORMAL SALINE 1,000ML 1,000 ML IV SCH ×2 (00:44→13:48)
[2021-08-05 05:38] VITALS: BP 132/70
[2021-08-05 06:09] LABS: BASO # 0.1 x10^3/uL (0.0-0.2); BASO % 1 % (0-3); EOS # 0.3 x10^3/uL (0.0-0.7); EOS % 5 % (0-3); HEMATOCRIT 41.8 % (39.0-53.0); HEMOGLOBIN 13.7 g/dL (13.0-17.5); LYMPH # 1.9 x10^3/uL (1.0-4.8); LYMPH % 31 % (24-48); MEAN CORPUSCULAR HEMOGLOBIN 30 pg (25-35); MEAN CORPUSCULAR HGB CONC 33 g/dL (31-37); MEAN CORPUSCULAR VOLUME 92 fL (79-100); MONO # 0.5 x10^3/uL (0.0-1.1); MONO % 8 % (0-9); NEUT # 3.5 x10^3uL (1.8-7.7); NEUT % 56 % (31-73); PLATELET COUNT 256 x10^3/uL (140-400); RED BLOOD COUNT 4.55 x10^6/uL (4.30-5.70); RED CELL DISTRIBUTION WIDTH 14.4 % (11.5-14.5); WHITE BLOOD COUNT 6.2 x10^3/uL (4.0-11.0)
[2021-08-05 06:29] LABS: ALBUMIN 2.9 g/dL (3.4-5.0); CALCIUM 7.8 mg/dL (8.5-10.1); CREATININE 1.2 mg/dL (0.7-1.3); GFR 66.7; POTASSIUM 4.4 mmol/L (3.5-5.1); TOTAL BILIRUBIN 0.3 mg/dL (0.2-1.0); TOTAL PROTEIN 5.9 g/dL (6.4-8.2)
[2021-08-05] MEDS ORDERED: LIDO:MAALOX 1:1 20 ML SINGLE DOSE. PO PRN (07:00)
[2021-08-05 11:14] VITALS: BP 135/77
--- NOTE | 2021-08-05 16:15 | HP ---
DATE OF SERVICE: 08/05/2021 ADMIT DATE: 08/05/2021 HISTORY OF PRESENT ILLNESS: The patient is a 40-year-old male patient who presented to the Emergency Room of [facility] with a complaint of headache, chest pain that started about an hour. Prior to arrival to the Emergency Room, the pain was mostly in the left side of his chest radiating to his left forearm. Stated that he feels like something is sitting on his chest. It is similar to previous non-ST segment elevation myocardial infarction that he had about a year ago. He stated that he noticed when his woke him up from sleep, he was not present when he went to bed. He also stated that he has left-sided headache and eye redness. The patient states that the pain feels like an ice pick in the left side of his head and came on suddenly yesterday after he got off work. Denied any eye pain or vision changes. He does feel like there is some pressure in his eye. He denies any nausea, vomiting, diarrhea. Denied any cough, shortness of breath. He states that he had a little bit of swelling in both of his feet yesterday taking aspirin and other medication that he does not remember, but has high blood pressure, has family history of multiple MIs. He continues to smoke 6-7 cigarettes a day, uses alcohol occasionally. He denies any drugs. He was extensively investigated in the Emergency Room and has had lab work and imaging studies. His initial lab work showed his white cell count was normal at 5.6 with normal hemoglobin, hematocrit and platelets. His chemistry was essentially unremarkable except for his serum lipase, slightly elevated at 429. His first set of cardiac enzyme was troponin I high sensitivity of 10. The patient was admitted with acute pancreatitis, kept n.p.o. and started on IV fluid, IV pain medication, antiemetic. We also ordered 2 more sets of cardiac enzyme and to repeat his labs again. PAST MEDICAL HISTORY: Significant for coronary artery disease, status post non-ST segment elevation myocardial infarction. The patient underwent cardiac catheterization with no stent deployment hypertension and bronchial asthma. PAST SURGICAL HISTORY: Significant for appendectomy, left wrist fracture status post open reduction and internal fixation, left heart catheterization. ALLERGIES: He has no known drug allergies. MEDICATIONS: He is on amlodipine 10 mg once a day and a baby aspirin 81 mg once a day. He apparently was on apixaban and multiple other medications that he is no longer on now. FAMILY HISTORY: He has one sister, younger and healthy. Mother at age of 52, the cause of is unknown. Father is still alive at the age of 62 and has cerebrovascular accident with left-sided weakness. SOCIAL HISTORY: He is , has 5 children, with him and his . He smokes 1 pack a day, drinks alcohol very occasionally. Used to smoke marijuana. 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 PHYSICAL EXAMINATION: GENERAL: On arrival to the Emergency Room, he looked well and was clearly in no apparent respiratory distress. No pallor, jaundice, cyanosis or thyromegaly. No jugular venous distention. No limb edema. VITAL SIGNS: His heart rate was 92, blood pressure was 135/104, temperature was 97.8, respiratory rate was 18 and oxygen saturation was 95%. HEAD, EYES, EARS, NOSE, AND THROAT: Normocephalic, atraumatic. NECK: Supple. HEART: Normal first and second heart sounds. No gallop, rub or murmur. CHEST: Clear to auscultation, no crepitation or rhonchi. ABDOMEN: Distended, soft, nontender. NEUROLOGIC: He was grossly intact. LABORATORY DATA: His lab work on admission showed a white cell count of 5.6, hemoglobin 14, hematocrit 44, MCV 92 and platelet count of 280,000 with normal manual differential. His chemistry showed a serum sodium 139, potassium 4.4, chloride 102, bicarbonate 29, anion gap of 8, BUN 15, creatinine 1.2. Estimated GFR was 66 mL per minute. His glucose 95, calcium was 8.9, magnesium was 1.9. Total bilirubin, AST, ALT, alkaline phosphatase were normal. His first set of troponin I high sensitivity was 10, beta natriuretic peptide was 34. Total protein 6.8, albumin 3.4. His serum lipase was 429. His prothrombin time, INR and APTT and D-dimer are all normal. Urinalysis essentially unremarkable and toxic screen essentially was positive for cannabinoids. ASSESSMENT AND PLAN: The patient was admitted with acute pancreatitis. He was started on IV fluid, IV pain medication and antiemetic. Once the pain improves and his lipase trends down, we will start him on a clear liquid and advance as tolerated. NILES/CHACHO DR: Pamela TID: [id number]
[2021-08-05] MEDS ORDERED: LACTOBACILLUS RHAMNOSUS GG 1 CAPSULE. PO SCH (21:00)
--- NOTE | 2021-08-05 22:40 | DS ---
DATE OF DISCHARGE: 08/05/2021 HOSPITAL COURSE: The patient was admitted with acute pancreatitis, was kept n.p.o. and IV fluid, pain management and antiemetic. His lab work showed that his serum lipase has risen, initially went up to 971 and came down this morning to 867, this afternoon at 450. The patient has no abdominal pain. He was initially started on a clear liquid that was advanced to a regular diet and he tolerated it very well without any problem. He has had no more abdominal pain and a decision was made to discharge him home with a clear instruction to avoid any alcohol. PHYSICAL EXAMINATION: GENERAL: When I saw him this afternoon, he looked well and was clearly in no apparent respiratory distress. No pallor, jaundice, cyanosis, or thyromegaly. No jugular venous distention. No limb edema. VITAL SIGNS: His heart rate was 93, blood pressure was 135/77, temperature was 98, respiratory rate 20, and oxygen saturation was 94%. The rest of the physical exam is stable, has not changed. LABORATORY DATA: His white cell count was 6.2, hemoglobin 13.7, hematocrit 42, MCV 92, and platelet count 256,000 with normal manual differential. Serum sodium 143, potassium 4.4, chloride 107, bicarbonate 27, anion gap of 9, BUN 18, and creatinine 1.2. Estimated GFR was 66 mL per minute. His glucose was 97, calcium was 7.8. Total bilirubin, AST, ALT, alkaline phosphatase were normal. Total protein 5.9, albumin was 2.9. His most recent serum lipase was 450. DISCHARGE MEDICATIONS: The patient was discharged home to continue on his amlodipine 10 mg once a day and aspirin 81 mg. He was also counseled about quitting smoking as he already has [id number] elevation myocardial infarction. NILES/MY DR: Pamela TID: [id number]
== END 2021-08-05 15:45 | disposition home or self-care (01) | DRG 440 ==
LOC: ER 08:55 → ER HOLD 15:05 → 1 SOUTH 16:45 → OBSVTOIN 08-05 00:05
PROVIDERS: ADMIT Internal Medicine; ATTEND Internal Medicine
DX: K85.90 Acute pancreatitis without necrosis or infection, unspecified (principal); F17.210 Nicotine dependence, cigarettes, uncomplicated; H70.92 Unspecified mastoiditis, left ear; I25.10 Atherosclerotic heart disease of native coronary artery without angina pectoris; J45.909 Unspecified asthma, uncomplicated; K57.30 Diverticulosis of large intestine without perforation or abscess without bleeding; Z20.822 Contact with and (suspected) exposure to COVID-19; I25.2 Old myocardial infarction; Z90.49 Acquired absence of other specified parts of digestive tract
CPT/HCPCS: 36415; 70450; 71046; 74177; 80053; 80307; 81001; 83690; 83735; 83880; 84484; 85025; 85379; 85610; 87426; 93005; 96374; 96375; G0378; G0379; J0696; J1885; J2405; J3010; J3490; Q9967; U0003; 99285-25; J7030

== ENCOUNTER 2021-08-10 14:10 | Inpatient (IN) | payer SELFPAY ==
[~2021-08-10] VITALS: Ht 160 cm; Wt 76.9 kg
[2021-08-10] MEDS ORDERED: ASPIRIN 325 MG TABLET PO ONE (14:30)
[2021-08-10] MEDS ORDERED: FAMOTIDINE 20 MG/2 ML VIAL IVP ONE (14:30)
[2021-08-10] MEDS ORDERED: ONDANSETRON PF 4 MG/2 ML VIAL. IVP ONE (14:30)
[2021-08-10] MEDS ORDERED: IV NORMAL SALINE 1,000ML 1,000 ML IV ONE (14:30)
[2021-08-10] MEDS ORDERED: IOHEXOL 350 MG/ML 100 ML VIAL. IV ONE (14:45)
--- NOTE | 2021-08-10 14:54 | PHYS DOC ---
Past History Past Medical History: Asthma, CAD, Pancreatitis, Other Additional Past Medical Histor: Blood clots in brain Past Surgical History: Appendectomy, Other Additional Past Surgical Histo: ORIF wrist Smoking: Cigarettes Alcohol Use: Occasionally Drug Use: Marijuana General Adult EDM: Chief Complaint: CHEST PAIN HPI: HPI: Pt is a 40 yo M who presents to the ED c/o CP for a couple hours. Pt reports associated diaphoresis, nausea, and dyspnea on exertion. Pt describes the pain as pressure and states it radiates to his left arm and jaw. Pt reports multiple episodes of diarrhea this morning. Pt was discharged from this facility a few days ago after being admitted for pancreatitis. Pt states he does not know what caused the pancreatitis. States he took his BP at home and it was very high and his pulse was 160. Pt took nitro at home. He denies fever, chills, or vomiting. Review of Systems: Review of Systems: Constitutional: Denies fever or chills Eyes: Denies redness or eye pain HENT: Denies nasal congestion or sore throat Respiratory: Denies cough or sputum production Cardiovascular: Reports chest pain, palpitations, diaphoresis, dyspnea on exertion GI: Denies vomiting; Reports nausea and abd pain : Denies dysuria or hematuria Musculoskeletal: Denies back pain or joint pain Integument: Denies rash or skin lesions Neurologic: Denies headache, focal weakness or sensory changes Complete systems were reviewed and found to be within normal limits, except as documented in this note. Current Medications: Current Meds: Current Medications Medications (Trade) Dose Ordered Sig/[facility] Start Time Stop Time Status Last Admin Dose Admin Aspirin (Mu Aspirin) 325 mg 1X ONCE 08/10/21 14:30 08/10/21 14:31 DC Famotidine (Pepcid Vial) 20 mg 1X ONCE 08/10/21 14:30 08/10/21 14:31 DC Fentanyl Citrate (Fentanyl 2ml Vial) 75 mcg 1X ONCE 08/10/21 14:30 08/10/21 14:31 DC Iohexol (Omnipaque 350 Mg/ml) 100 ml 1X ONCE 08/10/21 14:45 08/10/21 14:46 UNV Ondansetron HCl (Zofran) 4 mg 1X ONCE 08/10/21 14:30 08/10/21 14:31 DC Sodium Chloride 1,000 ml @ 1,000 mls/hr 1X ONCE 08/10/21 14:30 08/10/21 15:29 Allergies: Allergies: Allergies Coded Allergies Type Severity Reaction Last Updated Verified No Known Drug Allergies 09/02/20 No Physical Exam: PE: Constitutional: Well developed, well nourished, no acute distress, non-toxic appearance HENT: Normocephalic, atraumatic Eyes: Conjunctiva normal, no discharge Neck: Normal range of motion, supple Lungs & Thorax: No respiratory distress, equal chest rise and fall CV: Regular rhythm, tachycardic rate, no murmurs rubs or gallops Abdomen: Soft, mildly distended, generalized tenderness to palpation Skin: Warm, diaphoretic, no erythema, no rash Back: No tenderness, no CVA tenderness Extremities: No tenderness, ROM intact, no edema Neurologic: Alert and oriented X 3, normal motor function, normal sensory function, no focal deficits noted Psychologic: Affect normal, judgment normal Current Patient Data: Vital Signs: Vital Signs Date Time Temp Pulse Resp B/P (MAP) Pulse Ox O2 Delivery O2 Flow Rate FiO2 08/10/21 14:21 97.2 128 16 145/99 (114) 95 Room Air EKG: EKG: @[address] elevation NM-116 QTc- 418 Radiology/Procedures: Radiology/Procedures: PROCEDURE: CT ANGIOGRAPHY CHEST Examination: CT angiography chest with IV contrast HISTORY: History of pleuritic chest pain COMPARISON: 05/17/2021 TECHNIQUE: Axial CT angiographic images of chest were performed with IV contrast. Coronal and Sagittal 3-D MIP reformats are performed without contrast. Exposure: One or more of the following individualized dose reduction techniques were utilized for this examination: 1. Automated exposure control 2. Adjustment of the mA and/or kV according to patient size 3. Use of iterative reconstruction technique FINDINGS: The visualized thyroid gland grossly appears unremarkable. Mild coronary artery calcifications. Central airways are patent. There is no contrast in the pulmonary arterial branches for evaluation of pulmonary embolus. The ascending aorta measures 4.3 cm in transverse dimension likely aneurysmal change. Trace pe ricardial effusion. No radiologically significant mediastinal lymphadenopathy. The lungs are clear. Mild decreased attenuation noted in the liver likely hepatic steatosis. The spleen, adrenals grossly appears unremarkable The stomach is mildly distended. The visualized pancreas grossly appears unremarkable. No evidence of lytic bony destructive lesion. IMPRESSION: 1. There is not enough contrast within the pulmonary arterial branches for evaluation of pulmonary embolism. 2. Mild aneurysmal change ascending aorta. 3. Trace pericardial effusion. 4. Mild hepatic steatosis. Electronically signed by: Fidel Post MD (08/10/2021 3:16 PM) [id number] Heart Score: C/O Chest Pain: Yes HEART Score for Chest Pain: HEART Score for Chest Pain Response (Comments) Value History Moderately Suspicious 1 ECG Normal 0 Age < 45 0 Risk Factors >3 Risk Factors or Hx CAD 2 Troponin < Normal Limit 0 Total 3 Risk Factors: Risk Factors: DM, Current or recent (<one month) smoker, HTN, HLP, family history of CAD, obesity. Risk Scores: Score 0 - 3: 2.5% MACE over next 6 weeks - Discharge Home Score 4 - 6: 20.3% MACE over next 6 weeks - Admit for Clinical Observation Score 7 - 10: 72.7% MACE over next 6 weeks - Early Invasive Strategies Course & Med Decision Making: Course & Med Decision Making Pertinent Labs and Imaging studies reviewed. (See chart for details) Pt is a 40 yo M who presents c/o CP concern for ACS/VTE/pancreatitis. Hx of recent admission for pancreatitis. CBC/CMP/Lipase ordered and stable CTA chest ordered Pt given pepcid/zofran/IVF/fentanyl with interval improvement. CTA was suboptimal for evaluation of PE but showed aneurysm unchanged from May 2021 study. Notified pt and gave pt printout of report. Advised pt to follow closely with his PCP for further/future re-evaluation. HEART score 3. Patient requiring admission for further evaluation and treatment. Discussed with Dr. Mosqueda (hospitalist) who is in agreement with admission. Discussed findings and plan with patient, who acknowledges understanding and agreement. Dragon Disclaimer: Dragon Disclaimer: This electronic medical record was generated, in whole or in part, using a voice recognition dictation system. Departure Departure: Impression: Primary Impression: Chest pain Qualified Codes: R07.9 - Chest pain, unspecified Additional Impression: Hx of pancreatitis Disposition: ADMITTED INPATIENT Admitting Physician: Evelin Mosqueda Condition: STABLE Referrals: PCP,NO (PCP) Scripts No Active Prescriptions or Reported Meds RODOLFO MOORE DO Aug 10, 2021 14:53
--- NOTE | 2021-08-10 15:19 | RAD ---
Examination: CT angiography chest with IV contrast HISTORY: History of pleuritic chest pain COMPARISON: 05/17/2021 TECHNIQUE: Axial CT angiographic images of chest were performed with IV contrast. Coronal and Sagitta l 3-D MIP reformats are performed without contrast. Exposure: One or more of the following individualized dose reduction techniques were utilized for thi s examination: 1. Automated exposure control 2. Adjustment of the mA and/or kV according to patient size 3. Use of iterative reconstruction technique FINDINGS: The visualized thyroid gland grossly appears unremarkable. Mild coronary artery calcifications. Centr al airways are patent. There is no contrast in the pulmonary arterial branches for evaluation of pulm onary embolus. The ascending aorta measures 4.3 cm in transverse dimension likely aneurysmal change. Trace pericardial effusion. No radiologically significant mediastinal lymphadenopathy. The lungs are clear. Mild decreased attenuation noted in the liver likely hepatic steatosis. The spleen, adrenals grossly appears unremarkable The stomach is mildly distended. The visualized pancreas grossly appears unremarkable. No evidence of lytic bony destructive lesion. IMPRESSION: 1. There is not enough contrast within the pulmonary arterial branches for evaluation of pulmonary e mbolism. 2. Mild aneurysmal change ascending aorta. 3. Trace pericardial effusion. 4. Mild hepatic steatosis. Electronically signed by: Fidel Post MD (08/10/2021 3:16 PM) [place] [id number]
[2021-08-10 15:28] LABS: BASO % 1 % (0-3); EOS # 0.1 x10^3/uL (0.0-0.7); EOS % 1 % (0-3); HEMATOCRIT 38.7 % (39.0-53.0); HEMOGLOBIN 13.1 g/dL (13.0-17.5); LYMPH % 15 % (24-48); MEAN CORPUSCULAR HEMOGLOBIN 31 pg (25-35); MEAN CORPUSCULAR HGB CONC 34 g/dL (31-37); MEAN CORPUSCULAR VOLUME 91 fL (79-100); MONO # 0.6 x10^3/uL (0.0-1.1); MONO % 9 % (0-9); NEUT # 4.8 x10^3uL (1.8-7.7); NEUT % 75 % (31-73); PLATELET COUNT 253 x10^3/uL (140-400); RED BLOOD COUNT 4.25 x10^6/uL (4.30-5.70); RED CELL DISTRIBUTION WIDTH 14.8 % (11.5-14.5); WHITE BLOOD COUNT 6.5 x10^3/uL (4.0-11.0)
[2021-08-10 15:30] LABS: CALCIUM 8.4 mg/dL (8.5-10.1); CREATININE 1.7 mg/dL (0.7-1.3); GFR 44.6; POTASSIUM 3.8 mmol/L (3.5-5.1)
[2021-08-10 15:47] LABS: ALBUMIN 3.2 g/dL (3.4-5.0); MAGNESIUM 1.8 mg/dL (1.8-2.4); TOTAL BILIRUBIN 0.3 mg/dL (0.2-1.0); TOTAL PROTEIN 6.5 g/dL (6.4-8.2)
[2021-08-10] MEDS ORDERED: ONDANSETRON PF 4 MG/2 ML VIAL. IVP PRN (16:30)
[2021-08-10] MEDS ORDERED: IV NORMAL SALINE 1,000ML 1,000 ML IV SCH (16:30)
[2021-08-10 18:36] VITALS: BP 140/102
[2021-08-10 20:04] VITALS: BP 146/107
[2021-08-10] MEDS ORDERED: amLODIPine BESYLATE 10 MG TABLET PO SCH (21:00)
[2021-08-10 23:00] VITALS: BP 147/103
[2021-08-10] MEDS ORDERED: LOPERAMIDE 2 MG CAPSULE PO PRN (23:00)
[2021-08-11 05:38] VITALS: BP 131/76
--- NOTE | 2021-08-11 06:33 | EKG ---
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
--- NOTE | 2021-08-11 07:43 | PDOC2 ---
CARDIAC CONSULT DATE OF CONSULT DOS: DATE: 08/11/21 TIME: 07:36 REASON FOR CONSULT Reason for Consult Chest pain REFERRING PHYSICIAN Referring Physician Dr. Mosqueda SOURCE Source: Chart review, Patient HPI History of Present Illness This is a 40 yo male who presented secondary to chest pain. Patient reports pain began yesterday afternoon when he was doing dishes. Located in his left chest. Describes as stabbing, pressure in his left chest. Radiated to his left shoulder. Associated with palpitation, felt like his heart was beating fast. Checked vitals and HR was near 150. Also felt dizzy and mildly short of breath. EKG upon arrival with ST. rate 129. Initial labs notable for ARIELLA. Received IV fluids. HR has improved, presently SR. Is feeling well this morning and has had no further chest pain. Recent admission for pancreatitis noted. [facility] 09/18 with mild, nonobstructive CAD. PAST MEDICAL HISTORY Cardiovascular: CAD, HTN Pulmonary: Asthma Hepatobiliary: Other (pancreatitis ) PAST SURGICAL HISTORY Past Surgical History Other (recent tooth extraction, appeandectomy and left wrist laceration repair) FAMILY HISTORY Family History: Diabetes, Heart Disease SOCIAL HISTORY Smoke: <1 pack per day ALCOHOL: occassional Drugs: None Lives: with Family CURRENT MEDICATIONS Current Medications Current Medications Aspirin (Mu Aspirin) 325 mg 1X ONCE PO Last administered on 08/10/21at 15:03; Start 08/10/21 at 14:30; Stop 08/10/21 at 14:31; Status DC Sodium Chloride 1,000 ml @ 1,000 mls/hr 1X ONCE IV Last administered on 08/10/21at 15:00; Start 08/10/21 at 14:30; Stop 08/10/21 at 15:29; Status DC Fentanyl Citrate (Fentanyl 2ml Vial) 75 mcg 1X ONCE IV Last administered on 08/10/21at 15:01; Start 08/10/21 at 14:30; Stop 08/10/21 at 14:31; Status DC Ondansetron HCl (Zofran) 4 mg 1X ONCE IVP Last administered on 08/10/21at 15:00; Start 08/10/21 at 14:30; Stop 08/10/21 at 14:31; Status DC Famotidine (Pepcid Vial) 20 mg 1X ONCE IVP Last administered on 08/10/21at 15:00; Start 08/10/21 at 14:30; Stop 08/10/21 at 14:31; Status DC Iohexol (Omnipaque 350 Mg/ml) 100 ml 1X ONCE IV ; Start 08/10/21 at 14:45; Stop 08/10/21 at 15:06; Status DC Ondansetron HCl (Zofran) 4 mg PRN Q4HRS PRN IVP NAUSEA/VOMITING; Start 08/10/21 at 16:30; Stop 08/11/21 at 16:29 Fentanyl Citrate (Fentanyl 2ml Vial) 50 mcg PRN Q2HR PRN IVP PAIN Last administered on 08/10/21at 20:17; Start 08/10/21 at 16:30 Sodium Chloride 1,000 ml @ 100 mls/hr Q10H IV Last administered on 08/10/21at 20:16; Start 08/10/21 at 16:30; Stop 08/11/21 at 16:29 Amlodipine Besylate (Norvasc) 10 mg QHS PO Last administered on 08/10/21at 20:16; Start 08/10/21 at 21:00 Loperamide HCl (Imodium) 2 mg PRN Q15MIN PRN PO DIARRHEA Last administered on at 22:58; Start 08/10/21 at 23:00 Active Scripts Active No Active Prescriptions or Reported Medications ALLERGIES Allergies: Coded Allergies: No Known Drug Allergies (Unverified , 09/02/20) ROS Review of Systems 14 point ROS conducted with pertinent positives noted above in HPI PHYSICAL EXAM General: Alert, Oriented X3, Cooperative, No acute distress HEENT: Atraumatic Lungs: Clear to auscultation Heart: Regular rate Abdomen: Soft, No tenderness Extremities: No edema, Normal pulses Skin: No rashes, No breakdown Neuro: Normal speech, Sensation intact Psych/Mental Status: Mental status NL, Mood NL MUSCULOSKELETAL: Osteoarthritic changes both hands VITALS Vital Signs Vital Signs Date Time Temp Pulse Resp B/P (MAP) Pulse Ox O2 Delivery O2 Flow Rate FiO2 08/11/21 05:38 97.6 69 20 131/76 (94) 92 Room Air LABS LABS Laboratory Tests Test 08/10/21 15:01 08/10/21 16:40 08/10/21 19:00 White Blood Count 6.5 x10^3/uL (4.0-11.0) Red Blood Count 4.25 x10^6/uL (4.30-5.70) Hemoglobin 13.1 g/dL (13.0-17.5) Hematocrit 38.7 % (39.0-53.0) Mean Corpuscular Volume 91 fL (79-100) Mean Corpuscular Hemoglobin 31 pg (25-35) Mean Corpuscular Hemoglobin Concent 34 g/dL (31-37) Red Cell Distribution Width 14.8 % (11.5-14.5) Platelet Count 253 x10^3/uL (140-400) Neutrophils (%) (Auto) 75 % (31-73) Lymphocytes (%) (Auto) 15 % (24-48) Monocytes (%) (Auto) 9 % (0-9) Eosinophils (%) (Auto) 1 % (0-3) Basophils (%) (Auto) 1 % (0-3) Neutrophils # (Auto) 4.8 x10^3uL (1.8-7.7) Lymphocytes # (Auto) 1.0 x10^3/uL (1.0-4.8) Monocytes # (Auto) 0.6 x10^3/uL (0.0-1.1) Eosinophils # (Auto) 0.1 x10^3/uL (0.0-0.7) Basophils # (Auto) 0.0 x10^3/uL (0.0-0.2) Prothrombin Time 10.2 SEC (9.4-11.4) Prothromb Time International Ratio 1.0 (0.9-1.1) Activated Partial Thromboplast Time 25 SEC (23-33) Sodium Level 138 mmol/L (136-145) Potassium Level 3.8 mmol/L (3.5-5.1) Chloride Level 103 mmol/L (98-107) Carbon Dioxide Level 25 mmol/L (21-32) Anion Gap 10 (6-14) Blood Urea Nitrogen 22 mg/dL (8-26) Creatinine 1.7 mg/dL (0.7-1.3) Estimated GFR (Cockcroft-Gault) 44.6 BUN/Creatinine Ratio 13 (6-20) Glucose Level 89 mg/dL (70-99) Calcium Level 8.4 mg/dL (8.5-10.1) Magnesium Level 1.8 mg/dL (1.8-2.4) Total Bilirubin 0.3 mg/dL (0.2-1.0) Aspartate Amino Transf (AST/SGOT) 32 U/L (15-37) Alanine Aminotransferase (ALT/SGPT) 66 U/L (16-63) Alkaline Phosphatase 77 U/L (46-116) Creatine Kinase 183 U/L (39-308) Creatine Kinase MB (Mass) 1.5 ng/mL (0.0-3.6) Creatine Kinase MB Relative Index 0.8 % (0-4) Troponin I High Sensitivity 26 ng/L (4-75) 36 ng/L (4-75) BO-Jga-P-Type Natriuretic Peptide 38 pg/mL (0-124) Total Protein 6.5 g/dL (6.4-8.2) Albumin 3.2 g/dL (3.4-5.0) Albumin/Globulin Ratio 1.0 (1.0-1.7) Lipase 85 U/L (73-393) SARS-CoV-2 Antigen (Rapid) Negative (NEGATIVE) ECHOCARDIOGRAM Echocardiogram <Conclusion> The left ventricle is normal size. The left ventricular systolic function is normal and the ejection fraction is within normal range. The Ejection Fraction is 55-60%. Doppler and Color Flow revealed no significant aortic regurgitation. There is no significant aortic valvular stenosis. Doppler and Color Flow revealed no mitral valve regurgitation noted. Doppler and Color Flow revealed trace tricuspid regurgitation. The PA pressure was estimated at 28 mmHg. The ascending aorta is moderately dilated at 4.1 cm. DATE: 09/03/20 [id number] HEART CATH Heart Cath Findings: Aorta 140/80 LVEDP 12 mmHg No pullback gradient Left ventriculogram: Ejection fraction 55% with normal wall motion. No evidence of mitral or aortic insufficiency Coronary angiography: Left main is a large-caliber vessel with normal angiographic appearance LAD is a moderate caliber vessel with normal angiographic appearance D1 is a moderate caliber vessel with normal angiographic appearance Left circumflex is a moderate to large caliber nondominant vessel with normal angiographic appearance OM1 is a moderate caliber vessel with normal angiographic appearance RCA is a large caliber dominant vessel with mild 30% stenosis in the mid segment. RPDA is a moderate caliber vessel with normal angiographic appearance Conclusion 1. Normal left ventricular filling pressures 2. Normal LV systolic function, EF 55% 3. Mild nonobstructive coronary artery disease Recommendations Aggressive Medical Therapy DATE: 09/03/20 [id number] ASSESSMENT/PLAN Assessment/Plan 1. Chest pain, palpitations. AMI ruled out. Suspect pressure is related to tachycardia 2. Sinus tachycardiac; reactive. s/p IVFs. Now SR. TSH recently WNL 3. CAD; mild, non-obstructive disease per [facility] 09/18 at noted above 4. Accelerated hypertension; now controlled 5. ARIELLA, dehydration 6. Recent pancreatitis 7. Tobaccoism 8. Ascending aortic aneurysm; moderately dilated at 4.1 cm per echo 09/18. Recommendations Suspect tachycardia is related to dehydration. Now resolved s/p IVFs If tachycardia recurrent, could consider outpatient event monitor No further inpatient cardiac workup warranted at this time. ARIANA EARL APRN Aug 11, 2021 07:43
[2021-08-11 08:56] LABS: CALCIUM 8.2 mg/dL (8.5-10.1); CREATININE 1.4 mg/dL (0.7-1.3); GFR 55.8; POTASSIUM 4.2 mmol/L (3.5-5.1)
--- NOTE | 2021-08-11 09:05 | HP ---
DATE OF SERVICE: 08/11/2021 ADMIT DATE: 08/10/2021 ATTENDING PHYSICIAN: Dr. Graves. CHIEF COMPLAINT: Chest pressure. HISTORY OF PRESENT ILLNESS: The patient is a 40-year-old gentleman admitted through the ED with nonspecific chest pressure. He does not describe it as pain. He has had some diarrhea in the morning. The pain does radiate. He does have a history of pancreatitis. He is not actively drinking at this time. He smokes. He takes blood pressure. His pulse was supposedly 150 per minute at home. It was a sinus tachycardia. He was admitted for further treatment and evaluation serial enzymes. PAST MEDICAL HISTORY: Significant for pancreatitis, supposed blood clots in the brain, exact reactions unclear, asthma and supposed heart attack, but he has no details. PAST SURGICAL HISTORY: Wrist fracture and appendectomy. SOCIAL HISTORY: He smokes cigarettes. He uses alcohol and he smokes marijuana. He works at [employer]. ALLERGIES: He has no known drug allergies. FAMILY HISTORY: His mom at age 58 of complications of diabetes. Father is alive at age 65. CURRENT MEDICINES: He states he takes a blood pressure med at night. He had no idea what the name or the dosage was. He was prescribed this a year ago following a hospitalization at [place] for pancreatitis. REVIEW OF SYSTEMS: Significant for the substance abuse. He denied any COVID exposure. All other systems reviewed and turned out to be negative. PHYSICAL EXAMINATION: GENERAL: When I saw him, this is a pleasant young man. He was alert and sober. VITAL SIGNS: Initial vital signs showed blood pressure 131/76 mmHg, pulse is 70 and regular. Room air sats 92%. He was afebrile. HEENT: Head is without trauma. Pupils are reactive. Sclerae nonicteric. Oropharynx is clear. NECK: Supple, no bruits identified. LUNGS: Clear. CARDIOVASCULAR: Showed regular heart tones. ABDOMEN: Soft. EXTREMITIES: Without edema. NEUROLOGIC FUNCTION: Focally intact. SKIN: Warm and dry. PERTINENT LABORATORY STUDIES: Hemoglobin 13.1 g/dL, white count 6500. Creatinine is 1.7 mg percent. Serology negative for coronavirus. CT of the chest showed no blood clots, no aneurysm, hepatic steatosis. ASSESSMENT: 1. A 40-year-old gentleman with atypical chest pain. 2. History of alcoholism with previous pancreatitis. 3. Tobacco addiction. 4. Essential hypertension. 5. Questionable compliance. PLAN: 1. Observation status. 2. Serial enzymes. 3. Formal Cardiology consult in the morning. 4. Gentle IV hydration. He appears a bit on the dry side. ANTONELLA DR: Arnaud TID: [id number]
--- NOTE | 2021-08-11 18:55 | DS ---
DATE OF DISCHARGE: 08/11/2021 ATTENDING PHYSICIAN: Dr. Graves. FINAL DISCHARGE DIAGNOSES: 1. Atypical chest pain, coronary ischemia ruled out. 2. Mild dehydration, rehydrated. 3. History of pancreatitis. 4. Essential hypertension with questionable compliance. 5. Polysubstance abuse. HISTORY AND PHYSICAL: The patient, age 40, uses alcohol, tobacco and marijuana. He presented with palpitations. He was a bit on the dry side. He responded well to IV fluids. He is admitted for serial enzymes and Cardiology followup. PHYSICAL EXAMINATION: Please see the dictated note. PERTINENT LABORATORY AND X-RAY STUDIES: CBC was normal. Creatinine 1.7 mg/dL. Electrolytes within normal range. Cardiac enzymes negative for coronary ischemia. COURSE IN THE HOSPITAL: The patient was admitted. He responded well to IV hydration. Formal Cardiology consultation was obtained. They recommended outpatient followup as needed. He is on a blood pressure medication. He could not tell me the name of this. He does not have a local primary physician, but he does have medications at home. He is discharged in the next day. Strong encouragement to avoid further alcohol and substance abuse. Whether or not, he will remain to be seen. There are no new meds. He was discharged then from our hospital in stable condition with explicit drug and followup care. JOCELIN DR: Arnaud TID: [id number]
[2021-08-11 19:45] LABS: CHOLESTEROL/HDL RATIO 7.5
== END 2021-08-11 09:05 | disposition home or self-care (01) | DRG 313 ==
LOC: ER 14:10 → 1 SOUTH 16:19 → ER 18:06
PROVIDERS: ADMIT Internal Medicine; ATTEND Internal Medicine
DX: R07.89 Other chest pain (principal); N17.9 Acute kidney failure, unspecified; E86.0 Dehydration; F12.90 Cannabis use, unspecified, uncomplicated; F17.210 Nicotine dependence, cigarettes, uncomplicated; I10 Essential (primary) hypertension; I25.10 Atherosclerotic heart disease of native coronary artery without angina pectoris; I25.2 Old myocardial infarction; I71.2 Thoracic aortic aneurysm, without rupture; J45.909 Unspecified asthma, uncomplicated; K76.0 Fatty (change of) liver, not elsewhere classified; F10.20 Alcohol dependence, uncomplicated; Z20.822 Contact with and (suspected) exposure to COVID-19; F19.10 Other psychoactive substance abuse, uncomplicated; Z83.3 Family history of diabetes mellitus; Z90.49 Acquired absence of other specified parts of digestive tract
CPT/HCPCS: 36415; 71275; 80048; 80053; 80061; 82553; 83690; 83735; 83880; 84484; 85025; 85610; 85730; 87426; 93005; 96361; 96374; 96375; J2405; J3010; J3490; U0003; 99285-25; J7030